=== PATIENT | female | born 1965 | race Hispanic/Latino ===

== ENCOUNTER 2018-02-20 11:18 | Inpatient (IN) | payer OTHER ==
[2018-02-20 11:22] VITALS: BMI 32.5
[2018-02-20] MEDS ORDERED: Levalbuterol 1.25 MG/3 ML Inhal Soln UD IH STA ×2 (11:26)
--- NOTE | 2018-02-20 11:33 | ED PDOC ---
Arrival/HPI - General Time Seen by Provider: 02/20/18 11:24 Historian: Patient - History of Present Illness Narrative History of Present Illness (Text): 02/20/18 11:22 A 53 year old female, whose past medical history includes lung cancer, uterine cancer, and asthma, presents to the emergency department complaining of shortness of breath yesterday. Per EMS, patient was found to have rapid heart rate and was not given any medications in the field. Patient reports also experiencing fever and cough, but denies any pain. No PMD Past Medical History - Provider Review Nursing Documentation Reviewed: Yes - Cardiac Hx Cardiac Disorders: No - Pulmonary Hx Respiratory Disorders: Yes Hx Asthma: Yes Hx Chronic Obstructive Pulmonary Disease (COPD): Yes Hx Lung Cancer: Yes - Neurological Hx Neurological Disorder: No - HEENT Hx HEENT Disorder: No - Renal Hx Renal Disorder: No - Endocrine/Metabolic Hx Endocrine Disorders: No - Hematological/Oncological Hx Blood Disorders: Yes Hx Cancer: Yes Hx Hepatitis B: Yes Hx Hepatitis C: Yes Other/Comment: MRSA abcess on back - Integumentary Hx Dermatological Disorder: No - Musculoskeletal/Rheumatological Hx Musculoskeletal Disorders: No - Gastrointestinal Hx Gastrointestinal Disorders: Yes Hx Gastroesophageal Reflux: Yes - Genitourinary/Gynecological Hx Genitourinary Disorders: No - Psychiatric Hx Psychophysiologic Disorder: Yes Hx Depression: Yes - Surgical History Hx Section: Yes Hx Hysterectomy: Yes Hx Vascular Access Device: Yes (SRI CATH INSERTION X 2 & REMOVAL ) Other/Comment: SPLEENECTOMY 2009 - Anesthesia Hx Anesthesia: Yes Hx Anesthesia Reactions: No Hx Malignant Hyperthermia: No Family/Social History - Physician Review Nursing Documentation Reviewed: Yes Family/Social History: No Known Family HX Smoking Status: Current Some Days Smoker Allergies/Home Meds Allergies/Adverse Reactions: Allergies No Known Allergies Allergy (Verified 02/20/18 19:21) Home Medications: Home Meds Medication Instructions Recorded Confirmed Albuterol HFA [Ventolin HFA 90 1 puff IH QID PRN 08/04/14 08/05/14 mcg/actuation (8 g)] Montelukast [Singulair] 10 mg PO DAILY 08/04/14 08/05/14 Sertraline [Zoloft] 50 mg PO DAILY 08/04/14 08/05/14 Vitamin B Complex & Vitamin C 1 tab PO DAILY 08/04/14 08/05/14 [Strovite] Famotidine [Pepcid] 20 mg PO DAILY 02/20/18 Meloxicam [Mobic] 15 mg PO DAILY 02/20/18 Oxycodone HCl [Roxicodone] 30 mg PO Q6 PRN 02/20/18 fentaNYL 100mcg/hr [Duragesic 100 mcg TD Q72 02/20/18 Patch 100mcg/hr] Review of Systems - Physician Review All systems were reviewed & negative as marked: Yes - Review of Systems Constitutional: Fevers Respiratory: SOB, Cough Cardiovascular: absent: Chest Pain Gastrointestinal: absent: Abdominal Pain Physical Exam Vital Signs Temp Pulse Resp BP Pulse Ox 02/20/18 13:40 169 H 20 92/43 L 89 L 02/20/18 12:55 97.9 F 149 H 20 142/74 89 L 02/20/18 12:31 150 H 02/20/18 11:25 200 H 132/107 H 02/20/18 11:19 97.8 F 200 H 42 H 132/107 H 86 L Appearance: Positive for: Ill-Appearing Pain Distress: None Mental Status: Positive for: Alert and Oriented X 3 - Systems Exam Head: Present: Atraumatic, Normocephalic Respiratory/Chest: Present: Rhonchi (diffuse) Cardiovascular: Present: Irregular Rhythm Abdomen: No: Tenderness, Distention, Peritoneal Signs Upper Extremity: Present: Normal Inspection. No: Cyanosis, Edema Lower Extremity: Present: Normal Inspection. No: Edema Neurological: Present: GCS=15, CN II-XII Intact, Speech Normal Skin: Present: Warm, Dry, Normal Color. No: Rashes Psychiatric: Present: Alert, Oriented x 3, Normal Insight, Normal Concentration Medical Decision Making ED Course and Treatment: 02/20/18 11:25 Impression: 53 year old female with shortness of breath, cough, and fever. Physical exam shows diffuse rhonchi and irregularly irregular rhythm. Plan: -- EKG -- Chest X-ray -- Labs -- Venous Blood Gas -- Cardizem -- Xopenex -- SOLU-Medrol -- Zosyn -- Blood Culture -- Urine Culture -- Urinalysis -- Reassess and disposition Progress Notes: EKG: Ordered, reviewed, and independently interpreted the EKG. Rate : 180 BPM Rhythm : Atrial Fibrillation with Rapid Ventricular Response. Interpretation : No ST-segment elevations or depressions, no T-wave inversions, normal intervals. Comparison : No previous EKG for comparison. 02/20/2018 11:47 Chest X-ray IMPRESSION: Masslike consolidation in the right lung more dense in the upper pole. Findings could represent pneumonia or neoplasm. Correlation with CT scan with intravenous contrast is recommended for further evaluation. Dictator: Mary Garcia MD 02/20/18 11:53 Code Sepsis called. PROCEDURE: INTUBATION Performed by the emergency provider Time: Consent: Discussion of the risks, benefits, and alternatives to the procedure, along with informed consent was precluded by the urgency of the procedure and the patient condition. Timeout: A timeout to verify the correct patient, procedure, and site was performed. Indication: Pre-oxygenation: [id number] Medications: . See MAR for details. ETT Size: Confirmation: Cords directly visualized as tube passed, good bilateral breath sounds, positive CO2 detector color change, tube fogging, adequate chest rise, improving pulse oximetry reading, improved skin color, and absence of gastric sounds,. ETT Secured: The cuff was inflated and the tube was secured appropriately at a distance of cm at the lip. Post-Procedure: There were no immediate complications. CXR Confirmation: {Yes / No} 02/20/2018 13:35 Chest X-ray IMPRESSION: Endotracheal tube in satisfactory position. Dictator: Yonatan Amaya MD 02/23/18 23:06 upon arriavl pt tachycardic, tachypneia, not tolerating bipap. son endorsed h/o of narcotic abuse, suspect w/d. pt intubated for airway proeection. dr ginny kincaid. accepts icu. antibotics started. poor prognosis discussed with family - Critical Care Critical Care Minutes: 60 minutes - Lab Interpretations Microbiology Results: Microbiology Results 02/20/18 11:30 Blood S.aureus & Coag-Neg Staph PNA FISH - Final 02/20/18 11:30 Blood Blood Culture - Final Streptococcus Pneumoniae 02/20/18 11:30 Blood Gram Stain - Final 02/20/18 11:45 Blood Blood Culture - Final Streptococcus Pneumoniae 02/20/18 11:45 Blood Gram Stain - Final Lab Results: 02/20/18 11:30 02/20/18 11:30 Lab Results 02/20/18 12:00: Alcohol, Quantitative < 10 02/20/18 12:00: Salicylates < 1 L, Acetaminophen < 10.0 L 02/20/18 11:30: Sodium 138, Chloride 99, Potassium 3.3 L, Carbon Dioxide 17 L, Anion Gap 25 H, BUN 61 H, Creatinine 1.2, Est GFR ( Amer) 57, Est GFR ( Non-Af Amer) 47, Random Glucose 66 L, Calcium 8.1 L, Magnesium 1.5 L, Total Bilirubin 4.0 H, AST 131 H, ALT 58 H, Alkaline Phosphatase 152 H, Lactate Dehydrogenase 807 H, Total Creatine Kinase 145, Troponin I 0.05, NT-Pro-B Natriuret Pep 6280 H, Total Protein 6.4, Albumin 3.1, Globulin 3.3, Albumin/ Globulin Ratio 0.9 L 02/20/18 11:30: PT 16.5 H, INR 1.42 H, APTT 45.8 H 02/20/18 11:30: WBC 16.5 H, RBC 4.20, Hgb 14.9, Hct 38.8, MCV 92.4, MCH 35.5 H, MCHC 38.4 H, RDW 13.0, Plt Count 83 L, MPV 13.4 H, Gran % 94.9 H, Lymph % (Auto ) 3.9 L, [place] % (Auto) 1.0, Eos % (Auto) 0.0 L, Baso % (Auto) 0.2, Gran # 15.70 H, Lymph # (Auto) 0.6 L, [place] # (Auto) 0.2, Eos # (Auto) 0.0, Baso # (Auto) 0.03 , Neutrophils % (Manual) 92 H, Band Neutrophils % 2, Lymphocytes % (Manual) 4 L , Monocytes % (Manual) 1, Metamyelocytes % 1, Platelet Evaluation Low 02/20/18 11:30: pO2 48, VBG pH 7.30 L, VBG pCO2 34.0 L, VBG HCO3 16.7 L, VBG Total CO2 17.7 L, VBG O2 Sat (Calc) 81.9 H, VBG Base Excess -8.8 L, VBG Potassium 3.2 L, Sodium 135.0, Chloride 98.0, Glucose 69, Lactate 7.8 H*, FiO2 21.0, Venous Blood Potassium 3.2 L I have reviewed the lab results: Yes - RAD Interpretation Radiology Orders: 02/20/18 11:25 CHEST PORTABLE [RAD] Stat - Medication Orders Current Medication Orders: Discontinued Medications Albuterol Sulfate (Albuterol 0.083% Inhal Michelle (2.5 Mg/3 Ml) Ud) 10 mg INH STAT STA Stop: 02/22/18 01:18 Last Admin: 02/22/18 01:45 Dose: 10 mg Albuterol/Ipratropium (Duoneb 3 Mg/0.5 Mg (3 Ml) Ud) 3 ml IH [id number] LEE ANN Last Admin: 02/22/18 14:09 Dose: 3 ml Calcium Gluconate (Calcium Gluconate Iv) 1,000 mg IVP ONCE ONE Stop: 02/21/18 16:21 Last Admin: 02/21/18 17:19 Dose: 1,000 mg IVP Administration Document 02/21/18 17:19 MG (Rec: 02/21/18 17:19 MG [id number]) Charges for Administration # of IVP Administrations 1 Cisatracurium Besylate (Nimbex) 8 mg IV ONCE ONE Stop: 02/20/18 14:35 Last Admin: 02/20/18 15:56 Dose: 8 mg eMAR Start Stop Document 02/20/18 15:56 JUR (Rec: 02/20/18 15:56 J[facility] [place] Intravenous Solution Start Date 02/20/18 Start Time 15:56 Dextrose (Dextrose 50% Inj) 50 ml IVP ONCE ONE Stop: 02/21/18 16:16 Last Admin: 02/21/18 16:20 Dose: 50 ml IVP Administration Document 02/21/18 16:20 MG (Rec: 02/21/18 17:32 MG [id number]) Charges for Administration # of IVP Administrations 1 Dextrose (Dextrose 50% Inj) 50 ml IVP ONCE ONE Stop: 02/21/18 23:17 Last Admin: 02/21/18 23:57 Dose: 50 ml IVP Administration Document 02/21/18 23:57 QES (Rec: 02/22/18 00:16 QES [id number]) Charges for Administration # of IVP Administrations 1 Dextrose (Dextrose 50% Inj) 50 ml IVP ONCE ONE Stop: 02/22/18 07:36 Last Admin: 02/22/18 08:39 Dose: 50 ml IVP Administration Document 02/22/18 08:39 [facility] (Rec: 02/22/18 08:39 [facility] [id number]) Charges for Administration # of IVP Administrations 1 Dextrose (Dextrose 50% Inj) 50 ml IVP ONCE ONE Stop: 02/22/18 14:16 Digoxin (Lanoxin) 0.25 mg IVP ONCE ONE Stop: 02/20/18 15:15 Last Admin: 02/20/18 15:31 Dose: 0.25 mg MAR Apical Pulse Rate Document 02/20/18 15:31 JUR (Rec: 02/20/18 15:32 JUR [id number]) Apical Pulse Rate Apical Pulse Rate (60-90 beats/min) 160 IVP Administration Document 02/20/18 15:31 JUR (Rec: 02/20/18 15:32 [email or web address] Charges for Administration # of IVP Administrations 1 Digoxin (Lanoxin) 0.25 mg IVP ONCE ONE Stop: 02/20/18 15:33 Last Admin: 02/20/18 15:05 Dose: 0.25 mg MAR Apical Pulse Rate Document 02/20/18 15:05 JUR (Rec: 02/20/18 17:14 [facility] Apical Pulse Rate Apical Pulse Rate (60-90 beats/min) 140 IVP Administration Document 02/20/18 15:05 JUR (Rec: 02/20/18 17:14 [facility] Charges for Administration # of IVP Administrations 1 Digoxin (Lanoxin) 0.5 mg IVP STAT STA Stop: 02/21/18 09:36 Last Admin: 02/21/18 09:41 Dose: 0.5 mg MAR Apical Pulse Rate Document 02/21/18 09:41 MG (Rec: 02/21/18 09:41 MG [id number]) Apical Pulse Rate Apical Pulse Rate (60-90 beats/min) 120 IVP Administration Document 02/21/18 09:41 MG (Rec: 02/21/18 09:41 MG [id number]) Charges for Administration # of IVP Administrations 1 Diltiazem HCl (Cardizem) 20 mg IVP STAT STA Stop: 02/20/18 11:27 Last Admin: 02/20/18 11:55 Dose: Enoxaparin Sodium (Lovenox) 86 mg SC STAT STA PRN Reason: Protocol Stop: 02/20/18 12:05 Last Admin: 02/20/18 12:30 Dose: 86 mg Subcutaneous Administrations Document 02/20/18 12:30 SRE (Rec: 02/20/18 12:31 SRE [id number]) Injection Site MAR Injection Site Left Abdomen Charges for Administration # of Subcutaneous Administrations 1 Enoxaparin Sodium (Lovenox) 86 mg SC Q12H LEE ANN PRN Reason: Protocol Last Admin: 02/21/18 00:14 Dose: 86 mg Subcutaneous Administrations Document 02/21/18 00:14 PD (Rec: 02/21/18 00:14 PD [id number]) Charges for Administration # of Subcutaneous Administrations 1 Enoxaparin Sodium (Lovenox) 86 mg SC DAILY LEE ANN PRN Reason: Protocol Hydrocortisone Sodium Succinate (Solu-Cortef) 50 mg IVP Q6 [facility] Last Admin: 02/22/18 05:29 Dose: 50 mg IVP Administration Document 02/22/18 05:29 QES (Rec: 02/22/18 05:29 QES [id number]) Charges for Administration # of IVP Administrations 1 Piperacillin Sod/Tazobactam Sod (Zosyn 3.375 In Ns 100ml) 100 mls @ 200 mls/hr IVPB STAT STA PRN Reason: Protocol Stop: 02/20/18 12:04 Last Admin: 02/20/18 11:54 Dose: 200 mls/hr eMAR Start Stop Document 02/20/18 11:54 SRE (Rec: 02/20/18 11:54 SRE [id number]) Intravenous Solution Start Date 02/20/18 Start Time 11:54 End Date 02/20/18 End time 12:55 Total Infusion Time 61 Vancomycin HCl (Vancomycin 1gm) 1 gm in 250 mls @ 167 mls/hr IVPB STAT STA PRN Reason: Protocol Stop: 02/20/18 13:04 Last Admin: 02/20/18 12:41 Dose: 167 mls/hr eMAR Start Stop Document 02/20/18 12:41 SRE (Rec: 02/20/18 12:42 SRE [id number]) Intravenous Solution Start Date 02/20/18 Start Time 12:42 End Date 02/20/18 End time 14:20 Total Infusion Time 98 Sodium Chloride (Sodium Chloride 0.9%) 500 mls @ 999 mls/hr IV .Q31M STA Stop: 02/20/18 12:23 Last Admin: 02/20/18 12:05 Dose: 999 mls/hr eMAR Start Stop Document 02/20/18 12:05 SRE (Rec: 02/20/18 12:05 SRE [id number]) Intravenous Solution Start Date 02/20/18 Start Time 12:00 End Date 02/20/18 End time 13:00 Total Infusion Time 60 diltiaZEM IVPB 100mg in NS (Cardizem 100mg In Ns) 100 mls @ 5 mls/hr IV .Q20H PRN; Protocol; 5 MG/HR PRN Reason: TITRATE PER MD ORDER Last Titration: 02/21/18 12:13 Dose: 0 mg/hr, 0 mls/hr MAR Pulse Rate Document 02/21/18 12:13 ALIPM (Rec: 02/21/18 12:[address]) Pulse Rate Pulse Rate (60-90) 80 Titration Intervention Document 02/21/18 12:13 ALIPM (Rec: 02/21/18 12:[address]) Titration Intake Titration Intake 50 Cumulative Intake 60 Cumulative Intake (Rx) 160 Waste Amount 0 Container Volume 40 Titration Dosing Titration Dose 0 IV Rate 0 Intake/Decrease Paused Cumulative Dose 160 Propofol (Diprivan) 1,000 mg in 100 mls @ 2.585 mls/hr IV .Q24H PRN; Protocol; 5 MCG/KG/MIN PRN Reason: TITRATE PER MD ORDER Last Titration: 02/20/18 18:39 Dose: 0 mcg/kg/min, 0 mls/hr Yen Agitation Sedation Document 02/20/18 18:39 JUR (Rec: 02/20/18 18:43 [facility] Yen Agitation Sedation Scale Yen Agitation Sedation Scale Score -2 Light Sedation: briefly awakens with eye contact to voice (<10 sec) Titration Intervention Document 02/20/18 18:39 JUR (Rec: 02/20/18 18:43 [facility] [place]) Titration Intake Titration Intake 50 Cumulative Intake 50 Cumulative Intake (Rx) 50 Waste Amount 0 Container Volume 50 Titration Dosing Titration Dose 0 IV Rate 0 Intake/Decrease Paused Cumulative Dose 500 Fentanyl Citrate (Fentanyl Citrate/Sodium Chloride 1 Mg/100 Ml) 1,000 mcg in 100 mls @ 2 mls/hr IV .Q24H PRN; Protocol; 20 MCG/HR PRN Reason: TITRATE PER MD ORDER Last Titration: 02/21/18 14:12 Dose: 0 mcg/hr, 0 mls/hr Yen Agitation Sedation Document 02/21/18 14:12 MG (Rec: 02/21/18 14:49 MG [id number]) Yen Agitation Sedation Scale Yen Agitation Sedation Scale Score -1 Drowsy: Not fully alert, sustained awakening (>10 sec) to voice Titration Intervention Document 02/21/18 14:12 MG (Rec: 02/21/18 14:49 MG [id number]) Titration Intake Titration Intake 95 Cumulative Intake 95 Cumulative Intake (Rx) 195 Waste Amount 0 Container Volume 5 Titration Dosing Titration Dose 0 IV Rate 0 Intake/Decrease Paused Cumulative Dose 1950 Acetylcysteine 12,930 mg/ (Dextrose) 264.65 mls @ 200 mls/hr IVPB ONCE ONE Stop: 02/20/18 14:49 Last Admin: 02/20/18 15:04 Dose: 200 mls/hr eMAR Start Stop Document 02/20/18 15:04 JUR (Rec: 02/20/18 15:04 JUR [email or web address]) Intravenous Solution Start Date 02/20/18 Start Time 15:04 Doxycycline Hyclate 100 mg/ (Sodium Chloride) 100 mls @ 100 mls/hr IVPB Q12 LEE ANN PRN Reason: Protocol Last Admin: 02/22/18 10:55 Dose: 100 mls/hr eMAR Start Stop Document 02/22/18 10:55 KAC (Rec: 02/22/18 10:55 KAC [id number]) Intravenous Solution Start Date 02/22/18 Start Time 10:55 End Date 02/22/18 End time 11:55 Total Infusion Time 60 Sodium Chloride (Sodium Chloride 0.9%) 500 mls @ 999 mls/hr IV .Q31M STA Stop: 02/20/18 14:19 Last Admin: 02/20/18 13:50 Dose: 999 mls/hr eMAR Start Stop Document 02/20/18 13:50 JUR (Rec: 02/20/18 17:36 [facility] Intravenous Solution Start Date 02/20/18 Start Time 13:50 Magnesium Sulfate 2 gm/ Sodium (Chloride) 104 mls @ 102 mls/hr IV ONCE ONE Stop: 02/20/18 14:50 Last Admin: 02/20/18 15:11 Dose: 102 mls/hr eMAR Start Stop Document 02/20/18 15:11 JUR (Rec: 02/20/18 15:11 JUR [email or web address]) Intravenous Solution Start Date 02/20/18 Start Time 15:11 End Date 02/20/18 End time 16:11 Total Infusion Time 60 Potassium Chloride (Potassium Chloride 10 Meq/100 Ml) 10 meq in 100 mls @ 50 mls/hr IVPB Q2H [facility] Stop: 02/20/18 17:59 Last Admin: 02/20/18 17:50 Dose: 50 mls/hr eMAR Start Stop Document 02/20/18 17:50 JUR (Rec: 02/20/18 17:50 [facility] Intravenous Solution Start Date 02/20/18 Start Time 17:50 End Date 02/20/18 End time 19:50 Total Infusion Time 120 Dextrose/Sodium Chloride (Dextrose 5%/0.9% Ns 1000 Ml) 1,000 mls @ 150 mls/hr IV .Q6H40M [facility] Last Admin: 02/21/18 04:08 Dose: 150 mls/hr eMAR Start Stop Document 02/21/18 04:08 PD (Rec: 02/21/18 04:08 PD [id number]) Intravenous Solution Start Date 02/21/18 Start Time 04:08 Acetylcysteine 4,310 mg/ (Dextrose) 521.55 mls @ 125 mls/hr IVPB ONCE ONE Stop: 02/20/18 18:30 Last Admin: 02/20/18 18:37 Dose: 125 mls/hr eMAR Start Stop Document 02/20/18 18:37 JUR (Rec: 02/20/18 18:38 [facility] Intravenous Solution Start Date 02/20/18 Start Time 17:50 Cisatracurium Besylate 100 mg/ (Sodium Chloride) 260 mls @ 13.44 mls/hr IV .[id number] PRN; Protocol; 1 MCG/KG/MIN PRN Reason: TITRATE PER MD ORDER Last Titration: 02/21/18 14:10 Dose: 0 mcg/kg/min, 0 mls/hr Train of Four (TOF) Document 02/21/18 14:10 MG (Rec: 02/21/18 14:51 MG [id number]) Number of twitches: 0 of 4 Titration Intervention Document 02/21/18 14:10 MG (Rec: 02/21/18 14:51 MG [id number]) Titration Intake Titration Intake 14 Cumulative Intake 14 Cumulative Intake (Rx) 534 Waste Amount 0 Container Volume 246 Titration Dosing Titration Dose 0 IV Rate 0 Intake/Decrease Paused Cumulative Dose 205.3844 Sodium Chloride (Sodium Chloride 0.9%) 1,000 mls @ 999 mls/hr IV .Q1H1M STA Stop: 02/20/18 15:38 Last Admin: 02/20/18 17:23 Dose: eMAR Start Stop Document 02/20/18 17:23 JUR (Rec: 02/20/18 17:24 JUR [facility] [place] Intravenous Solution Start Date 02/20/18 Start Time 17:24 Midazolam 100 mg/100ml in NS (Midazolam 100 Mg/100ml In Ns) 100 mg in 100 mls @ 1 mls/hr IV .Q24H PRN; Protocol; 1 MG/HR PRN Reason: Sedation Last Titration: 02/21/18 14:12 Dose: 0 mg/hr, 0 mls/hr Yen Agitation Sedation Document 02/21/18 14:12 MG (Rec: 02/21/18 14:50 MG [id number]) Yen Agitation Sedation Scale Yen Agitation Sedation Scale Score -1 Drowsy: Not fully alert, sustained awakening (>10 sec) to voice Titration Intervention Document 02/21/18 14:12 MG (Rec: 02/21/18 14:50 MG [id number]) Titration Intake Titration Intake 30 Cumulative Intake 30 Cumulative Intake (Rx) 130 Waste Amount 0 Container Volume 70 Titration Dosing Titration Dose 0 IV Rate 0 Intake/Decrease Paused Cumulative Dose 130 NOREPINEPHRINE BIT/0.9 % NACL (Levophed 4 Mg/ 250 Ml Ns Premixed) 4 mg in 250 mls @ 15 mls/hr IV .[id number] PRN; Protocol; 4 MCG/MIN PRN Reason: TITRATE PER MD ORDER Last Titration: 02/22/18 01:20 Dose: 10 mcg/min, 37.5 mls/hr Titration Intervention Document 02/22/18 01:20 QES (Rec: 02/22/18 04:00 QES [id number]) Titration Intake Titration Intake 30 Cumulative Intake 30 Cumulative Intake (Rx) 1,280 Waste Amount 0 Container Volume 220 Titration Dosing Titration Dose 10 IV Rate 37.5 Intake/Decrease Increased Cumulative Dose 20.48 Sodium Chloride (Sodium Chloride 0.9%) 1,000 mls @ 999 mls/hr IV .Q1H1M STA Stop: 02/20/18 15:48 Last Admin: 02/20/18 14:45 Dose: 999 mls/hr eMAR Start Stop Document 02/20/18 14:45 JUR (Rec: 02/20/18 17:27 [facility] Intravenous Solution Start Date 02/20/18 Start Time 14:45 Vasopressin 20 units/ Sodium (Chloride) 101 mls @ 9.09 mls/hr IV .Q11H7M LEE ANN; 0.03 U/MIN PRN Reason: Protocol Last Admin: 02/22/18 10:59 Dose: 9.09 mls/hr eMAR Start Stop Document 02/22/18 10:59 KAC (Rec: 02/22/18 11:00 [id number] Intravenous Solution Start Date 02/22/18 Start Time 11:00 MAR Blood Pressure Document 02/22/18 10:59 KAC (Rec: 02/22/18 11:00 [id number] Blood Pressure Blood Pressure (100/60-150/90) 117/31 Meropenem (Merrem Iv 1 Gm Premix) 50 mls @ 100 mls/hr IVPB Q12 LEE ANN PRN Reason: Protocol Last Admin: 02/20/18 22:31 Dose: 100 mls/hr eMAR Start Stop Document 02/20/18 22:31 PD (Rec: 02/20/18 22:31 PD [id number]) Intravenous Solution Start Date 02/20/18 Start Time 22:31 Linezolid (Zyvox 600mg/300ml D5w) 600 mg in 300 mls @ 200 mls/hr IVPB Q12 LEE ANN PRN Reason: Protocol Stop: 02/27/18 16:46 Last Admin: 02/21/18 22:01 Dose: 200 mls/hr eMAR Start Stop Document 02/21/18 22:01 QES (Rec: 02/21/18 22:01 QES [id number]) Intravenous Solution Start Date 02/21/18 Start Time 22:01 End Date 02/21/18 End time 23:31 Total Infusion Time 90 Acetaminophen (Ofirmev) 1,000 mg in 100 mls @ 400 mls/hr IVPB Q4H PRN PRN Reason: Temperature Stop: 02/23/18 01:04 Last Admin: 02/21/18 09:00 Dose: 400 mls/hr eMAR Start Stop Document 02/21/18 09:00 MG (Rec: 02/21/18 09:17 MG [id number]) Intravenous Solution Start Date 02/21/18 Start Time 09:00 [facility] Pain Assessment Document 02/21/18 09:00 MG (Rec: 02/21/18 09:17 MG [id number]) Pain Reassessment Is this a pain reassessment? No Re-Assess: [facility] Pain Assessment Document 02/21/18 10:00 MG (Rec: 02/21/18 10:20 MG [id number]) Pain Reassessment Is this a pain reassessment? No Epinephrine HCl 1 mg/ Sodium (Chloride) 51 mls @ 3.06 mls/hr IV .[id number] PRN; Protocol; 1 MCG/MIN PRN Reason: TITRATE PER MD ORDER Last Titration: 02/21/18 06:22 Dose: 5 mcg/min, 15.3 mls/hr Titration Intervention Document 02/21/18 06:22 PD (Rec: 02/21/18 06:22 PD [id number]) Titration Intake Titration Intake 11 Cumulative Intake 11 Cumulative Intake (Rx) 11 Waste Amount 0 Container Volume 40 Titration Dosing Titration Dose 5 IV Rate 15.3 Intake/Decrease Increased Cumulative Dose 0.2156 Phenylephrine HCl 40 mg/ (Sodium Chloride) 254 mls @ 38.1 mls/hr IV .Q6H40M PRN ; Protocol; 100 MCG/MIN PRN Reason: TITRATE PER MD ORDER Last Titration: 02/21/18 14:12 Dose: 0 mcg/min, 0 mls/hr MAR Pulse and Blood Pressure Document 02/21/18 14:12 MG (Rec: 02/21/18 14:51 MG [id number]) Pulse Pulse Rate (60-90) 75 Blood Pressure Blood Pressure (100/60-150/90) 125/56 Titration Intervention Document 02/21/18 14:12 MG (Rec: 02/21/18 14:51 MG [id number]) Titration Intake Titration Intake 85 Cumulative Intake 179 Cumulative Intake (Rx) 179 Waste Amount 0 Container Volume 75 Titration Dosing Titration Dose 0 IV Rate 0 Intake/Decrease Paused Cumulative Dose 28.1889 Pantoprazole Sodium (Protonix 40mg Ivpb) 40 mg in 100 mls @ 20 mls/hr IVPB .Q5H LEE ANN Last Admin: 02/22/18 10:50 Dose: 20 mls/hr eMAR Start Stop Document 02/22/18 10:50 KAC (Rec: 02/22/18 10:50 KAC [id number]) Intravenous Solution Start Date 02/22/18 Start Time 10:50 Meropenem (Merrem Iv 1 Gm Premix) 50 mls @ 100 mls/hr IVPB Q8 LEE ANN PRN Reason: Protocol Last Admin: 02/22/18 05:30 Dose: 100 mls/hr eMAR Start Stop Document 02/22/18 05:30 QES (Rec: 02/22/18 05:30 QES [id number]) Intravenous Solution Start Date 02/22/18 Start Time 05:30 End Date 02/22/18 End time 06:00 Total Infusion Time 30 Daptomycin 520 mg/ Sodium (Chloride) 100 mls @ 200 mls/hr IV ONCE ONE Stop: 02/21/18 09:44 Last Admin: 02/21/18 11:18 Dose: 200 mls/hr eMAR Start Stop Document 02/21/18 11:18 MG (Rec: 02/21/18 11:19 MG [id number]) Intravenous Solution Start Date 02/21/18 Start Time 11:18 End Date 02/21/18 End time 11:48 Total Infusion Time 30 Calcium Gluconate 1,000 mg/ (Sodium Chloride) 110 mls @ 110 mls/hr IVPB ONCE ONE Stop: 02/21/18 13:11 Last Admin: 02/21/18 12:36 Dose: 110 mls/hr eMAR Start Stop Document 02/21/18 12:36 MG (Rec: 02/21/18 12:37 MG [id number]) Intravenous Solution Start Date 02/21/18 Start Time 12:36 Sodium Chloride (Sodium Chloride 0.9%) 1,000 mls @ 999 mls/hr IV .Q1H1M [facility] Stop: 02/21/18 13:19 Last Admin: 02/21/18 12:20 Dose: 999 mls/hr eMAR Start Stop Document 02/21/18 12:20 MG (Rec: 02/21/18 12:20 MG [id number]) Intravenous Solution Start Date 02/21/18 Start Time 12:20 Sodium Bicarbonate 150 meq/ (Dextrose) 1,150 mls @ 100 mls/hr IV .[id number] [facility] Last Admin: 02/21/18 14:07 Dose: 100 mls/hr eMAR Start Stop Document 02/21/18 14:07 MG (Rec: 02/21/18 14:09 MG [id number]) Intravenous Solution Start Date 02/21/18 Start Time 14:08 Sodium Bicarbonate 150 meq/ (Dextrose) 1,150 mls @ 150 mls/hr IV .Q7H40M [facility] Last Admin: 02/22/18 08:29 Dose: 150 mls/hr eMAR Start Stop Document 02/22/18 08:29 KAC (Rec: 02/22/18 08:29 KAC [id number]) Intravenous Solution Start Date 02/22/18 Start Time 08:29 Calcium Gluconate 1,000 mg/ (Dextrose) 110 mls @ 110 mls/hr IVPB ONCE ONE Stop: 02/22/18 00:15 Last Admin: 02/22/18 00:16 Dose: 110 mls/hr eMAR Start Stop Document 02/22/18 00:16 QES (Rec: 02/22/18 00:17 QES [id number]) Intravenous Solution Start Date 02/22/18 Start Time 00:16 End Date 02/22/18 End time 01:16 Total Infusion Time 60 Meropenem 500 mg/ Sodium (Chloride) 50 mls @ 100 mls/hr IVPB Q12 LEE ANN PRN Reason: Protocol Stop: 03/01/18 10:01 Last Admin: 02/22/18 10:52 Dose: 100 mls/hr eMAR Start Stop Document 02/22/18 10:52 KAC (Rec: 02/22/18 10:54 KAC [id number]) Intravenous Solution Start Date 02/22/18 Start Time 10:53 End Date 02/22/18 End time 11:27 Total Infusion Time 34 Vancomycin HCl 2 gm/ Sodium (Chloride) 500 mls @ 170 mls/hr IVPB ONCE ONE PRN Reason: Protocol Stop: 02/22/18 11:36 Last Admin: 02/22/18 10:54 Dose: 170 mls/hr eMAR Start Stop Document 02/22/18 10:54 KAC (Rec: 02/22/18 10:54 KAC [id number]) Intravenous Solution Start Date 02/22/18 Start Time 09:00 End Date 02/22/18 End time 11:55 Total Infusion Time 175 Calcium Gluconate 1,000 mg/ (Dextrose) 110 mls @ 110 mls/hr IVPB ONCE ONE Stop: 02/22/18 10:20 Last Admin: 02/22/18 10:50 Dose: 110 mls/hr eMAR Start Stop Document 02/22/18 10:50 KAC (Rec: 02/22/18 10:51 KAC [id number]) Intravenous Solution Start Date 02/22/18 Start Time 10:51 End Date 02/22/18 End time 11:51 Total Infusion Time 60 Insulin Human Regular (Humulin R Med) 0 units SC Q4H LEE ANN PRN Reason: Protocol Last Admin: 02/22/18 05:44 Dose: 3 units MAR Blood Glucose Document 02/22/18 05:44 QES (Rec: 02/22/18 05:44 QES [id number]) Blood Glucose Finger Stick Blood Glucose (70-120) 244 Subcutaneous Administrations Document 02/22/18 05:44 QES (Rec: 02/22/18 05:44 QES [id number]) Injection Site MAR Injection Site Right Arm Charges for Administration # of Subcutaneous Administrations 1 Insulin Human Regular (Humulin R) 10 units IV STAT STA Stop: 02/21/18 16:16 Last Admin: 02/21/18 16:20 Dose: 1 units eMAR Start Stop Document 02/21/18 16:20 MG (Rec: 02/21/18 17:32 MG [id number]) Intravenous Solution Start Date 02/21/18 Start Time 16:20 Insulin Human Regular (Humulin R) 10 units IVP ONCE ONE Stop: 02/21/18 23:18 Last Admin: 02/21/18 23:57 Dose: 10 units IVP Administration Document 02/21/18 23:57 QES (Rec: 02/22/18 00:16 QES [id number]) Charges for Administration # of IVP Administrations 1 Insulin Human Regular (Humulin R) 10 units SC STAT STA Stop: 02/22/18 07:36 Last Admin: 02/22/18 08:38 Dose: 10 units Subcutaneous Administrations Document 02/22/18 08:38 KA (Rec: 02/22/18 08:38 [facility] [id number]) Charges for Administration # of Subcutaneous Administrations 1 Insulin Human Regular (Humulin R) 10 units IV ONCE ONE Stop: 02/22/18 14:16 Levalbuterol HCl (Xopenex) 1.25 mg IH STAT STA Stop: 02/20/18 11:27 Last Admin: 02/20/18 11:52 Dose: 1.25 mg Levalbuterol HCl (Xopenex) 1.25 mg IH STAT STA Stop: 02/20/18 11:27 Last Admin: 02/20/18 11:40 Dose: 1.25 mg Levalbuterol HCl (Xopenex) 0.63 mg IH [id number] [facility] Last Admin: 02/21/18 06:56 Dose: 0.63 mg Lorazepam (Ativan) 1 mg IVP ONCE ONE PRN Reason: Protocol Stop: 02/20/18 12:10 Last Admin: 02/20/18 12:20 Dose: 1 mg IVP Administration Document 02/20/18 12:20 SRE (Rec: 02/20/18 12:34 SRE [id number]) Charges for Administration # of IVP Administrations 1 Methylprednisolone (Solu-Medrol) 125 mg IVP STAT STA Stop: 02/20/18 11:27 Last Admin: 02/20/18 11:52 Dose: 125 mg IVP Administration Document 02/20/18 11:52 SRE (Rec: 02/20/18 11:52 SRE [id number]) Charges for Administration # of IVP Administrations 1 Morphine Sulfate (Morphine) 4 mg IVP STAT STA Stop: 02/22/18 14:18 Last Admin: 02/22/18 14:34 Dose: 4 mg MAR Pain Assessment Document 02/22/18 14:34 [facility] (Rec: 02/22/18 14:34 [facility] [id number]) Pain Reassessment Is this a pain reassessment? No Sleep Is patient sleeping during reassessment? No Presence of Pain Presence of Pain No Pain Scale Used Pain Scale Used terminal e IVP Administration Document 02/22/18 14:34 [facility] (Rec: 02/22/18 14:34 [facility] [id number]) Charges for Administration # of IVP Administrations 1 Pantoprazole Sodium (Protonix Inj) 40 mg IVP DAILY LEE ANN Pneumococcal Polyvalent Vaccine (Pneumovax 23 Vaccine) 0.5 ml IM .ONCE ONE Stop: 02/20/18 21:15 Sodium Bicarbonate (Sodium Bicarbonate 8.4% (50 Meq) Syringe) 50 meq IVP ONCE ONE Stop: 02/21/18 03:37 Last Admin: 02/21/18 03:46 Dose: 50 meq IVP Administration Document 02/21/18 03:46 PD (Rec: 02/21/18 03:47 PD [id number]) Charges for Administration # of IVP Administrations 1 Sodium Bicarbonate (Sodium Bicarbonate 8.4% (50 Meq) Syringe) 50 meq IVP ONCE ONE Stop: 02/21/18 16:17 Last Admin: 02/21/18 17:00 Dose: 50 meq IVP Administration Document 02/21/18 17:00 MG (Rec: 02/21/18 17:20 MG [id number]) Charges for Administration # of IVP Administrations 1 Sodium Bicarbonate (Sodium Bicarbonate 8.4% (50 Meq) Syringe) 50 meq IVP ONCE ONE Stop: 02/21/18 16:40 Last Admin: 02/21/18 17:26 Dose: 50 meq IVP Administration Document 02/21/18 17:26 MG (Rec: 02/21/18 17:26 MG [id number]) Charges for Administration # of IVP Administrations 1 Sodium Polystyrene Sulfonate (Kayexalate Susp) 30 gm ID ONCE ONE Stop: 02/22/18 02:19 Last Admin: 02/22/18 03:11 Dose: 30 gm - Scribe Statement The provider has reviewed the documentation as recorded by the Aamir Rowe Provider Scribe Attestation: All medical record entries made by the Aamir were at my direction and personally dictated by me. I have reviewed the chart and agree that the record accurately reflects my personal performance of the history, physical exam, medical decision making, and the department course for this patient. I have also personally directed, reviewed, and agree with the discharge instructions and disposition. Disposition/Present on Arrival - Present on Arrival Any Indicators Present on Arrival: No - Disposition Have Diagnosis and Disposition been Completed?: Yes Diagnosis: Sepsis, Uterine cancer, Pneumonia, Elevated LFTs Disposition: HOSPITALIZED Disposition Time: 02:00 Condition: CRITICAL
[2018-02-20] MEDS ORDERED: Vancomycin 1gm in NS 250ml 1 GM/250 ML BAG IVPB STA (11:35)
[2018-02-20] MEDS ORDERED: Piperacillin/Tazobact 3.375 gm 100 ML IVPB STA (11:35)
[2018-02-20 11:49] LABS: VENOUS BLOOD GAS BASE EXCESS -8.8 mmol/L (0.0-2.0); VENOUS BLOOD GAS PO2 48 mm/Hg (30-55)
--- NOTE | 2018-02-20 11:49 | RAD ---
HISTORY: Cough COMPARISON: PET-CT from 08/23/2017 FINDINGS: The right MediPort terminates at the cavoatrial junction. LUNGS: The lungs are well inflated. There is masslike consolidation in the right lung, more dense in the upper lobe. The left lung is clear. PLEURA: No significant pleural effusion identified, no pneumothorax apparent. CARDIOVASCULAR: Normal. OSSEOUS STRUCTURES: No significant abnormalities. VISUALIZED UPPER ABDOMEN: Normal. OTHER FINDINGS: None. IMPRESSION: Masslike consolidation in the right lung more dense in the upper pole. Findings could represent pneumonia or neoplasm. Correlation with CT scan with intravenous contrast is recommended for further evaluation.
[2018-02-20] MEDS ORDERED: Sodium Chloride 0.9% 500 ML IV STA ×2 (11:53→13:49)
[2018-02-20 11:58] LABS: ALB/GLOB RATIO 0.9 (1.1-1.8); ALBUMIN 3.1 g/dL (3.0-4.8); BASO # 0.03 K/mm3 (0.0-2.0); BASO % 0.2 % (0.0-3.0); CALCIUM 8.1 mg/dL (8.4-10.5); GRAN % 94.9 % (50.0-68.0); HEMOGLOBIN 14.9 g/dL (12.0-16.0); LYMPH # 0.6 (1.2-3.4); LYMPH % 3.9 % (22.0-35.0); MEAN CELL VOLUME 92.4 fl (80.0-105.0); MEAN CORPUSCULAR HEMOGLOBIN 35.5 pg (25.0-35.0); MEAN CORPUSCULAR HGB CONC 38.4 g/dl (31.0-37.0); MEAN PLATELET VOLUME 13.4 fl (7.0-11.0); MONO # 0.2 (0.1-0.6); PLATELET COUNT 83 10^3/uL (120.0-450.0); WHITE BLOOD COUNT 16.5 10^3/ul (4.5-11.0)
[2018-02-20] MEDS ORDERED: Enoxaparin 100 mg Syringe SC STA (12:04)
[2018-02-20 12:08] LABS: TROPONIN I 0.05 ng/mL
[2018-02-20 12:19] LABS: INR 1.42 (0.93-1.08); PARTIAL THROMBOPLASTIN TIME 45.8 Seconds (25.1-36.5); PROTHROMBIN TIME 16.5 SECONDS (9.4-12.5)
[2018-02-20 12:23] LABS: BAND 2 % (0-2); LYMPHOCYTE 4 % (22.0-35.0); METAMYELOCYTE 1 %; MONOCYTE 1 % (1.0-6.0); NEUTROPHIL 92 % (50.0-70.0)
[2018-02-20 12:25] LABS: PLATELET ESTIMATE LOW (NORMAL)
[2018-02-20] MEDS: diltiaZEM IVPB 100mg in NS 100 ML IV PRN ×2 (12:33→21:08)
[2018-02-20 12:46] LABS: ACETAMINOPHEN < 10.0 ug/ml (10.0-20.0); SALICYLATE < 1 mg/dL (2.0-20.0)
[2018-02-20] MEDS ORDERED: Succinylcholine 200 mg/10 ml Inj IV ONE (12:50)
[2018-02-20] MEDS ORDERED: Etomidate 20 mg/10ml Inj IV ONE (12:50)
[2018-02-20] MEDS ORDERED: Propofol 10 mg/ml 1,000 MG/100 ML VIAL IV PRN (13:09)
[2018-02-20] MEDS ORDERED: Propofol 10 mg/ml 1,000 MG/100 ML VIAL ONE (13:10)
--- NOTE | 2018-02-20 13:37 | RAD ---
HISTORY: intubation COMPARISON: No prior. FINDINGS: LUNGS: There is dense consolidation in the right upper lobe and right middle lobe consistent with pneumonia. There an endotracheal tube in satisfactory position PLEURA: No significant pleural effusion identified, no pneumothorax apparent. CARDIOVASCULAR: Normal. OSSEOUS STRUCTURES: No significant abnormalities. VISUALIZED UPPER ABDOMEN: Normal. OTHER FINDINGS: None. IMPRESSION: Endotracheal tube in satisfactory position
[2018-02-20] MEDS ORDERED: Magnesium Sulfate 2 GM in Sodium Chloride 0.9% 100 ML IV ONE (13:49)
[2018-02-20 13:54] LABS: ARTERIAL BLOOD GAS HCO3 15.2 mmol/L (21-28); ARTERIAL BLOOD GAS O2 SAT 89.9 % (95-98); ARTERIAL BLOOD GAS PCO2 33 mm/Hg (35-45); ARTERIAL BLOOD GAS PH 7.27 (7.35-7.45); ARTERIAL BLOOD GAS TCO2 16.2 mmol.L (22-28)
[2018-02-20] MEDS ORDERED: Levalbuterol 0.63 MG/3 ML Inhal Soln UD IH PRN (13:56)
[2018-02-20] MEDS ORDERED: ACETYLCYSTEINE IVPB ONE (14:20)
[2018-02-20] MEDS ORDERED: WATER IVPB ONE (14:20)
[2018-02-20] MEDS ORDERED: DEXTROSE 5% IVPB ONE (14:20)
[2018-02-20 14:37] LABS: URINE BILIRUBIN MODERATE (NEGATIVE); URINE BLOOD NEGATIVE (NEGATIVE); URINE GLUCOSE (UA) 100 mg/dL (NEGATIVE); URINE LEUKOCYTE ESTERASE TRACE Leu/uL (NEGATIVE); URINE PROTEIN 100 mg/dL (<30 mg/dL)
[2018-02-20 14:38] LABS: HCG,QUALITATIVE URINE NEGATIVE (NEGATIVE)
[2018-02-20] MEDS ORDERED: Sodium Chloride 0.9% 1,000 ML IV STA ×2 (14:38→14:48)
[2018-02-20 14:40] LABS: URINE APPEARANCE SL CLOUDY (CLEAR); URINE COLOR DARK YELLOW (YELLOW)
[2018-02-20 14:43] LABS: URINE BACTERIA LARGE (NEG)
[2018-02-20 14:44] LABS: URINE FINE GRANULAR CAST 0 - 2 /hpf (0-2)
[2018-02-20 14:45] LABS: URINE AMORPHOUS SEDIMENT MODERATE; URINE COARSE GRANULAR CAST TRACE /hpf (0-2)
[2018-02-20] MEDS ORDERED: NOREPINEPHRINE BIT/0.9 % NACL 4 MG/250 ML BAG IV ONE (14:46)
[2018-02-20 14:48] LABS: BARBITURATES, UR NEGATIVE (NEGATIVE); BENZODIAZEPINES, UR NEGATIVE (NEGATIVE); OPIATES, UR POSITIVE (NEGATIVE); PHENCYCLIDINE, UR NEGATIVE (NEGATIVE)
[2018-02-20] MEDS: Fentanyl 1000mcg/100ml NS 1,000 MCG/100 ML BAG IV PRN (14:57)
[2018-02-20] MEDS ORDERED: Digoxin 500 mcg/2ml (0.5 mg/2ml) Inj ONE (15:09)
[2018-02-20] MEDS ORDERED: Digoxin 500 mcg/2ml (0.5 mg/2ml) Inj IVP ONE ×2 (15:14→15:32)
[2018-02-20] MEDS: Midazolam 100 mg/100ml in NS 100 MG/100 ML SOL IV PRN (15:15)
[2018-02-20] MEDS: NOREPINEPHRINE BIT/0.9 % NACL 4 MG/250 ML BAG IV PRN ×2 (15:30→21:23)
[2018-02-20 15:55] LABS: VENOUS BLOOD GAS BASE EXCESS -10.4 mmol/L (0.0-2.0); VENOUS BLOOD GAS PO2 163 mm/Hg (30-55); VENOUS BLOOD PH 7.26 (7.32-7.43)
[2018-02-20] MEDS: Levalbuterol 0.63 MG/3 ML Inhal Soln UD IH SCH ×3 (15:56→23:55)
--- NOTE | 2018-02-20 16:02 | CARD ---
APPROVED REPORT EKG Measurement Heart [id number] <Conclusion> Atrial fibrillation with rapid ventricular response PRWP NSSTW changes
[2018-02-20] MEDS: Cisatracurium Besylate 100 MG in Sodium Chloride 0.9% 250 ML IV PRN (16:11)
--- NOTE | 2018-02-20 16:24 | CP.PCM.HP ---
<Mario Aiken - Last Filed: 02/20/18 16:47> History of Present Illness - History of Present Illness History of Present Illness: 53 year old female with a past medical history of lung cancer, uterine cancer, and asthma who came in today complaining of upper respiratory symptoms. She was reporting feeling subjective fevers at home along with a cough and feeling sick per EMR review. By the time the patient was seen in the emergency department she was intubated for airway protection. ROS was unable to be obtained due to intubation status. Past medical history: lung cancer, uterine cancer, asthma Medications: Will call next of kin Daughter and verify home medications Past surgical history: Will verify with next of kin. Allergies: No known allergies Present on Admission - Present on Admission Any Indicators Present on Admission: No Review of Systems - Review of Systems Systems not reviewed;Unavailable: Intubated Past Patient History - Past Medical History & Family History Past Medical History?: Yes - Past Social History Smoking Status: Current Some Days Smoker - CARDIAC Hx Cardiac Disorders: No - PULMONARY Hx Respiratory Disorders: Yes Hx Asthma: Yes Hx Chronic Obstructive Pulmonary Disease (COPD): Yes Hx Lung Cancer: Yes - NEUROLOGICAL Hx Neurological Disorder: No - HEENT Hx HEENT Problems: No - RENAL Hx Chronic Kidney Disease: No - ENDOCRINE/METABOLIC Hx Endocrine Disorders: No - HEMATOLOGICAL/ONCOLOGICAL Hx Blood Disorders: Yes Hx Cancer: Yes Hx Hepatitis B: Yes Hx Hepatitis C: Yes Other/Comment: MRSA abcess on back - INTEGUMENTARY Hx Dermatological Problems: No - MUSCULOSKELETAL/RHEUMATOLOGICAL Hx Musculoskeletal Disorders: No - GASTROINTESTINAL Hx Gastrointestinal Disorders: Yes Hx Gastroesophageal Reflux: Yes - GENITOURINARY/GYNECOLOGICAL Hx Genitourinary Disorders: No - PSYCHIATRIC Hx Psychophysiologic Disorder: Yes Hx Depression: Yes - SURGICAL HISTORY Hx Section: Yes Hx Hysterectomy: Yes Hx Vascular Access Device: Yes (SRI CATH INSERTION X 2 & REMOVAL ) Other/Comment: SPLEENECTOMY 2009 - ANESTHESIA Hx Anesthesia: Yes Hx Anesthesia Reactions: No Hx Malignant Hyperthermia: No Meds Allergies/Adverse Reactions: Allergies Allergy/AdvReac Type Severity Reaction Status Date / Time No Known Allergies Allergy Verified 02/20/18 19:21 Physical Exam - Head Exam Head Exam: ATRAUMATIC, NORMAL INSPECTION, NORMOCEPHALIC - Eye Exam Eye Exam: EOMI, Normal appearance, PERRL Pupil Exam: NORMAL ACCOMODATION - ENT Exam ENT Exam: Mucous Membranes Moist, Normal Oropharynx - Respiratory Exam Respiratory Exam: Decreased Breath Sounds - Cardiovascular Exam Cardiovascular Exam: REGULAR RHYTHM, +S1, +S2 - GI/Abdominal Exam GI & Abdominal Exam: Normal Bowel Sounds, Soft Additional comments: Levido reticularis diffuse but improving in the abdomen. - Extremities Exam Extremities exam: Positive for: normal inspection. Negative for: full ROM, pedal edema - Back Exam Back exam: NORMAL INSPECTION. absent: CVA tenderness (R), paraspinal tenderness - Neurological Exam Neurological exam: Alert, CN II-XII Intact, Oriented x3 - Psychiatric Exam Psychiatric exam: Normal Affect, Normal Mood - Skin Skin Exam: Dry Additional comments: Levido reticularis Results - Vital Signs Recent Vital Signs: Last Vital Signs Temp 97.9 F 02/20/18 12:55 Pulse 155 H 02/20/18 14:37 Resp 36 H 02/20/18 15:55 BP 100/47 L 02/20/18 16:11 Pulse Ox 95 02/20/18 15:55 - Labs Result Diagrams: 02/20/18 11:30 02/20/18 11:30 Labs: Laboratory Results - last 24 hr 02/20/18 02/20/18 02/20/18 13:45 14:15 14:15 pCO2 33 L pO2 59.0 L HCO3 15.2 L ABG pH 7.27 L ABG Total CO2 16.2 L ABG O2 Saturation 89.9 L ABG Base Excess -10.6 L ABG Potassium 3.0 L VBG pH VBG pCO2 VBG HCO3 VBG Total CO2 VBG O2 Sat (Calc) VBG Base Excess VBG Potassium Sodium 136.0 Chloride 104.0 Glucose 88 Lactate 5.4 H* Mechanical Rate 16 FiO2 100.0 Tidal Volume 400 PEEP 10 GGT Arterial Blood Potassium 3.0 L Venous Blood Potassium Urine Color Dark yellow Urine Appearance Sl cloudy Urine pH 6.0 Ur Specific Kane 1.020 Urine Protein 100 H Urine Glucose (UA) 100 H Urine Ketones Negative Urine Blood Negative Urine Nitrate Negative Urine Bilirubin Moderate H Urine Urobilinogen 2.0 H Ur Leukocyte Esterase Trace H Urine RBC 1 - 3 Urine WBC 10 - 15 Ur Epithelial Cells 6 - 8 Amorphous Sediment Moderate Urine Bacteria Large Fine Granular Casts 0 - 2 Coarse Granular Casts Trace H Urine Other Uyeast Urine HCG, Qual Negative Urine Opiates Screen Positive H Urine Methadone Screen Negative Ur Barbiturates Screen Negative Ur Phencyclidine Scrn Negative Ur Amphetamines Screen Negative U Benzodiazepines Scrn Negative U Oth Cocaine Metabols Negative U Cannabinoids Screen Negative 02/20/18 02/20/18 14:15 15:47 pCO2 pO2 163 H HCO3 ABG pH ABG Total CO2 ABG O2 Saturation ABG Base Excess ABG Potassium VBG pH 7.26 L VBG pCO2 35.0 L VBG HCO3 15.7 L VBG Total CO2 16.8 L VBG O2 Sat (Calc) 99.9 H VBG Base Excess -10.4 L VBG Potassium 3.1 L Sodium 136.0 Chloride 105.0 Glucose 93 Lactate 4.7 H* Mechanical Rate FiO2 21.0 Tidal Volume PEEP GGT 85 H Arterial Blood Potassium Venous Blood Potassium 3.1 L Urine Color Urine Appearance Urine pH Ur Specific Kane Urine Protein Urine Glucose (UA) Urine Ketones Urine Blood Urine Nitrate Urine Bilirubin Urine Urobilinogen Ur Leukocyte Esterase Urine RBC Urine WBC Ur Epithelial Cells Amorphous Sediment Urine Bacteria Fine Granular Casts Coarse Granular Casts Urine Other Urine HCG, Qual Urine Opiates Screen Urine Methadone Screen Ur Barbiturates Screen Ur Phencyclidine Scrn Ur Amphetamines Screen U Benzodiazepines Scrn U Oth Cocaine Metabols U Cannabinoids Screen Assessment & Plan - Assessment and Plan (Free Text) Assessment: 53 year old female with a past medical history of lung cancer, uterine cancer and asthma who was admitted to the hospital with uri symptoms. Patient be came hypoxic in the emergency room and was intubated for airway protection. Plan: 1. Sepsis 2/2 to ?Pneumonia -Intubated in the ICU for airway protection. Drips: Nimbex, Norepinephrine, Propofol, and Midazolam -Chest xray: mass like consolidation in the right lung more dense in upper pole. Findings could represent pneumonia or neoplasm. correlation with CT scan with iv contrast is recommended for further evaluation -Patient received Zosyn and Vancomycin in the emergency room. -Procalcitonin. Will f/u with results. -CRP. Will f/u with results. -Legionella -Strep pneumoniae. Will f/u with results. -Blood cultures. Will f/u with results. -Sputum cultures. Will f/u with results. -Vancomycin -Doxycycline -Zosyn -Infectious Disease consulted. Help appreciated. -Will continue to monitor. 2. Afib with RVR -EKG showed Atrial fibrillation with RVR @180bpm -Cardizem drip started. -Cardiology consulted. Will f/u with results. 3.Transaminitis -AST 131 -ALT-58 -Abdominal ultrasound ordered. Will f/u with results. -Hepatitis panel ordered .Will f/u with results. -GI consulted. Help appreciated. 4. Elevation of BNP -BNP 6280 -Troponin ordered. Will f/u with results. -Echo ordered. Will f/u with results. -Cardiology consulted. Help appreciated 5. Thrombocytopenia -Platelet count 83 upon admission. -No active source of bleeding at this time. -Will continue to monitor. 6. Hypokalemia -K 3.3 upon admission. -Repleted. -Will monitor with serial CMP's. Ppx -Protonix -Lovenox Disposition: Placed call to next of kin daughter with no answer. Will attempt to reach again. Plan discussed with Attending Dr. Mady Aiken, PGY-1 <Neftaly Earl - Last Filed: 02/21/18 14:51> History of Present Illness - History of Present Illness History of Present Illness: CC: Difficulty breathing per chart - patient non verbal intubated Results - Vital Signs Recent Vital Signs: Last Vital Signs Temp 98.1 F 02/21/18 12:00 Pulse 73 02/21/18 13:00 Resp 35 H 02/21/18 12:00 BP 127/55 L 02/21/18 13:52 Pulse Ox 92 L 02/21/18 13:00 - Labs Result Diagrams: 02/21/18 11:00 02/21/18 08:30 Labs: Laboratory Results - last 24 hr 02/20/18 02/20/18 02/20/18 14:15 15:47 15:47 WBC RBC Hgb Hct MCV MCH MCHC RDW Plt Count MPV Gran % Lymph % (Auto) Thur[place] % (Auto) Eos % (Auto) Baso % (Auto) Gran # Lymph # (Auto) [place] # (Auto) Eos # (Auto) Baso # (Auto) APTT Fibrinogen pCO2 pO2 HCO3 ABG pH ABG Total CO2 ABG O2 Saturation ABG O2 Content ABG Base Excess ABG Hemoglobin ABG Carboxyhemoglobin POC ABG HHb (Measured) ABG Methemoglobin ABG O2 Capacity ABG Potassium VBG pH VBG pCO2 VBG HCO3 VBG Total CO2 VBG O2 Sat (Calc) VBG Base Excess VBG Potassium Hgb O2 Saturation Sodium Chloride Glucose Lactate Mechanical Rate FiO2 Tidal Volume PEEP Potassium Carbon Dioxide Anion Gap BUN Creatinine Est GFR ( Amer) Est GFR (Non-Af Amer) POC Glucose (mg/dL) Random Glucose Calcium Phosphorus Magnesium Total Bilirubin AST ALT Alkaline Phosphatase Total Creatine Kinase CK-MB (CK-2) CK-MB (CK-2) % Troponin I C-Reactive Protein 236.80 H Total Protein Albumin Globulin Albumin/Globulin Ratio Procalcitonin 17.09 H Arterial Blood Potassium Venous Blood Potassium Urine Opiates Screen Positive H Ur Barbiturates Screen Negative Ur Phencyclidine Scrn Negative U Benzodiazepines Scrn Negative U Oth Cocaine Metabols Negative U Cannabinoids Screen Negative Hepatitis A IgM Ab Hep Bs Antigen Hep B Core IgM Ab Hepatitis C Antibody Blood Type Blood Type Confirm Antibody Screen Crossmatch BBK History Checked 02/20/18 02/20/18 02/20/18 15:47 15:47 16:50 WBC RBC Hgb Hct MCV MCH MCHC RDW Plt Count MPV Gran % Lymph % (Auto) Thurston % (Auto) Eos % (Auto) Baso % (Auto) Gran # Lymph # (Auto) Thur[place] # (Auto) Eos # (Auto) Baso # (Auto) APTT Fibrinogen pCO2 58 H pO2 163 H 74.0 L HCO3 17.2 L ABG pH 7.08 L* ABG Total CO2 19.0 L ABG O2 Saturation 92.1 L ABG O2 Content ABG Base Excess -13.2 L ABG Hemoglobin ABG Carboxyhemoglobin POC ABG HHb (Measured) ABG Methemoglobin ABG O2 Capacity ABG Potassium 3.3 L VBG pH 7.26 L VBG pCO2 35.0 L VBG HCO3 15.7 L VBG Total CO2 16.8 L VBG O2 Sat (Calc) 99.9 H VBG Base Excess -10.4 L VBG Potassium 3.1 L Hgb O2 Saturation Sodium 136.0 137.0 Chloride 105.0 106.0 Glucose 93 135 H Lactate 4.7 H* 3.4 H Mechanical Rate 30 FiO2 21.0 100.0 Tidal Volume 300 PEEP 16 Potassium Carbon Dioxide Anion Gap BUN Creatinine Est GFR ( Amer) Est GFR (Non-Af Amer) POC Glucose (mg/dL) Random Glucose Calcium Phosphorus Magnesium Total Bilirubin AST ALT Alkaline Phosphatase Total Creatine Kinase CK-MB (CK-2) CK-MB (CK-2) % Troponin I C-Reactive Protein Total Protein Albumin Globulin Albumin/Globulin Ratio Procalcitonin Arterial Blood Potassium 3.3 L Venous Blood Potassium 3.1 L Urine Opiates Screen Ur Barbiturates Screen Ur Phencyclidine Scrn U Benzodiazepines Scrn U Oth Cocaine Metabols U Cannabinoids Screen Hepatitis A IgM Ab Negative Hep Bs Antigen Negative Hep B Core IgM Ab Negative Hepatitis C Antibody Reactive Blood Type Blood Type Confirm Antibody Screen Crossmatch BBK History Checked 02/20/18 02/20/18 02/20/18 17:48 17:48 18:50 WBC 25.1 H* D RBC 3.74 Hgb 13.3 Hct 34.9 L MCV 93.3 MCH 35.6 H MCHC 38.1 H RDW 13.2 Plt Count 80 L MPV 12.2 H Gran % 95.0 H Lymph % (Auto) 3.4 L Thurston % (Auto) 1.4 Eos % (Auto) 0.0 L Baso % (Auto) 0.2 Gran # 23.84 H Lymph # (Auto) 0.8 L [place] # (Auto) 0.4 Eos # (Auto) 0.0 Baso # (Auto) 0.04 APTT Fibrinogen pCO2 49 H pO2 78.0 L HCO3 15.9 L ABG pH 7.12 L* ABG Total CO2 17.4 L ABG O2 Saturation 93.7 L ABG O2 Content ABG Base Excess -13.4 L ABG Hemoglobin ABG Carboxyhemoglobin POC ABG HHb (Measured) ABG Methemoglobin ABG O2 Capacity ABG Potassium 4.1 VBG pH VBG pCO2 VBG HCO3 VBG Total CO2 VBG O2 Sat (Calc) VBG Base Excess VBG Potassium Hgb O2 Saturation Sodium 140 135.0 Chloride 104 103.0 Glucose 244 H Lactate 3.8 H Mechanical Rate 35 FiO2 100.0 Tidal Volume 350 PEEP 16 Potassium 4.0 Carbon Dioxide 16 L Anion Gap 24 H BUN 58 H Creatinine 0.8 Est GFR ( Amer) > 60 Est GFR (Non-Af Amer) > 60 POC Glucose (mg/dL) Random Glucose 154 H Calcium 6.7 L* Phosphorus Magnesium Total Bilirubin 3.4 H AST 98 H D ALT 52 Alkaline Phosphatase 24 L D Total Creatine Kinase CK-MB (CK-2) CK-MB (CK-2) % Troponin I 0.06 C-Reactive Protein Total Protein 5.6 L Albumin 2.5 L Globulin 3.0 Albumin/Globulin Ratio 0.8 L Procalcitonin Arterial Blood Potassium 4.1 Venous Blood Potassium Urine Opiates Screen Ur Barbiturates Screen Ur Phencyclidine Scrn U Benzodiazepines Scrn U Oth Cocaine Metabols U Cannabinoids Screen Hepatitis A IgM Ab Hep Bs Antigen Hep B Core IgM Ab Hepatitis C Antibody Blood Type Blood Type Confirm Antibody Screen Crossmatch BBK History Checked 02/20/18 02/20/18 02/21/18 22:16 23:15 03:10 WBC RBC Hgb Hct MCV MCH MCHC RDW Plt Count MPV Gran % Lymph % (Auto) Thurston % (Auto) Eos % (Auto) Baso % (Auto) Gran # Lymph # (Auto) Thur[place] # (Auto) Eos # (Auto) Baso # (Auto) APTT Fibrinogen pCO2 49 H pO2 91.0 55 HCO3 16.7 L ABG pH 7.14 L* ABG Total CO2 18.2 L ABG O2 Saturation 97.8 ABG O2 Content ABG Base Excess -12.3 L ABG Hemoglobin ABG Carboxyhemoglobin POC ABG HHb (Measured) ABG Methemoglobin ABG O2 Capacity ABG Potassium 3.4 L VBG pH 7.13 L* VBG pCO2 59.0 VBG HCO3 19.6 L VBG Total CO2 21.4 L VBG O2 Sat (Calc) 86.1 H VBG Base Excess -10.1 L VBG Potassium 4.3 Hgb O2 Saturation Sodium 138.0 134.0 Chloride 104.0 101.0 Glucose 309 H 367 H Lactate 2.9 H 3.1 H Mechanical Rate FiO2 100.0 21.0 Tidal Volume PEEP Potassium Carbon Dioxide Anion Gap BUN Creatinine Est GFR ( Amer) Est GFR (Non-Af Amer) POC Glucose (mg/dL) 310 H Random Glucose Calcium Phosphorus Magnesium Total Bilirubin AST ALT Alkaline Phosphatase Total Creatine Kinase CK-MB (CK-2) CK-MB (CK-2) % Troponin I C-Reactive Protein Total Protein Albumin Globulin Albumin/Globulin Ratio Procalcitonin Arterial Blood Potassium 3.4 L Venous Blood Potassium 4.3 Urine Opiates Screen Ur Barbiturates Screen Ur Phencyclidine Scrn U Benzodiazepines Scrn U Oth Cocaine Metabols U Cannabinoids Screen Hepatitis A IgM Ab Hep Bs Antigen Hep B Core IgM Ab Hepatitis C Antibody Blood Type Blood Type Confirm Antibody Screen Crossmatch BBK History Checked 02/21/18 02/21/18 02/21/18 04:10 06:30 07:00 WBC RBC Hgb Hct MCV MCH MCHC RDW Plt Count MPV Gran % Lymph % (Auto) Thur[place] % (Auto) Eos % (Auto) Baso % (Auto) Gran # Lymph # (Auto) [place] # (Auto) Eos # (Auto) Baso # (Auto) APTT Fibrinogen 476 H pCO2 48 H pO2 126.0 H HCO3 20.1 L ABG pH 7.23 L ABG Total CO2 21.6 L ABG O2 Saturation 99.6 H ABG O2 Content 15.0 ABG Base Excess -7.3 L ABG Hemoglobin 10.8 L ABG Carboxyhemoglobin 1.1 POC ABG HHb (Measured) 0.4 ABG Methemoglobin 1.3 ABG O2 Capacity 15.1 L ABG Potassium VBG pH VBG pCO2 VBG HCO3 VBG Total CO2 VBG O2 Sat (Calc) VBG Base Excess VBG Potassium Hgb O2 Saturation 97.2 Sodium Chloride Glucose Lactate Mechanical Rate FiO2 100.0 Tidal Volume PEEP Potassium Carbon Dioxide Anion Gap BUN Creatinine Est GFR ( Amer) Est GFR (Non-Af Amer) POC Glucose (mg/dL) Random Glucose Calcium Phosphorus Magnesium Total Bilirubin AST ALT Alkaline Phosphatase Total Creatine Kinase 6894 H CK-MB (CK-2) 54.4 H CK-MB (CK-2) % 0.8 L Troponin I C-Reactive Protein Total Protein Albumin Globulin Albumin/Globulin Ratio Procalcitonin Arterial Blood Potassium Venous Blood Potassium Urine Opiates Screen Ur Barbiturates Screen Ur Phencyclidine Scrn U Benzodiazepines Scrn U Oth Cocaine Metabols U Cannabinoids Screen Hepatitis A IgM Ab Hep Bs Antigen Hep B Core IgM Ab Hepatitis C Antibody Blood Type Blood Type Confirm Antibody Screen Crossmatch BBK History Checked 02/21/18 02/21/18 02/21/18 08:30 08:30 08:30 WBC 23.7 H RBC 2.87 L Hgb 10.1 L D Hct 27.5 L MCV 95.8 MCH 35.2 H MCHC 36.7 RDW 14.1 Plt Count 83 L MPV 12.3 H Gran % 93.8 H Lymph % (Auto) 2.8 L [place] % (Auto) 3.3 Eos % (Auto) 0.0 L Baso % (Auto) 0.1 Gran # 22.26 H Lymph # (Auto) 0.7 L [place] # (Auto) 0.8 H Eos # (Auto) 0.0 Baso # (Auto) 0.02 APTT Fibrinogen pCO2 pO2 HCO3 ABG pH ABG Total CO2 ABG O2 Saturation ABG O2 Content ABG Base Excess ABG Hemoglobin ABG Carboxyhemoglobin POC ABG HHb (Measured) ABG Methemoglobin ABG O2 Capacity ABG Potassium VBG pH VBG pCO2 VBG HCO3 VBG Total CO2 VBG O2 Sat (Calc) VBG Base Excess VBG Potassium Hgb O2 Saturation Sodium 143 Chloride 105 Glucose Lactate Mechanical Rate FiO2 Tidal Volume PEEP Potassium 4.7 Carbon Dioxide 15 L Anion Gap 28 H BUN 80 H Creatinine 2.5 H Est GFR ( Amer) 25 Est GFR (Non-Af Amer) 20 POC Glucose (mg/dL) Random Glucose 292 H Calcium 5.6 L* Phosphorus 8.2 H Magnesium 2.6 H Total Bilirubin 3.2 H AST 387 H D ALT 96 H Alkaline Phosphatase 135 H D Total Creatine Kinase CK-MB (CK-2) CK-MB (CK-2) % Troponin I C-Reactive Protein Total Protein 4.3 L Albumin 1.8 L Globulin 2.5 Albumin/Globulin Ratio 0.7 L Procalcitonin Arterial Blood Potassium Venous Blood Potassium Urine Opiates Screen Ur Barbiturates Screen Ur Phencyclidine Scrn U Benzodiazepines Scrn U Oth Cocaine Metabols U Cannabinoids Screen Hepatitis A IgM Ab Hep Bs Antigen Hep B Core IgM Ab Hepatitis C Antibody Blood Type B POSITIVE Blood Type Confirm Antibody Screen Negative Crossmatch See Detail BBK History Checked No verified bt 02/21/18 02/21/18 02/21/18 08:50 11:00 13:00 WBC 23.2 H RBC 2.64 L Hgb 9.2 L Hct 26.1 L MCV 98.9 D MCH 34.8 MCHC 35.2 RDW 14.6 H Plt Count 79 L MPV 12.3 H Gran % 90.6 H Lymph % (Auto) 4.3 L [place] % (Auto) 5.0 Eos % (Auto) 0.0 L Baso % (Auto) 0.1 Gran # 21.00 H Lymph # (Auto) 1.0 L [place] # (Auto) 1.2 H Eos # (Auto) 0.0 Baso # (Auto) 0.02 APTT Fibrinogen pCO2 44 pO2 80.0 HCO3 ABG pH < 6.80 L* ABG Total CO2 ABG O2 Saturation 92.8 L ABG O2 Content 9.0 L ABG Base Excess ABG Hemoglobin 6.9 L ABG Carboxyhemoglobin 1.3 POC ABG HHb (Measured) 7.1 H ABG Methemoglobin 0.7 ABG O2 Capacity 9.7 L ABG Potassium VBG pH VBG pCO2 VBG HCO3 VBG Total CO2 VBG O2 Sat (Calc) VBG Base Excess VBG Potassium Hgb O2 Saturation 90.9 L Sodium Chloride Glucose Lactate Mechanical Rate FiO2 80.0 Tidal Volume PEEP Potassium Carbon Dioxide Anion Gap BUN Creatinine Est GFR ( Amer) Est GFR (Non-Af Amer) POC Glucose (mg/dL) Random Glucose Calcium Phosphorus Magnesium Total Bilirubin AST ALT Alkaline Phosphatase Total Creatine Kinase CK-MB (CK-2) CK-MB (CK-2) % Troponin I C-Reactive Protein Total Protein Albumin Globulin Albumin/Globulin Ratio Procalcitonin Arterial Blood Potassium Venous Blood Potassium Urine Opiates Screen Ur Barbiturates Screen Ur Phencyclidine Scrn U Benzodiazepines Scrn U Oth Cocaine Metabols U Cannabinoids Screen Hepatitis A IgM Ab Hep Bs Antigen Hep B Core IgM Ab Hepatitis C Antibody Blood Type Blood Type Confirm B POSITIVE Antibody Screen Crossmatch BBK History Checked 02/21/18 02/21/18 13:20 13:30 WBC RBC Hgb Hct MCV MCH MCHC RDW Plt Count MPV Gran % Lymph % (Auto) [place] % (Auto) Eos % (Auto) Baso % (Auto) Gran # Lymph # (Auto) [place] # (Auto) Eos # (Auto) Baso # (Auto) APTT 67.0 H Fibrinogen pCO2 45 pO2 79.0 L HCO3 ABG pH < 6.80 L* ABG Total CO2 ABG O2 Saturation 91.7 L ABG O2 Content ABG Base Excess ABG Hemoglobin ABG Carboxyhemoglobin POC ABG HHb (Measured) ABG Methemoglobin ABG O2 Capacity ABG Potassium 5.7 H VBG pH VBG pCO2 VBG HCO3 VBG Total CO2 VBG O2 Sat (Calc) VBG Base Excess VBG Potassium Hgb O2 Saturation Sodium 137.0 Chloride 106.0 Glucose 176 H Lactate 12.7 H* Mechanical Rate 35 FiO2 80.0 Tidal Volume 350 PEEP 16 Potassium Carbon Dioxide Anion Gap BUN Creatinine Est GFR ( Amer) Est GFR (Non-Af Amer) POC Glucose (mg/dL) Random Glucose Calcium Phosphorus Magnesium Total Bilirubin AST ALT Alkaline Phosphatase Total Creatine Kinase CK-MB (CK-2) CK-MB (CK-2) % Troponin I C-Reactive Protein Total Protein Albumin Globulin Albumin/Globulin Ratio Procalcitonin Arterial Blood Potassium 5.7 H Venous Blood Potassium Urine Opiates Screen Ur Barbiturates Screen Ur Phencyclidine Scrn U Benzodiazepines Scrn U Oth Cocaine Metabols U Cannabinoids Screen Hepatitis A IgM Ab Hep Bs Antigen Hep B Core IgM Ab Hepatitis C Antibody Blood Type Blood Type Confirm Antibody Screen Crossmatch BBK History Checked Attending/Attestation - Attestation I have personally seen and examined this patient.: Yes I have fully participated in the care of the patient.: Yes I have reviewed all pertinent clinical information: Yes Notes (Text): poor prognosis on perssors cont ICU care hypoxic lung mets pneumonia afib with rvr intubated
[2018-02-20 17:04] LABS: ARTERIAL BLOOD GAS HCO3 17.2 mmol/L (21-28); ARTERIAL BLOOD GAS O2 SAT 92.1 % (95-98); ARTERIAL BLOOD GAS PCO2 58 mm/Hg (35-45)
[2018-02-20 17:05] LABS: ARTERIAL BLOOD GAS PH 7.08 (7.35-7.45)
[2018-02-20] MEDS: Dextrose 5%/0.9% NS 1,000 ML IV SCH (17:36)
[2018-02-20] MEDS: Linezolid 600 mg in D5W 300 ml 600 MG/300 ML BAG IVPB SCH (17:40)
[2018-02-20 17:52] LABS: BASO # 0.04 K/mm3 (0.0-2.0); BASO % 0.2 % (0.0-3.0); GRAN # 23.84 (1.4-6.5); HEMOGLOBIN 13.3 g/dL (12.0-16.0); LYMPH # 0.8 (1.2-3.4); LYMPH % 3.4 % (22.0-35.0); MEAN CELL VOLUME 93.3 fl (80.0-105.0); MEAN CORPUSCULAR HEMOGLOBIN 35.6 pg (25.0-35.0); MEAN CORPUSCULAR HGB CONC 38.1 g/dl (31.0-37.0); MEAN PLATELET VOLUME 12.2 fl (7.0-11.0); MONO # 0.4 (0.1-0.6); MONO % 1.4 % (1.0-6.0); RBC 3.74 10^6/uL (3.5-6.1); RED CELL DISTRIBUTION WIDTH 13.2 % (11.5-14.5)
[2018-02-20] MEDS ORDERED: Piperacillin/Tazobact 3.375 gm 100 ML IVPB SCH (18:00)
[2018-02-20 18:08] LABS: WHITE BLOOD COUNT 25.1 10^3/ul (4.5-11.0)
[2018-02-20 18:12] LABS: TROPONIN I 0.06 ng/mL
[2018-02-20 18:16] LABS: ALB/GLOB RATIO 0.8 (1.1-1.8); ALBUMIN 2.5 g/dL (3.0-4.8); ALT/SGPT 52 U/L (7-56); AST/SGOT 98 U/L (14-36); BLOOD UREA NITROGEN 58 mg/dL (7-21); CALCIUM 6.7 mg/dL (8.4-10.5); GFR AFRICAN-AMERICAN > 60; GFR NON-AFRICAN AMERICAN > 60
--- NOTE | 2018-02-20 18:35 | CARD ---
APPROVED REPORT EXAM: Two-dimensional and M-mode echocardiogram with Doppler and color Doppler. INDICATION 2D DIMENSIONS IVSd1.0 (0.7-1.1cm)LVDd3.4 (3.9-5.9cm) PWd1.0 (0.7-1.1cm)LVDs3.0 (2.5-4.0cm) FS (%) 9.6 %LVEF (%)55.1 (>50%) M-Mode DIMENSIONS Left Atrium (MM)3.40 (2.5-4.0cm)Aortic Root3.10 (2.2-3.7cm) Aortic Cusp Exc.2.00 (1.5-2.0cm) Aortic Valve AoV Peak [id number]/Marilee Peak GR.17mmHg Mitral Valve MV E Lgrmezaf56.0cm/sE/A ratio0.0 TDI Lateral E' Peak V20.30cm/sMedial E' Peak V9.80cm/sE/Lateral E'3.9 E/Medial E'8.2 Tricuspid Valve TR Peak [id number] [id number] Peak Gr.50mmHg [id number] LEFT VENTRICLE The left ventricle is normal size. There is normal left ventricular wall thickness. The left ventricular function is normal. The left ventricular ejection fraction is within the normal range. There is normal LV segmental wall motion. RIGHT VENTRICLE The right ventricle is normal size. The right ventricular systolic function is normal. ATRIA The left atrium size is normal. The right atrium size is normal. The interatrial septum is intact with no evidence for an atrial septal defect. AORTIC VALVE The aortic valve is normal in structure. No aortic regurgitation is present. There is no aortic valvular stenosis. MITRAL VALVE The mitral valve is normal in structure. There is no mitral valve regurgitation noted. TRICUSPID VALVE The tricuspid valve is normal in structure. There is mild tricuspid regurgitation. GREAT VESSELS The aortic root is normal in size. The IVC is normal in size and collapses >50% with inspiration. PERICARDIAL EFFUSION There is no pleural effusion. There is no pericardial effusion. <Conclusion> Technically difficult study. Patient intubated and supine. Chamber sizes appear grossly normal. LV systolic function is normal. Tachycardia present. Mild tricuspid regurgitation. No other significant valvular abnormalities noted.
--- NOTE | 2018-02-20 18:48 | CP.PCM.CON ---
<Jaleel Ortiz - Last Filed: 02/20/18 18:35> History of Present Illness - History of Present Illness History of Present Illness: Critical Care consult note: Dr. Rubin Reason For Consult: Severe Sepsis HPI: 53 year old female with pertinent medical history of lung cancer, uterine cancer and asthma presented with shortness of breath and URI symptoms. Patient became hypoxic in ER and needed intubation. Upon my interview, ROS and history were difficult to obtain; most of the information retrieved via chart review. Review of Systems: 12 point ROS elicited but unobtainable right now Past Surgical History: Unobtainable right now Past Medical History: Lung CA, Uterine CA, Asthma Allergies: NKDA Social History: Unobtainable Home Meds: Need to verify with family Family History: Unobtainable right now Past Patient History - Past Medical History & Family History Past Medical History?: Yes - Past Social History Smoking Status: Current Some Days Smoker - CARDIAC Hx Cardiac Disorders: No - PULMONARY Hx Respiratory Disorders: Yes Hx Asthma: Yes Hx Chronic Obstructive Pulmonary Disease (COPD): Yes Hx Lung Cancer: Yes - NEUROLOGICAL Hx Neurological Disorder: No - HEENT Hx HEENT Problems: No - RENAL Hx Chronic Kidney Disease: No - ENDOCRINE/METABOLIC Hx Endocrine Disorders: No - HEMATOLOGICAL/ONCOLOGICAL Hx Blood Disorders: Yes Hx Cancer: Yes Hx Hepatitis B: Yes Hx Hepatitis C: Yes Other/Comment: MRSA abcess on back - INTEGUMENTARY Hx Dermatological Problems: No - MUSCULOSKELETAL/RHEUMATOLOGICAL Hx Musculoskeletal Disorders: No - GASTROINTESTINAL Hx Gastrointestinal Disorders: Yes Hx Gastroesophageal Reflux: Yes - GENITOURINARY/GYNECOLOGICAL Hx Genitourinary Disorders: No - PSYCHIATRIC Hx Psychophysiologic Disorder: Yes Hx Depression: Yes - SURGICAL HISTORY Hx Section: Yes Hx Hysterectomy: Yes Hx Vascular Access Device: Yes (SRI CATH INSERTION X 2 & REMOVAL ) Other/Comment: SPLEENECTOMY 2009 - ANESTHESIA Hx Anesthesia: Yes Hx Anesthesia Reactions: No Hx Malignant Hyperthermia: No Meds Allergies/Adverse Reactions: Allergies Allergy/AdvReac Type Severity Reaction Status Date / Time No Known Allergies Allergy Verified 02/20/18 19:21 - Medications Medications: Current Medications Enoxaparin Sodium (Lovenox) 86 mg SC Q12H LEE ANN PRN Reason: Protocol Hydrocortisone Sodium Succinate (Solu-Cortef) 50 mg IVP Q6 [facility] Last Admin: 02/20/18 17:39 Dose: 50 mg diltiaZEM IVPB 100mg in NS (Cardizem 100mg In Ns) 100 mls @ 5 mls/hr IV .Q20H PRN; Protocol; 5 MG/HR PRN Reason: TITRATE PER MD ORDER Last Admin: 02/20/18 12:33 Dose: 5 mls/hr Propofol (Diprivan) 1,000 mg in 100 mls @ 2.585 mls/hr IV .Q24H PRN; Protocol; 5 MCG/KG/MIN PRN Reason: TITRATE PER MD ORDER Last Admin: 02/20/18 13:33 Dose: 5 mcg/kg/min, 2.585 mls/hr Fentanyl Citrate (Fentanyl Citrate/Sodium Chloride 1 Mg/100 Ml) 1,000 mcg in 100 mls @ 2 mls/hr IV .Q24H PRN; Protocol; 20 MCG/HR PRN Reason: TITRATE PER MD ORDER Last Admin: 02/20/18 14:57 Dose: 20 mcg/hr, 2 mls/hr Doxycycline Hyclate 100 mg/ (Sodium Chloride) 100 mls @ 100 mls/hr IVPB Q12 LEE ANN PRN Reason: Protocol Dextrose/Sodium Chloride (Dextrose 5%/0.9% Ns 1000 Ml) 1,000 mls @ 150 mls/hr IV .Q6H40M [facility] Last Admin: 02/20/18 17:36 Dose: 150 mls/hr Cisatracurium Besylate 100 mg/ (Sodium Chloride) 260 mls @ 13.44 mls/hr IV .[id number] PRN; Protocol; 1 MCG/KG/MIN PRN Reason: TITRATE PER MD ORDER Last Titration: 02/20/18 17:54 Dose: 1 mcg/kg/min, 13.44 mls/hr Midazolam 100 mg/100ml in NS (Midazolam 100 Mg/100ml In Ns) 100 mg in 100 mls @ 1 mls/hr IV .Q24H PRN; Protocol; 1 MG/HR PRN Reason: Sedation Last Titration: 02/20/18 15:20 Dose: 5 mg/hr, 5 mls/hr NOREPINEPHRINE BIT/0.9 % NACL (Levophed 4 Mg/ 250 Ml Ns Premixed) 4 mg in 250 mls @ 15 mls/hr IV .[id number] PRN; Protocol; 4 MCG/MIN PRN Reason: TITRATE PER MD ORDER Last Admin: 02/20/18 15:30 Dose: 4 mcg/min, 15 mls/hr Vasopressin 20 units/ Sodium (Chloride) 101 mls @ 9.09 mls/hr IV .Q11H7M LEE ANN; 0.03 U/MIN PRN Reason: Protocol Last Admin: 02/20/18 16:11 Dose: 9.09 mls/hr Meropenem (Merrem Iv 1 Gm Premix) 50 mls @ 100 mls/hr IVPB Q12 LEE ANN PRN Reason: Protocol Linezolid (Zyvox 600mg/300ml D5w) 600 mg in 300 mls @ 200 mls/hr IVPB Q12 LEE ANN PRN Reason: Protocol Stop: 02/27/18 16:46 Last Admin: 02/20/18 17:40 Dose: 200 mls/hr Levalbuterol HCl (Xopenex) 0.63 mg IH [id number] LEE ANN Last Admin: 02/20/18 15:56 Dose: Not Given Levalbuterol HCl (Xopenex) 0.63 mg IH Q2 PRN PRN Reason: Wheezing Pantoprazole Sodium (Protonix Inj) 40 mg IVP DAILY [facility] Physical Exam - Constitutional Appears: In Acute Distress, Chronically Ill - Head Exam Head Exam: ATRAUMATIC, NORMAL INSPECTION, NORMOCEPHALIC - Eye Exam Eye Exam: EOMI, Normal appearance, PERRL Pupil Exam: NORMAL ACCOMODATION, PERRL - ENT Exam ENT Exam: Mucous Membranes Moist, Normal Exam - Neck Exam Neck exam: Positive for: Normal Inspection - Respiratory Exam Respiratory Exam: Clear to Auscultation Bilateral, NORMAL BREATHING PATTERN - Cardiovascular Exam Cardiovascular Exam: REGULAR RHYTHM - GI/Abdominal Exam GI & Abdominal Exam: Normal Bowel Sounds, Soft. absent: Tenderness - Extremities Exam Extremities exam: Positive for: normal inspection - Back Exam Back exam: NORMAL INSPECTION - Neurological Exam Neurological exam: Alert, CN II-XII Intact, Normal Gait, Oriented x3, Reflexes Normal - Psychiatric Exam Psychiatric exam: Normal Affect, Normal Mood - Skin Skin Exam: Dry, Intact, Normal Color, Warm Results - Vital Signs Recent Vital Signs: Last Vital Signs Temp 97.9 F 02/20/18 12:55 Pulse 132 H 02/20/18 18:19 Resp 35 H 02/20/18 17:36 BP 104/67 02/20/18 18:20 Pulse Ox 85 L 02/20/18 18:19 - Labs Result Diagrams: 02/20/18 17:48 02/20/18 17:48 Labs: Laboratory Results - last 24 hr 02/20/18 02/20/18 02/20/18 13:45 14:15 14:15 WBC RBC Hgb Hct MCV MCH MCHC RDW Plt Count MPV Gran % Lymph % (Auto) [place] % (Auto) Eos % (Auto) Baso % (Auto) Gran # Lymph # (Auto) [place] # (Auto) Eos # (Auto) Baso # (Auto) pCO2 33 L pO2 59.0 L HCO3 15.2 L ABG pH 7.27 L ABG Total CO2 16.2 L ABG O2 Saturation 89.9 L ABG Base Excess -10.6 L ABG Potassium 3.0 L VBG pH VBG pCO2 VBG HCO3 VBG Total CO2 VBG O2 Sat (Calc) VBG Base Excess VBG Potassium Sodium 136.0 Chloride 104.0 Glucose 88 Lactate 5.4 H* Mechanical Rate 16 FiO2 100.0 Tidal Volume 400 PEEP 10 Potassium Carbon Dioxide Anion Gap BUN Creatinine Est GFR ( Amer) Est GFR (Non-Af Amer) Random Glucose Calcium Total Bilirubin GGT AST ALT Alkaline Phosphatase Troponin I Total Protein Albumin Globulin Albumin/Globulin Ratio Arterial Blood Potassium 3.0 L Venous Blood Potassium Urine Color Dark yellow Urine Appearance Sl cloudy Urine pH 6.0 Ur Specific [place] 1.020 Urine Protein 100 H Urine Glucose (UA) 100 H Urine Ketones Negative Urine Blood Negative Urine Nitrate Negative Urine Bilirubin Moderate H Urine Urobilinogen 2.0 H Ur Leukocyte Esterase Trace H Urine RBC 1 - 3 Urine WBC 10 - 15 Ur Epithelial Cells 6 - 8 Amorphous Sediment Moderate Urine Bacteria Large Fine Granular Casts 0 - 2 Coarse Granular Casts Trace H Urine Other Uyeast Urine HCG, Qual Negative Urine Opiates Screen Positive H Urine Methadone Screen Negative Ur Barbiturates Screen Negative Ur Phencyclidine Scrn Negative Ur Amphetamines Screen Negative U Benzodiazepines Scrn Negative U Oth Cocaine Metabols Negative U Cannabinoids Screen Negative 02/20/18 02/20/18 02/20/18 14:15 15:47 16:50 WBC RBC Hgb Hct MCV MCH MCHC RDW Plt Count MPV Gran % Lymph % (Auto) [place] % (Auto) Eos % (Auto) Baso % (Auto) Gran # Lymph # (Auto) [place] # (Auto) Eos # (Auto) Baso # (Auto) pCO2 58 H pO2 163 H 74.0 L HCO3 17.2 L ABG pH 7.08 L* ABG Total CO2 19.0 L ABG O2 Saturation 92.1 L ABG Base Excess -13.2 L ABG Potassium 3.3 L VBG pH 7.26 L VBG pCO2 35.0 L VBG HCO3 15.7 L VBG Total CO2 16.8 L VBG O2 Sat (Calc) 99.9 H VBG Base Excess -10.4 L VBG Potassium 3.1 L Sodium 136.0 137.0 Chloride 105.0 106.0 Glucose 93 135 H Lactate 4.7 H* 3.4 H Mechanical Rate 30 FiO2 21.0 100.0 Tidal Volume 300 PEEP 16 Potassium Carbon Dioxide Anion Gap BUN Creatinine Est GFR ( Amer) Est GFR (Non-Af Amer) Random Glucose Calcium Total Bilirubin GGT 85 H AST ALT Alkaline Phosphatase Troponin I Total Protein Albumin Globulin Albumin/Globulin Ratio Arterial Blood Potassium 3.3 L Venous Blood Potassium 3.1 L Urine Color Urine Appearance Urine pH Ur Specific [place] Urine Protein Urine Glucose (UA) Urine Ketones Urine Blood Urine Nitrate Urine Bilirubin Urine Urobilinogen Ur Leukocyte Esterase Urine RBC Urine WBC Ur Epithelial Cells Amorphous Sediment Urine Bacteria Fine Granular Casts Coarse Granular Casts Urine Other Urine HCG, Qual Urine Opiates Screen Urine Methadone Screen Ur Barbiturates Screen Ur Phencyclidine Scrn Ur Amphetamines Screen U Benzodiazepines Scrn U Oth Cocaine Metabols U Cannabinoids Screen 02/20/18 02/20/18 17:48 17:48 WBC 25.1 H* D RBC 3.74 Hgb 13.3 Hct 34.9 L MCV 93.3 MCH 35.6 H MCHC 38.1 H RDW 13.2 Plt Count 80 L MPV 12.2 H Gran % 95.0 H Lymph % (Auto) 3.4 L [place] % (Auto) 1.4 Eos % (Auto) 0.0 L Baso % (Auto) 0.2 Gran # 23.84 H Lymph # (Auto) 0.8 L [place] # (Auto) 0.4 Eos # (Auto) 0.0 Baso # (Auto) 0.04 pCO2 pO2 HCO3 ABG pH ABG Total CO2 ABG O2 Saturation ABG Base Excess ABG Potassium VBG pH VBG pCO2 VBG HCO3 VBG Total CO2 VBG O2 Sat (Calc) VBG Base Excess VBG Potassium Sodium 140 Chloride 104 Glucose Lactate Mechanical Rate FiO2 Tidal Volume PEEP Potassium 4.0 Carbon Dioxide 16 L Anion Gap 24 H BUN 58 H Creatinine 0.8 Est GFR ( Amer) > 60 Est GFR (Non-Af Amer) > 60 Random Glucose 154 H Calcium 6.7 L* Total Bilirubin 3.4 H GGT AST 98 H D ALT 52 Alkaline Phosphatase 24 L D Troponin I 0.06 Total Protein 5.6 L Albumin 2.5 L Globulin 3.0 Albumin/Globulin Ratio 0.8 L Arterial Blood Potassium Venous Blood Potassium Urine Color Urine Appearance Urine pH Ur Specific [place] Urine Protein Urine Glucose (UA) Urine Ketones Urine Blood Urine Nitrate Urine Bilirubin Urine Urobilinogen Ur Leukocyte Esterase Urine RBC Urine WBC Ur Epithelial Cells Amorphous Sediment Urine Bacteria Fine Granular Casts Coarse Granular Casts Urine Other Urine HCG, Qual Urine Opiates Screen Urine Methadone Screen Ur Barbiturates Screen Ur Phencyclidine Scrn Ur Amphetamines Screen U Benzodiazepines Scrn U Oth Cocaine Metabols U Cannabinoids Screen Assessment & Plan - Assessment and Plan (Free Text) Assessment: 53 year old female with Lung CA, Uterine CA, and asthma admitted with URI symptoms who then required intubation. Plan: Neuro: - Sepsis 2/2 PNA: Intubated; Nimbex, Levophed, Propofol, Versed Drips; Zyvox, Merrem, Doxy; Pancltures, procal; ID Consult - Maintain normothermia Pulm: - Possible PNA as above - Strep pna - f/u results Cardio: - A-Fib with RVR: Cardizem drip; Cardiology consult - Elevated BNP: ECHO ordered, Tropes ordered, Cardio Consult - Maintain MAP > 65 GI: - Transaminitis: Abd u/s ordered; GI Consult; Hep panel - Protonix for GI PPX Renal: - Monitor electrolytes, replte as necessary - Maintain euvolemia Endo - Maintain euglycemia Heme - Thrombocytopenia: monitor - Lovenox for DVT ppx ID: - As Above <Hunter Bhardwaj - Last Filed: 02/21/18 09:06> Meds - Medications Medications: Current Medications Enoxaparin Sodium (Lovenox) 86 mg SC Q12H LEE ANN PRN Reason: Protocol Last Admin: 02/21/18 00:14 Dose: 86 mg Hydrocortisone Sodium Succinate (Solu-Cortef) 50 mg IVP Q6 [facility] Last Admin: 02/21/18 06:24 Dose: 50 mg diltiaZEM IVPB 100mg in NS (Cardizem 100mg In Ns) 100 mls @ 5 mls/hr IV .Q20H PRN; Protocol; 5 MG/HR PRN Reason: TITRATE PER MD ORDER Last Admin: 02/21/18 05:56 Dose: 10 mg/hr, 10 mls/hr Propofol (Diprivan) 1,000 mg in 100 mls @ 2.585 mls/hr IV .Q24H PRN; Protocol; 5 MCG/KG/MIN PRN Reason: TITRATE PER MD ORDER Last Titration: 02/20/18 18:39 Dose: 0 mcg/kg/min, 0 mls/hr Fentanyl Citrate (Fentanyl Citrate/Sodium Chloride 1 Mg/100 Ml) 1,000 mcg in 100 mls @ 2 mls/hr IV .Q24H PRN; Protocol; 20 MCG/HR PRN Reason: TITRATE PER MD ORDER Last Admin: 02/20/18 14:57 Dose: 20 mcg/hr, 2 mls/hr Doxycycline Hyclate 100 mg/ (Sodium Chloride) 100 mls @ 100 mls/hr IVPB Q12 LEE ANN PRN Reason: Protocol Last Admin: 02/20/18 22:51 Dose: 100 mls/hr Dextrose/Sodium Chloride (Dextrose 5%/0.9% Ns 1000 Ml) 1,000 mls @ 150 mls/hr IV .Q6H40M [facility] Last Admin: 02/21/18 04:08 Dose: 150 mls/hr Cisatracurium Besylate 100 mg/ (Sodium Chloride) 260 mls @ 13.44 mls/hr IV .[id number] PRN; Protocol; 1 MCG/KG/MIN PRN Reason: TITRATE PER MD ORDER Last Admin: 02/21/18 06:45 Dose: 1 mcg/kg/min, 13.44 mls/hr Midazolam 100 mg/100ml in NS (Midazolam 100 Mg/100ml In Ns) 100 mg in 100 mls @ 1 mls/hr IV .Q24H PRN; Protocol; 1 MG/HR PRN Reason: Sedation Last Titration: 02/20/18 15:20 Dose: 5 mg/hr, 5 mls/hr NOREPINEPHRINE BIT/0.9 % NACL (Levophed 4 Mg/ 250 Ml Ns Premixed) 4 mg in 250 mls @ 15 mls/hr IV .[id number] PRN; Protocol; 4 MCG/MIN PRN Reason: TITRATE PER MD ORDER Last Admin: 02/21/18 03:34 Dose: 15 mcg/min, 56.25 mls/hr Vasopressin 20 units/ Sodium (Chloride) 101 mls @ 9.09 mls/hr IV .Q11H7M LEE ANN; 0.03 U/MIN PRN Reason: Protocol Last Admin: 02/21/18 02:13 Dose: 9.09 mls/hr Meropenem (Merrem Iv 1 Gm Premix) 50 mls @ 100 mls/hr IVPB Q12 LEE ANN PRN Reason: Protocol Last Admin: 02/20/18 22:31 Dose: 100 mls/hr Linezolid (Zyvox 600mg/300ml D5w) 600 mg in 300 mls @ 200 mls/hr IVPB Q12 LEE ANN PRN Reason: Protocol Stop: 02/27/18 16:46 Last Admin: 02/20/18 17:40 Dose: 200 mls/hr Acetaminophen (Ofirmev) 1,000 mg in 100 mls @ 400 mls/hr IVPB Q4H PRN PRN Reason: Temperature Stop: 02/23/18 01:04 Last Admin: 02/21/18 04:32 Dose: 400 mls/hr Phenylephrine HCl 40 mg/ (Sodium Chloride) 254 mls @ 38.1 mls/hr IV .Q6H40M PRN ; Protocol; 100 MCG/MIN PRN Reason: TITRATE PER MD ORDER Pantoprazole Sodium (Protonix 40mg Ivpb) 40 mg in 100 mls @ 20 mls/hr IVPB .Q5H LEE ANN Levalbuterol HCl (Xopenex) 0.63 mg IH Q2 PRN PRN Reason: Wheezing Levalbuterol HCl (Xopenex) 0.63 mg IH [id number] LEE ANN Results - Vital Signs Recent Vital Signs: Last Vital Signs Temp 105 F H 02/21/18 08:00 Pulse 125 H 02/21/18 08:50 Resp 35 H 06/06/18 08:00 BP 107/40 L 02/21/18 08:00 Pulse Ox 93 L 02/21/18 08:50 - Labs Result Diagrams: 02/21/18 08:30 02/20/18 17:48 Labs: Laboratory Results - last 24 hr 02/20/18 02/20/18 02/20/18 13:45 14:15 14:15 WBC RBC Hgb Hct MCV MCH MCHC RDW Plt Count MPV Gran % Lymph % (Auto) [place] % (Auto) Eos % (Auto) Baso % (Auto) Gran # Lymph # (Auto) [place] # (Auto) Eos # (Auto) Baso # (Auto) Fibrinogen pCO2 33 L pO2 59.0 L HCO3 15.2 L ABG pH 7.27 L ABG Total CO2 16.2 L ABG O2 Saturation 89.9 L ABG O2 Content ABG Base Excess -10.6 L ABG Hemoglobin ABG Carboxyhemoglobin POC ABG HHb (Measured) ABG Methemoglobin ABG O2 Capacity ABG Potassium 3.0 L VBG pH VBG pCO2 VBG HCO3 VBG Total CO2 VBG O2 Sat (Calc) VBG Base Excess VBG Potassium Hgb O2 Saturation Sodium 136.0 Chloride 104.0 Glucose 88 Lactate 5.4 H* Mechanical Rate 16 FiO2 100.0 Tidal Volume 400 PEEP 10 Potassium Carbon Dioxide Anion Gap BUN Creatinine Est GFR ( Amer) Est GFR (Non-Af Amer) POC Glucose (mg/dL) Random Glucose Calcium Total Bilirubin GGT AST ALT Alkaline Phosphatase Troponin I C-Reactive Protein Total Protein Albumin Globulin Albumin/Globulin Ratio Procalcitonin Arterial Blood Potassium 3.0 L Venous Blood Potassium Urine Color Dark yellow Urine Appearance Sl cloudy Urine pH 6.0 Ur Specific [place] 1.020 Urine Protein 100 H Urine Glucose (UA) 100 H Urine Ketones Negative Urine Blood Negative Urine Nitrate Negative Urine Bilirubin Moderate H Urine Urobilinogen 2.0 H Ur Leukocyte Esterase Trace H Urine RBC 1 - 3 Urine WBC 10 - 15 Ur Epithelial Cells 6 - 8 Amorphous Sediment Moderate Urine Bacteria Large Fine Granular Casts 0 - 2 Coarse Granular Casts Trace H Urine Other Uyeast Urine HCG, Qual Negative Urine Opiates Screen Positive H Urine Methadone Screen Negative Ur Barbiturates Screen Negative Ur Phencyclidine Scrn Negative Ur Amphetamines Screen Negative U Benzodiazepines Scrn Negative U Oth Cocaine Metabols Negative U Cannabinoids Screen Negative Hepatitis A IgM Ab Hep Bs Antigen Hep B Core IgM Ab Hepatitis C Antibody Crossmatch BBK History Checked 02/20/18 02/20/18 02/20/18 14:15 15:47 15:47 WBC RBC Hgb Hct MCV MCH MCHC RDW Plt Count MPV Gran % Lymph % (Auto) [place] % (Auto) Eos % (Auto) Baso % (Auto) Gran # Lymph # (Auto) [place] # (Auto) Eos # (Auto) Baso # (Auto) Fibrinogen pCO2 pO2 HCO3 ABG pH ABG Total CO2 ABG O2 Saturation ABG O2 Content ABG Base Excess ABG Hemoglobin ABG Carboxyhemoglobin POC ABG HHb (Measured) ABG Methemoglobin ABG O2 Capacity ABG Potassium VBG pH VBG pCO2 VBG HCO3 VBG Total CO2 VBG O2 Sat (Calc) VBG Base Excess VBG Potassium Hgb O2 Saturation Sodium Chloride Glucose Lactate Mechanical Rate FiO2 Tidal Volume PEEP Potassium Carbon Dioxide Anion Gap BUN Creatinine Est GFR ( Amer) Est GFR (Non-Af Amer) POC Glucose (mg/dL) Random Glucose Calcium Total Bilirubin GGT 85 H AST ALT Alkaline Phosphatase Troponin I C-Reactive Protein 236.80 H Total Protein Albumin Globulin Albumin/Globulin Ratio Procalcitonin 17.09 H Arterial Blood Potassium Venous Blood Potassium Urine Color Urine Appearance Urine pH Ur Specific [place] Urine Protein Urine Glucose (UA) Urine Ketones Urine Blood Urine Nitrate Urine Bilirubin Urine Urobilinogen Ur Leukocyte Esterase Urine RBC Urine WBC Ur Epithelial Cells Amorphous Sediment Urine Bacteria Fine Granular Casts Coarse Granular Casts Urine Other Urine HCG, Qual Urine Opiates Screen Urine Methadone Screen Ur Barbiturates Screen Ur Phencyclidine Scrn Ur Amphetamines Screen U Benzodiazepines Scrn U Oth Cocaine Metabols U Cannabinoids Screen Hepatitis A IgM Ab Hep Bs Antigen Hep B Core IgM Ab Hepatitis C Antibody Crossmatch BBK History Checked 02/20/18 02/20/18 02/20/18 15:47 15:47 16:50 WBC RBC Hgb Hct MCV MCH MCHC RDW Plt Count MPV Gran % Lymph % (Auto) [place] % (Auto) Eos % (Auto) Baso % (Auto) Gran # Lymph # (Auto) [place] # (Auto) Eos # (Auto) Baso # (Auto) Fibrinogen pCO2 58 H pO2 163 H 74.0 L HCO3 17.2 L ABG pH 7.08 L* ABG Total CO2 19.0 L ABG O2 Saturation 92.1 L ABG O2 Content ABG Base Excess -13.2 L ABG Hemoglobin ABG Carboxyhemoglobin POC ABG HHb (Measured) ABG Methemoglobin ABG O2 Capacity ABG Potassium 3.3 L VBG pH 7.26 L VBG pCO2 35.0 L VBG HCO3 15.7 L VBG Total CO2 16.8 L VBG O2 Sat (Calc) 99.9 H VBG Base Excess -10.4 L VBG Potassium 3.1 L Hgb O2 Saturation Sodium 136.0 137.0 Chloride 105.0 106.0 Glucose 93 135 H Lactate 4.7 H* 3.4 H Mechanical Rate 30 FiO2 21.0 100.0 Tidal Volume 300 PEEP 16 Potassium Carbon Dioxide Anion Gap BUN Creatinine Est GFR ( Amer) Est GFR (Non-Af Amer) POC Glucose (mg/dL) Random Glucose Calcium Total Bilirubin GGT AST ALT Alkaline Phosphatase Troponin I C-Reactive Protein Total Protein Albumin Globulin Albumin/Globulin Ratio Procalcitonin Arterial Blood Potassium 3.3 L Venous Blood Potassium 3.1 L Urine Color Urine Appearance Urine pH Ur Specific [place] Urine Protein Urine Glucose (UA) Urine Ketones Urine Blood Urine Nitrate Urine Bilirubin Urine Urobilinogen Ur Leukocyte Esterase Urine RBC Urine WBC Ur Epithelial Cells Amorphous Sediment Urine Bacteria Fine Granular Casts Coarse Granular Casts Urine Other Urine HCG, Qual Urine Opiates Screen Urine Methadone Screen Ur Barbiturates Screen Ur Phencyclidine Scrn Ur Amphetamines Screen U Benzodiazepines Scrn U Oth Cocaine Metabols U Cannabinoids Screen Hepatitis A IgM Ab Negative Hep Bs Antigen Negative Hep B Core IgM Ab Negative Hepatitis C Antibody Reactive Crossmatch BBK History Checked 02/20/18 02/20/18 02/20/18 17:48 17:48 18:50 WBC 25.1 H* D RBC 3.74 Hgb 13.3 Hct 34.9 L MCV 93.3 MCH 35.6 H MCHC 38.1 H RDW 13.2 Plt Count 80 L MPV 12.2 H Gran % 95.0 H Lymph % (Auto) 3.4 L [place] % (Auto) 1.4 Eos % (Auto) 0.0 L Baso % (Auto) 0.2 Gran # 23.84 H Lymph # (Auto) 0.8 L [place] # (Auto) 0.4 Eos # (Auto) 0.0 Baso # (Auto) 0.04 Fibrinogen pCO2 49 H pO2 78.0 L HCO3 15.9 L ABG pH 7.12 L* ABG Total CO2 17.4 L ABG O2 Saturation 93.7 L ABG O2 Content ABG Base Excess -13.4 L ABG Hemoglobin ABG Carboxyhemoglobin POC ABG HHb (Measured) ABG Methemoglobin ABG O2 Capacity ABG Potassium 4.1 VBG pH VBG pCO2 VBG HCO3 VBG Total CO2 VBG O2 Sat (Calc) VBG Base Excess VBG Potassium Hgb O2 Saturation Sodium 140 135.0 Chloride 104 103.0 Glucose 244 H Lactate 3.8 H Mechanical Rate 35 FiO2 100.0 Tidal Volume 350 PEEP 16 Potassium 4.0 Carbon Dioxide 16 L Anion Gap 24 H BUN 58 H Creatinine 0.8 Est GFR ( Amer) > 60 Est GFR (Non-Af Amer) > 60 POC Glucose (mg/dL) Random Glucose 154 H Calcium 6.7 L* Total Bilirubin 3.4 H GGT AST 98 H D ALT 52 Alkaline Phosphatase 24 L D Troponin I 0.06 C-Reactive Protein Total Protein 5.6 L Albumin 2.5 L Globulin 3.0 Albumin/Globulin Ratio 0.8 L Procalcitonin Arterial Blood Potassium 4.1 Venous Blood Potassium Urine Color Urine Appearance Urine pH Ur Specific [place] Urine Protein Urine Glucose (UA) Urine Ketones Urine Blood Urine Nitrate Urine Bilirubin Urine Urobilinogen Ur Leukocyte Esterase Urine RBC Urine WBC Ur Epithelial Cells Amorphous Sediment Urine Bacteria Fine Granular Casts Coarse Granular Casts Urine Other Urine HCG, Qual Urine Opiates Screen Urine Methadone Screen Ur Barbiturates Screen Ur Phencyclidine Scrn Ur Amphetamines Screen U Benzodiazepines Scrn U Oth Cocaine Metabols U Cannabinoids Screen Hepatitis A IgM Ab Hep Bs Antigen Hep B Core IgM Ab Hepatitis C Antibody Crossmatch BBK History Checked 02/20/18 02/20/18 02/21/18 22:16 23:15 03:10 WBC RBC Hgb Hct MCV MCH MCHC RDW Plt Count MPV Gran % Lymph % (Auto) [place] % (Auto) Eos % (Auto) Baso % (Auto) Gran # Lymph # (Auto) [place] # (Auto) Eos # (Auto) Baso # (Auto) Fibrinogen pCO2 49 H pO2 91.0 55 HCO3 16.7 L ABG pH 7.14 L* ABG Total CO2 18.2 L ABG O2 Saturation 97.8 ABG O2 Content ABG Base Excess -12.3 L ABG Hemoglobin ABG Carboxyhemoglobin POC ABG HHb (Measured) ABG Methemoglobin ABG O2 Capacity ABG Potassium 3.4 L VBG pH 7.13 L* VBG pCO2 59.0 VBG HCO3 19.6 L VBG Total CO2 21.4 L VBG O2 Sat (Calc) 86.1 H VBG Base Excess -10.1 L VBG Potassium 4.3 Hgb O2 Saturation Sodium 138.0 134.0 Chloride 104.0 101.0 Glucose 309 H 367 H Lactate 2.9 H 3.1 H Mechanical Rate FiO2 100.0 21.0 Tidal Volume PEEP Potassium Carbon Dioxide Anion Gap BUN Creatinine Est GFR ( Amer) Est GFR (Non-Af Amer) POC Glucose (mg/dL) 310 H Random Glucose Calcium Total Bilirubin GGT AST ALT Alkaline Phosphatase Troponin I C-Reactive Protein Total Protein Albumin Globulin Albumin/Globulin Ratio Procalcitonin Arterial Blood Potassium 3.4 L Venous Blood Potassium 4.3 Urine Color Urine Appearance Urine pH Ur Specific [place] Urine Protein Urine Glucose (UA) Urine Ketones Urine Blood Urine Nitrate Urine Bilirubin Urine Urobilinogen Ur Leukocyte Esterase Urine RBC Urine WBC Ur Epithelial Cells Amorphous Sediment Urine Bacteria Fine Granular Casts Coarse Granular Casts Urine Other Urine HCG, Qual Urine Opiates Screen Urine Methadone Screen Ur Barbiturates Screen Ur Phencyclidine Scrn Ur Amphetamines Screen U Benzodiazepines Scrn U Oth Cocaine Metabols U Cannabinoids Screen Hepatitis A IgM Ab Hep Bs Antigen Hep B Core IgM Ab Hepatitis C Antibody Crossmatch BBK History Checked 02/21/18 02/21/18 02/21/18 04:10 07:00 08:30 WBC 23.7 H RBC 2.87 L Hgb 10.1 L D Hct 27.5 L MCV 95.8 MCH 35.2 H MCHC 36.7 RDW 14.1 Plt Count 83 L MPV 12.3 H Gran % 93.8 H Lymph % (Auto) 2.8 L [place] % (Auto) 3.3 Eos % (Auto) 0.0 L Baso % (Auto) 0.1 Gran # 22.26 H Lymph # (Auto) 0.7 L [place] # (Auto) 0.8 H Eos # (Auto) 0.0 Baso # (Auto) 0.02 Fibrinogen 476 H pCO2 48 H pO2 126.0 H HCO3 20.1 L ABG pH 7.23 L ABG Total CO2 21.6 L ABG O2 Saturation 99.6 H ABG O2 Content 15.0 ABG Base Excess -7.3 L ABG Hemoglobin 10.8 L ABG Carboxyhemoglobin 1.1 POC ABG HHb (Measured) 0.4 ABG Methemoglobin 1.3 ABG O2 Capacity 15.1 L ABG Potassium VBG pH VBG pCO2 VBG HCO3 VBG Total CO2 VBG O2 Sat (Calc) VBG Base Excess VBG Potassium Hgb O2 Saturation 97.2 Sodium Chloride Glucose Lactate Mechanical Rate FiO2 100.0 Tidal Volume PEEP Potassium Carbon Dioxide Anion Gap BUN Creatinine Est GFR ( Amer) Est GFR (Non-Af Amer) POC Glucose (mg/dL) Random Glucose Calcium Total Bilirubin GGT AST ALT Alkaline Phosphatase Troponin I C-Reactive Protein Total Protein Albumin Globulin Albumin/Globulin Ratio Procalcitonin Arterial Blood Potassium Venous Blood Potassium Urine Color Urine Appearance Urine pH Ur Specific [place] Urine Protein Urine Glucose (UA) Urine Ketones Urine Blood Urine Nitrate Urine Bilirubin Urine Urobilinogen Ur Leukocyte Esterase Urine RBC Urine WBC Ur Epithelial Cells Amorphous Sediment Urine Bacteria Fine Granular Casts Coarse Granular Casts Urine Other Urine HCG, Qual Urine Opiates Screen Urine Methadone Screen Ur Barbiturates Screen Ur Phencyclidine Scrn Ur Amphetamines Screen U Benzodiazepines Scrn U Oth Cocaine Metabols U Cannabinoids Screen Hepatitis A IgM Ab Hep Bs Antigen Hep B Core IgM Ab Hepatitis C Antibody Crossmatch BBK History Checked 02/21/18 08:30 WBC RBC Hgb Hct MCV MCH MCHC RDW Plt Count MPV Gran % Lymph % (Auto) [place] % (Auto) Eos % (Auto) Baso % (Auto) Gran # Lymph # (Auto) [place] # (Auto) Eos # (Auto) Baso # (Auto) Fibrinogen pCO2 pO2 HCO3 ABG pH ABG Total CO2 ABG O2 Saturation ABG O2 Content ABG Base Excess ABG Hemoglobin ABG Carboxyhemoglobin POC ABG HHb (Measured) ABG Methemoglobin ABG O2 Capacity ABG Potassium VBG pH VBG pCO2 VBG HCO3 VBG Total CO2 VBG O2 Sat (Calc) VBG Base Excess VBG Potassium Hgb O2 Saturation Sodium Chloride Glucose Lactate Mechanical Rate FiO2 Tidal Volume PEEP Potassium Carbon Dioxide Anion Gap BUN Creatinine Est GFR ( Amer) Est GFR (Non-Af Amer) POC Glucose (mg/dL) Random Glucose Calcium Total Bilirubin GGT AST ALT Alkaline Phosphatase Troponin I C-Reactive Protein Total Protein Albumin Globulin Albumin/Globulin Ratio Procalcitonin Arterial Blood Potassium Venous Blood Potassium Urine Color Urine Appearance Urine pH Ur Specific [place] Urine Protein Urine Glucose (UA) Urine Ketones Urine Blood Urine Nitrate Urine Bilirubin Urine Urobilinogen Ur Leukocyte Esterase Urine RBC Urine WBC Ur Epithelial Cells Amorphous Sediment Urine Bacteria Fine Granular Casts Coarse Granular Casts Urine Other Urine HCG, Qual Urine Opiates Screen Urine Methadone Screen Ur Barbiturates Screen Ur Phencyclidine Scrn Ur Amphetamines Screen U Benzodiazepines Scrn U Oth Cocaine Metabols U Cannabinoids Screen Hepatitis A IgM Ab Hep Bs Antigen Hep B Core IgM Ab Hepatitis C Antibody Crossmatch See Detail BBK History Checked No verified bt Attending/Attestation - Attestation I have personally seen and examined this patient.: Yes I have fully participated in the care of the patient.: Yes I have reviewed all pertinent clinical information: Yes Notes (Text): 02/21/18 09:[address] Bhardwaj note
[2018-02-20 18:59] LABS: ARTERIAL BLOOD GAS HCO3 15.9 mmol/L (21-28); ARTERIAL BLOOD GAS O2 SAT 93.7 % (95-98); ARTERIAL BLOOD GAS PCO2 49 mm/Hg (35-45); ARTERIAL BLOOD GAS TCO2 17.4 mmol.L (22-28)
--- NOTE | 2018-02-20 19:03 | CP.PCM.CON ---
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 The patient has been receiving carboplatin and paclitaxel chemotherapy, last given on 02/09/18. The patient is currently vented, on vasopressor support and I am unable to obtain a history from the patient. Past medical, surgical, family, social history cannot be obtained from the patient. Allergies: per documentation NKA Review of systems cannot be obtained Past Patient History - Past Medical History & Family History Past Medical History?: Yes - Past Social History Smoking Status: Current Some Days Smoker - CARDIAC Hx Cardiac Disorders: No - PULMONARY Hx Respiratory Disorders: Yes Hx Asthma: Yes Hx Chronic Obstructive Pulmonary Disease (COPD): Yes Hx Lung Cancer: Yes - NEUROLOGICAL Hx Neurological Disorder: No - HEENT Hx HEENT Problems: No - RENAL Hx Chronic Kidney Disease: No - ENDOCRINE/METABOLIC Hx Endocrine Disorders: No - HEMATOLOGICAL/ONCOLOGICAL Hx Blood Disorders: Yes Hx Cancer: Yes Hx Hepatitis B: Yes Hx Hepatitis C: Yes Other/Comment: MRSA abcess on back - INTEGUMENTARY Hx Dermatological Problems: No - MUSCULOSKELETAL/RHEUMATOLOGICAL Hx Musculoskeletal Disorders: No - GASTROINTESTINAL Hx Gastrointestinal Disorders: Yes Hx Gastroesophageal Reflux: Yes - GENITOURINARY/GYNECOLOGICAL Hx Genitourinary Disorders: No - PSYCHIATRIC Hx Psychophysiologic Disorder: Yes Hx Depression: Yes - SURGICAL HISTORY Hx Section: Yes Hx Hysterectomy: Yes Hx Vascular Access Device: Yes (SRI CATH INSERTION X 2 & REMOVAL ) Other/Comment: SPLEENECTOMY 2009 - ANESTHESIA Hx Anesthesia: Yes Hx Anesthesia Reactions: No Hx Malignant Hyperthermia: No Meds Allergies/Adverse Reactions: Allergies Allergy/AdvReac Type Severity Reaction Status Date / Time No Known Allergies Allergy Verified 05/29/14 07:39 - Medications Medications: Current Medications Enoxaparin Sodium (Lovenox) 86 mg SC Q12H LEE ANN PRN Reason: Protocol Hydrocortisone Sodium Succinate (Solu-Cortef) 50 mg IVP Q6 [facility] Last Admin: 02/20/18 17:39 Dose: 50 mg diltiaZEM IVPB 100mg in NS (Cardizem 100mg In Ns) 100 mls @ 5 mls/hr IV .Q20H PRN; Protocol; 5 MG/HR PRN Reason: TITRATE PER MD ORDER Last Admin: 02/20/18 12:33 Dose: 5 mls/hr Propofol (Diprivan) 1,000 mg in 100 mls @ 2.585 mls/hr IV .Q24H PRN; Protocol; 5 MCG/KG/MIN PRN Reason: TITRATE PER MD ORDER Last Titration: 02/20/18 18:39 Dose: 0 mcg/kg/min, 0 mls/hr Fentanyl Citrate (Fentanyl Citrate/Sodium Chloride 1 Mg/100 Ml) 1,000 mcg in 100 mls @ 2 mls/hr IV .Q24H PRN; Protocol; 20 MCG/HR PRN Reason: TITRATE PER MD ORDER Last Admin: 02/20/18 14:57 Dose: 20 mcg/hr, 2 mls/hr Doxycycline Hyclate 100 mg/ (Sodium Chloride) 100 mls @ 100 mls/hr IVPB Q12 LEE ANN PRN Reason: Protocol Dextrose/Sodium Chloride (Dextrose 5%/0.9% Ns 1000 Ml) 1,000 mls @ 150 mls/hr IV .Q6H40M LEE ANN Last Admin: 02/20/18 17:36 Dose: 150 mls/hr Cisatracurium Besylate 100 mg/ (Sodium Chloride) 260 mls @ 13.44 mls/hr IV .Q16V75P PRN; Protocol; 1 MCG/KG/MIN PRN Reason: TITRATE PER MD ORDER Last Titration: 02/20/18 17:54 Dose: 1 mcg/kg/min, 13.44 mls/hr Midazolam 100 mg/100ml in NS (Midazolam 100 Mg/100ml In Ns) 100 mg in 100 mls @ 1 mls/hr IV .Q24H PRN; Protocol; 1 MG/HR PRN Reason: Sedation Last Titration: 02/20/18 15:20 Dose: 5 mg/hr, 5 mls/hr NOREPINEPHRINE BIT/0.9 % NACL (Levophed 4 Mg/ 250 Ml Ns Premixed) 4 mg in 250 mls @ 15 mls/hr IV .[id number] PRN; Protocol; 4 MCG/MIN PRN Reason: TITRATE PER MD ORDER Last Admin: 02/20/18 15:30 Dose: 4 mcg/min, 15 mls/hr Vasopressin 20 units/ Sodium (Chloride) 101 mls @ 9.09 mls/hr IV .Q11H7M LEE ANN; 0.03 U/MIN PRN Reason: Protocol Last Admin: 02/20/18 16:11 Dose: 9.09 mls/hr Meropenem (Merrem Iv 1 Gm Premix) 50 mls @ 100 mls/hr IVPB Q12 LEE ANN PRN Reason: Protocol Linezolid (Zyvox 600mg/300ml D5w) 600 mg in 300 mls @ 200 mls/hr IVPB Q12 LEE ANN PRN Reason: Protocol Stop: 02/27/18 16:46 Last Admin: 02/20/18 17:40 Dose: 200 mls/hr Levalbuterol HCl (Xopenex) 0.63 mg IH [id number] LEE ANN Last Admin: 02/20/18 15:56 Dose: Not Given Levalbuterol HCl (Xopenex) 0.63 mg IH Q2 PRN PRN Reason: Wheezing Pantoprazole Sodium (Protonix Inj) 40 mg IVP DAILY [facility] Physical Exam - Head Exam Head Exam: ATRAUMATIC - Eye Exam Eye Exam: Normal appearance - ENT Exam ENT Exam: Mucous Membranes Dry - Respiratory Exam Respiratory Exam: NORMAL BREATHING PATTERN - Cardiovascular Exam Cardiovascular Exam: +S1, +S2 - GI/Abdominal Exam GI & Abdominal Exam: Normal Bowel Sounds - Extremities Exam Extremities exam: Positive for: pedal edema Results - Vital Signs Recent Vital Signs: Last Vital Signs Temp 99.2 F 02/20/18 15:47 Pulse 135 H 02/20/18 18:39 Resp 35 H 02/20/18 17:36 BP 112/73 02/20/18 18:40 Pulse Ox 89 L 02/20/18 18:39 - Labs Result Diagrams: 02/20/18 17:48 02/20/18 17:48 Labs: Laboratory Results - last 24 hr 02/20/18 02/20/18 02/20/18 13:45 14:15 14:15 WBC RBC Hgb Hct MCV MCH MCHC RDW Plt Count MPV Gran % Lymph % (Auto) [place] % (Auto) Eos % (Auto) Baso % (Auto) Gran # Lymph # (Auto) [place] # (Auto) Eos # (Auto) Baso # (Auto) pCO2 33 L pO2 59.0 L HCO3 15.2 L ABG pH 7.27 L ABG Total CO2 16.2 L ABG O2 Saturation 89.9 L ABG Base Excess -10.6 L ABG Potassium 3.0 L VBG pH VBG pCO2 VBG HCO3 VBG Total CO2 VBG O2 Sat (Calc) VBG Base Excess VBG Potassium Sodium 136.0 Chloride 104.0 Glucose 88 Lactate 5.4 H* Mechanical Rate 16 FiO2 100.0 Tidal Volume 400 PEEP 10 Potassium Carbon Dioxide Anion Gap BUN Creatinine Est GFR ( Amer) Est GFR (Non-Af Amer) Random Glucose Calcium Total Bilirubin GGT AST ALT Alkaline Phosphatase Troponin I Total Protein Albumin Globulin Albumin/Globulin Ratio Arterial Blood Potassium 3.0 L Venous Blood Potassium Urine Color Dark yellow Urine Appearance Sl cloudy Urine pH 6.0 Ur Specific [place] 1.020 Urine Protein 100 H Urine Glucose (UA) 100 H Urine Ketones Negative Urine Blood Negative Urine Nitrate Negative Urine Bilirubin Moderate H Urine Urobilinogen 2.0 H Ur Leukocyte Esterase Trace H Urine RBC 1 - 3 Urine WBC 10 - 15 Ur Epithelial Cells 6 - 8 Amorphous Sediment Moderate Urine Bacteria Large Fine Granular Casts 0 - 2 Coarse Granular Casts Trace H Urine Other [place] Urine HCG, Qual Negative Urine Opiates Screen Positive H Urine Methadone Screen Negative Ur Barbiturates Screen Negative Ur Phencyclidine Scrn Negative Ur Amphetamines Screen Negative U Benzodiazepines Scrn Negative U Oth Cocaine Metabols Negative U Cannabinoids Screen Negative 02/20/18 02/20/18 02/20/18 14:15 15:47 16:50 WBC RBC Hgb Hct MCV MCH MCHC RDW Plt Count MPV Gran % Lymph % (Auto) [place] % (Auto) Eos % (Auto) Baso % (Auto) Gran # Lymph # (Auto) [place] # (Auto) Eos # (Auto) Baso # (Auto) pCO2 58 H pO2 163 H 74.0 L HCO3 17.2 L ABG pH 7.08 L* ABG Total CO2 19.0 L ABG O2 Saturation 92.1 L ABG Base Excess -13.2 L ABG Potassium 3.3 L VBG pH 7.26 L VBG pCO2 35.0 L VBG HCO3 15.7 L VBG Total CO2 16.8 L VBG O2 Sat (Calc) 99.9 H VBG Base Excess -10.4 L VBG Potassium 3.1 L Sodium 136.0 137.0 Chloride 105.0 106.0 Glucose 93 135 H Lactate 4.7 H* 3.4 H Mechanical Rate 30 FiO2 21.0 100.0 Tidal Volume 300 PEEP 16 Potassium Carbon Dioxide Anion Gap BUN Creatinine Est GFR ( Amer) Est GFR (Non-Af Amer) Random Glucose Calcium Total Bilirubin GGT 85 H AST ALT Alkaline Phosphatase Troponin I Total Protein Albumin Globulin Albumin/Globulin Ratio Arterial Blood Potassium 3.3 L Venous Blood Potassium 3.1 L Urine Color Urine Appearance Urine pH Ur Specific [place] Urine Protein Urine Glucose (UA) Urine Ketones Urine Blood Urine Nitrate Urine Bilirubin Urine Urobilinogen Ur Leukocyte Esterase Urine RBC Urine WBC Ur Epithelial Cells Amorphous Sediment Urine Bacteria Fine Granular Casts Coarse Granular Casts Urine Other Urine HCG, Qual Urine Opiates Screen Urine Methadone Screen Ur Barbiturates Screen Ur Phencyclidine Scrn Ur Amphetamines Screen U Benzodiazepines Scrn U Oth Cocaine Metabols U Cannabinoids Screen 02/20/18 02/20/18 17:48 17:48 WBC 25.1 H* D RBC 3.74 Hgb 13.3 Hct 34.9 L MCV 93.3 MCH 35.6 H MCHC 38.1 H RDW 13.2 Plt Count 80 L MPV 12.2 H Gran % 95.0 H Lymph % (Auto) 3.4 L [place] % (Auto) 1.4 Eos % (Auto) 0.0 L Baso % (Auto) 0.2 Gran # 23.84 H Lymph # (Auto) 0.8 L [place] # (Auto) 0.4 Eos # (Auto) 0.0 Baso # (Auto) 0.04 pCO2 pO2 HCO3 ABG pH ABG Total CO2 ABG O2 Saturation ABG Base Excess ABG Potassium VBG pH VBG pCO2 VBG HCO3 VBG Total CO2 VBG O2 Sat (Calc) VBG Base Excess VBG Potassium Sodium 140 Chloride 104 Glucose Lactate Mechanical Rate FiO2 Tidal Volume PEEP Potassium 4.0 Carbon Dioxide 16 L Anion Gap 24 H BUN 58 H Creatinine 0.8 Est GFR ( Amer) > 60 Est GFR (Non-Af Amer) > 60 Random Glucose 154 H Calcium 6.7 L* Total Bilirubin 3.4 H GGT AST 98 H D ALT 52 Alkaline Phosphatase 24 L D Troponin I 0.06 Total Protein 5.6 L Albumin 2.5 L Globulin 3.0 Albumin/Globulin Ratio 0.8 L Arterial Blood Potassium Venous Blood Potassium Urine Color Urine Appearance Urine pH Ur Specific [place] Urine Protein Urine Glucose (UA) Urine Ketones Urine Blood Urine Nitrate Urine Bilirubin Urine Urobilinogen Ur Leukocyte Esterase Urine RBC Urine WBC Ur Epithelial Cells Amorphous Sediment Urine Bacteria Fine Granular Casts Coarse Granular Casts Urine Other Urine HCG, Qual Urine Opiates Screen Urine Methadone Screen Ur Barbiturates Screen Ur Phencyclidine Scrn Ur Amphetamines Screen U Benzodiazepines Scrn U Oth Cocaine Metabols U Cannabinoids Screen Assessment & Plan - Assessment and Plan (Free Text) Assessment: 1. Thrombocytopenia - normal plt count prior to chemotherapy - likely secondary to chemotherapy and possible sepsis - check fibrinogen to rule out DIC 2. Coagulopathy - ? nutritional ? DIC - check fibrinogen level 3. Leukocytosis - on antibiotics 4. Stage IV uterine cancer - lung and bone metastasis - on carboplatin and paclitaxel; last given 02/09/18 - outpatient treatment Thank you for this interesting consult.
[2018-02-20 19:10] LABS: ARTERIAL BLOOD GAS PH 7.12 (7.35-7.45)
[2018-02-20] MEDS ORDERED: Vancomycin 1gm in NS 250ml 1 GM/250 ML BAG IVPB SCH (20:00)
--- NOTE | 2018-02-20 20:14 | US ---
EXAM: US Abdomen Complete EXAM DATE/TIME: 02/20/2018 2:16 PM CLINICAL HISTORY: The patient age is 53 years old and is female; Pain; Abdominal pain; Generalized; Additional info: Transaminits Facility exam id and description: Us abd abdomen complete TECHNIQUE: Real-time ultrasound of the abdomen (complete) with image documentation. COMPARISON: No relevant prior studies available. FINDINGS: Liver: The liver is increased in echogenicity, most commonly due to fatty infiltration, but other chronic liver diseases may have a similar appearance. The liver measures 15.8 x 11.0 cm. Gallbladder: No discrete gallstones are visualized. There is borderline gallbladder wall thickening measuring 0.3 cm. No pericholecystic fluid is visualized. The sonographic Robertson's sign is negative. Common bile duct: The common bile that measures 0.4 cm in diameter, which is within normal limits. Pancreas: The pancreas is not visualized due to bowel gas. Kidneys: There is increased loculation of the right renal cortex. No shadowing stones. No hydronephrosis. The right kidney measures 9.7 x 5.0 x 4.8 cm. The left kidney and spleen were not imaged because according to the technologist, the patient was unable to move into position. Spleen: See above. Aorta: The visualized segment of the abdominal aorta is normal in caliber and patent. The abdominal aorta is incompletely visualized. Inferior vena cava: The visualized segment of the IVC is patent. IMPRESSION: 1. The liver is increased in echogenicity, most commonly due to fatty infiltration, but other chronic liver diseases may have a similar appearance. 2. No discrete gallstones are visualized. There is borderline gallbladder wall thickening measuring 0.3 cm. Clinical correlation is recommended. 3. There is increased loculation of the right renal cortex. No hydronephrosis. 4. Additional findings described above.
[2018-02-20] MEDS ORDERED: Pneumococcal 23-Valent Vaccine IM ONE (21:14)
[2018-02-20] MEDS ORDERED: Meropenem IV 1 gm in NS 50 ML IVPB SCH (22:00)
[2018-02-20 22:37] LABS: HEPATITIS B SURFACE AG Negative (NEGATIVE)
[2018-02-20 22:42] LABS: HEPATITIS A IGM NEGATIVE (NEGATIVE)
--- NOTE | 2018-02-20 23:07 | PCM.PROC ---
<Carlos Eduardo Malik - Last Filed: 02/20/18 23:05> Procedures Attestation:: I certify that I have explained the specified Operation(s) or Procedure(s), risks, benefits and reasonable alternatives to the Patient and/or other person responsible. The opportunity was given to ask questions and all questions answered - Arterial Line Right Femoral Aseptic technique was employed throughout the procedure: Hand Hygiene done prior to procedure, Full sterile barriers (mask, hair cover, sterile gown, sterile gloves), Full body sterile drape, Chloraprep Antiseptic: 2 minute prep for Femoral Time Out Performed: Yes Pt. placed on Pulse Ox Monitor: Yes Central Line Prep: Chlorhexidine-Alcohol Combination Ultrasound Used for Placement: Yes Gauge (Size): 20 gauge Technique Used: Guide Wire Technique Secured by: Suture Post procedure dressing: Clear vapor permeable, Chlorhexidine disc (Biopatch) Patient Tolerated Procedure: well Immediate Complications: none Additional Comments: Assisted by Dr. Iza Mckeon PGY1 <Jeanne Garcia - Last Filed: 02/21/18 00:33> Attending/Attestation - Attestation I have personally seen and examined this patient.: Yes I have fully participated in the care of the patient.: Yes I have reviewed all pertinent clinical information, including history, physical exam and plan: Yes
[2018-02-20 23:19] LABS: HEPATITIS B CORE AB NEGATIVE (NEGATIVE)
--- NOTE | 2018-02-20 23:25 | CON ---
DATE: 02/20/2018 HISTORY OF PRESENT ILLNESS: This is a 53-year-old lady with history of uterine cancer with mets to the lungs and lymph nodes of the neck, who presented with severe shortness of breath that started yesterday and associated with some cough and some whitish sputum production. She also complaining of palpitation. Her symptoms were progressing to the point that she almost could not breathe earlier today and had to be admitted to [facility] ER. There, she also was found to have AFib with RVR, which also was attempted to be treated with antiarrhythmics. Subsequently, she was found to have lobar consolidation in the right upper and lower lobes. Concern for community-acquired pneumonia and severe sepsis was raised, and the patient was started on antibiotics and septic workup was initiated. Her condition deteriorated to the point that she required to be intubated for hypoxemic respiratory failure. No nausea, no vomiting, no diarrhea, no constipation, no chest pain. PAST MEDICAL HISTORY: Asthma, uterine cancer with metastasis to the lungs, and depression. SOCIAL HISTORY: No alcohol abuse. Had a questionable history of heroin abuse in the past. She is active smoker. ALLERGIES: NKDA. MEDICATIONS AT HOME: Vitamin B and C complex, Zoloft, oxycodone, Singulair, fentanyl patch, Pepcid, Ventolin. FAMILY HISTORY: Noncontributory. REVIEW OF SYSTEMS: Review of 12-organ systems other than mentioned in history of present illness is negative. PHYSICAL EXAMINATION: VITAL SIGNS: Heart rate 169, blood pressure 92/43, respiratory rate 20, oxygen saturation 89% on 100% FiO2. ENT: Head and neck atraumatic. NECK: There is a palpable lymphadenopathy present in the left supraclavicular area of the neck. LUNGS: Breath sounds substantially decreased on the right side. Few crackles bilaterally. HEART: Regular rate and rhythm. S1, S2 distant, tachycardic, irregular. ABDOMEN: Soft, nontender and nondistended. MUSCULOSKELETAL: No C/C/E. NEURO: The patient was seen moving all extremities spontaneously. SKIN: Moist. PSYCH: The patient was in visible respiratory distress prior to intubation, now sedated. LABORATORY DATA: WBC 16.5, hemoglobin 14.9, platelet count 83. Sodium 138, potassium 3, chloride 99, carbon dioxide 17, BUN 61, creatinine 1.2, glucose 66, AST 131, ALT 58, total bilirubin 4. ABG 7.27/33/59. Lactic acid 5.4 down from 7.8 on FiO2 100%, tidal volume 400 and PEEP 10. INR 1.42. Salicylates less than 1. Tylenol less than 10. Alcohol less than 10. Chest x-ray showed dense consolidation in the right upper lobe and right middle lobe consistent with pneumonia. Endotracheal tube in satisfactory position. ASSESSMENT AND PLAN: This is s 53-year-old lady with stage IV uterine cancer with metastasis to the lungs, who presented with severe sepsis secondary to community-acquired pneumonia complicated by multiorgan system failure including acute kidney injury, thrombocytopenia, severe lactic acidosis, transaminitis, hypoxemic respiratory failure. 1. Neurologic: The patient currently is intubated and sedated with propofol. She is known drug abuser including opiates. At present time, possibility of opiates withdrawal cannot be ruled out. However, the patient is intubated and will be put on fentanyl drip and propofol for the patient's comfort. 2. Pulmonary: The patient has severe hypoxemia and severe community-acquired pneumonia. At present time, we will continue with protective lung ventilation strategy, tidal volume 4 to 8 mL per predicted body weight as well as plateau pressure less than 30. We will continue with sedation and if need be neuromuscular blockade. Once the patient is fluid resuscitated and pressors are weaned off, conservative fluid and oxygen management will be instituted. Head of bed elevated at >35 degrees. Oral hygiene, deep venous thrombosis/gastrointestinal prophylaxis as a part of ventilator-associated pneumonia bundle. Community-acquired pneumonia will be aggressively treated. As the patient is in severe sepsis, broad-spectrum antibiotics will be initiated. Sputum, blood and urine culture will be sent. Urine for Legionella and streptococcal antigen will be sent as well. Procalcitonin will be ordered as well. Will maintain SI 0.95- 1.05, driving pressure <15 3. Cardiovascular: Patient's BNP is elevated. She is in severe lactic acidosis, signifying global tissue hypoperfusion. We will continue with IV fluids resuscitation, levo/vaso/stress dose steroids. IVC on US<2 cm and collapses >50%, 2L NS bolus was given with improved urine output. Formal Echocardiogram will be done. Troponin will be trended. The patient has atrial fibrillation with rapid ventricular response, which likely has multifactorial component including severe sepsis as one of the contributing factors. Echocardiogram will allow to rule out intracranial pathology. If adequate sedation will not be able to bring heart rate down, Cardizem drip will be started (provided that blood pressure holds). The patient was started on therapeutic anticoagulation for stroke prevention by primary team. 4. Gastrointestinal: At present time, the patient will be n.p.o. and on gastrointestinal prophylaxis until fluid resuscitation done. 5. Infectious Disease: The patient has severe community-acquired pneumonia, complicated by severe sepsis and multiorgan system failure. The patient is intubated and currently receives supportive mechanical ventilation. Septic workup including sputum, urine and blood culture was ordered. The patient received Zosyn and vancomycin in the emergency room. Infectious Disease consult is pending. Procalcitonin was ordered as well. Urine for Legionella and streptococcal antigen were ordered. The patient is at risk for multidrug-resistant pathogen as she recently received chemotherapy. 6. Endocrine: The patient has borderline low blood glucose with Accu-Chek 66. We will continue with normal saline D5 and Accu-Chek every 4 hours to avoid hypoglycemia. We will maintain blood glucose within 140 to 180 range according to NICE-SUGAR trial. We will continue with deep venous thrombosis-gastrointestinal prophylaxis. 7. Renal: We will maintain mean arterial pressure more than 65 to avoid hyperchloremia and nephrotoxin, but not at expense of treating underlying disease. We will continue to maintain euvolemia, euglycemia, normothermia and oxygen saturation more than 90%. We will supplement electrolytes aggressively. 8. Hematology: The patient has thrombocytopenia, which is probably multifactorial and most likely relates to combination of chemotherapy, bone marrow suppression by cancer and sepsis. We will maintain platelet count more than 10,000 in the absence of bleeding and any planned procedure. We will maintain hemoglobin level more than 7. On lovenox TAC for stroke prevention in the setting of afib with RVR/sepsis ccm time 40 min Hunter Bhardwaj MD O[facility]
[2018-02-20 23:26] LABS: ARTERIAL BLOOD GAS HCO3 16.7 mmol/L (21-28); ARTERIAL BLOOD GAS O2 SAT 97.8 % (95-98); ARTERIAL BLOOD GAS PCO2 49 mm/Hg (35-45); ARTERIAL BLOOD GAS TCO2 18.2 mmol.L (22-28)
[2018-02-20 23:28] LABS: ARTERIAL BLOOD GAS PH 7.14 (7.35-7.45)
[2018-02-20 23:35] LABS: HEPATITIS C ANTIBODY REACTIVE (NEGATIVE)
[2018-02-21] MEDS ORDERED: Enoxaparin 100 mg Syringe SC SCH (00:30)
[2018-02-21] MEDS: Levalbuterol 0.63 MG/3 ML Inhal Soln UD IH SCH ×2 (03:10→06:56)
[2018-02-21 03:24] LABS: VENOUS BLOOD GAS BASE EXCESS -10.1 mmol/L (0.0-2.0); VENOUS BLOOD GAS PO2 55 mm/Hg (30-55)
[2018-02-21 03:28] LABS: VENOUS BLOOD PH 7.13 (7.32-7.43)
[2018-02-21] MEDS: NOREPINEPHRINE BIT/0.9 % NACL 4 MG/250 ML BAG IV PRN ×3 (03:34→14:38)
[2018-02-21] MEDS ORDERED: Sodium Bicarbonate (8.4%) 50 Meq Syringe IVP ONE ×5 (03:36→17:26)
[2018-02-21] MEDS ORDERED: EPINEPHrine- 1 MG in Sodium Chloride 0.9% 50 ML IV PRN (03:43)
[2018-02-21] MEDS: Dextrose 5%/0.9% NS 1,000 ML IV SCH (04:08)
[2018-02-21 04:22] LABS: ARTERIAL BLOOD GAS HCO3 20.1 mmol/L (21-28); ARTERIAL BLOOD GAS HEMOGLOBIN 10.8 g/dL (11.7-17.4); ARTERIAL BLOOD GAS O2 CAPACITY 15.1 mL/dl (16-24); ARTERIAL BLOOD GAS O2 SAT 99.6 % (95-98); ARTERIAL BLOOD GAS PCO2 48 mm/Hg (35-45); ARTERIAL BLOOD GAS PH 7.23 (7.35-7.45); ARTERIAL BLOOD GAS TCO2 21.6 mmol.L (22-28)
[2018-02-21] MEDS: diltiaZEM IVPB 100mg in NS 100 ML IV PRN (05:56)
[2018-02-21] MEDS: Cisatracurium Besylate 100 MG in Sodium Chloride 0.9% 250 ML IV PRN ×2 (06:45→12:48)
--- NOTE | 2018-02-21 07:56 | RAD ---
HISTORY: intubated COMPARISON: Portable chest 02/20/2018. FINDINGS: LUNGS: Right MediPort and endotracheal tube are unchanged in position. Dense infiltrate at the majority of the right lung is improving slowly. No definite inner left infiltrate. PLEURA: No significant pleural effusion identified, no pneumothorax apparent. CARDIOVASCULAR: Normal. OSSEOUS STRUCTURES: No significant abnormalities. VISUALIZED UPPER ABDOMEN: Normal. OTHER FINDINGS: Mild left hemidiaphragm elevation noted. IMPRESSION: Slowly improving dense right upper greater than lower lobe infiltrates.
[2018-02-21] MEDS: Pantoprazole 40mg/100mL NS 40 MG/100 ML BAG IVPB SCH ×3 (08:30→19:00)
[2018-02-21 08:36] LABS: BASO # 0.02 K/mm3 (0.0-2.0); BASO % 0.1 % (0.0-3.0); GRAN # 22.26 (1.4-6.5); GRAN % 93.8 % (50.0-68.0); HEMOGLOBIN 10.1 g/dL (12.0-16.0); LYMPH # 0.7 (1.2-3.4); LYMPH % 2.8 % (22.0-35.0); MEAN CELL VOLUME 95.8 fl (80.0-105.0); MEAN CORPUSCULAR HEMOGLOBIN 35.2 pg (25.0-35.0); MEAN CORPUSCULAR HGB CONC 36.7 g/dl (31.0-37.0); MEAN PLATELET VOLUME 12.3 fl (7.0-11.0); MONO # 0.8 (0.1-0.6); MONO % 3.3 % (1.0-6.0); RBC 2.87 10^6/uL (3.5-6.1); RED CELL DISTRIBUTION WIDTH 14.1 % (11.5-14.5); WHITE BLOOD COUNT 23.7 10^3/ul (4.5-11.0)
[2018-02-21] MEDS: Midazolam 100 mg/100ml in NS 100 MG/100 ML SOL IV PRN (09:12)
[2018-02-21] MEDS ORDERED: DAPTOmycin 500 mg Inj (Cubicin) IV ONE (09:15)
[2018-02-21] MEDS ORDERED: Albuterol-Ipratrop 3 mg / 0.5 (3 ml) UD IH PRN (09:27)
[2018-02-21 09:30] LABS: ALB/GLOB RATIO 0.7 (1.1-1.8); ALBUMIN 1.8 g/dL (3.0-4.8)
[2018-02-21] MEDS ORDERED: Digoxin 500 mcg/2ml (0.5 mg/2ml) Inj IVP STA (09:35)
[2018-02-21 09:42] VITALS: PULSE 120
[2018-02-21 09:42] LABS: CALCIUM 5.6 mg/dL (8.4-10.5)
[2018-02-21] MEDS: Linezolid 600 mg in D5W 300 ml 600 MG/300 ML BAG IVPB SCH ×2 (09:58→22:01)
[2018-02-21] MEDS ORDERED: EPOPROSTENOL 1.5 MG VIAL IV SCH (10:00)
[2018-02-21] MEDS: Insulin Reg-MEDIUM-Coverage SC SCH ×4 (10:19→21:59)
--- NOTE | 2018-02-21 10:36 | CP.PCM.CON ---
History of Present Illness - History of Present Illness History of Present Illness: 53 year old female with PMH of stage 4 uterine cancer with metastases to the bone and lungs S/P hysterectomy, S/P port-a-cath placement, obesity with BMI 33 , GERD, depression, COPD [place] [facility] [place] due to worsening shortness of breath. She apparently was suffering from cough and rhinorrhea for the past few days prior to the ED visit, as well as subjective fevers (as per ED note). She was in severe respiratory distress and was intubated in the ED, put on the ventilator and sent to the ICU. Patient also underwent CXR which showed right sided pneumonia (all lobes). Infectious Diseases consult is requested to further evaluate and manage. ROS is unobtainable because the patient is intubated. Review of Systems - Review of Systems Systems not reviewed;Unavailable: Intubated Past Patient History - Past Medical History & Family History Past Medical History?: Yes - Past Social History Smoking Status: Current Some Days Smoker - CARDIAC Hx Cardiac Disorders: No - PULMONARY Hx Respiratory Disorders: Yes Hx Asthma: Yes Hx Chronic Obstructive Pulmonary Disease (COPD): Yes Hx Lung Cancer: Yes - NEUROLOGICAL Hx Neurological Disorder: No - HEENT Hx HEENT Problems: No - RENAL Hx Chronic Kidney Disease: No - ENDOCRINE/METABOLIC Hx Endocrine Disorders: No - HEMATOLOGICAL/ONCOLOGICAL Hx Blood Disorders: Yes Hx Cancer: Yes Hx Hepatitis B: Yes Hx Hepatitis C: Yes Other/Comment: MRSA abcess on back - INTEGUMENTARY Hx Dermatological Problems: No - MUSCULOSKELETAL/RHEUMATOLOGICAL Hx Musculoskeletal Disorders: No - GASTROINTESTINAL Hx Gastrointestinal Disorders: Yes Hx Gastroesophageal Reflux: Yes - GENITOURINARY/GYNECOLOGICAL Hx Genitourinary Disorders: No - PSYCHIATRIC Hx Psychophysiologic Disorder: Yes Hx Depression: Yes - SURGICAL HISTORY Hx Section: Yes Hx Hysterectomy: Yes Hx Vascular Access Device: Yes (SRI CATH INSERTION X 2 & REMOVAL ) Other/Comment: SPLEENECTOMY 2008 - ANESTHESIA Hx Anesthesia: Yes Hx Anesthesia Reactions: No Hx Malignant Hyperthermia: No Meds Allergies/Adverse Reactions: Allergies Allergy/AdvReac Type Severity Reaction Status Date / Time No Known Allergies Allergy Verified 02/20/18 19:21 - Medications Medications: Current Medications Enoxaparin Sodium (Lovenox) 86 mg SC Q12H LEE ANN PRN Reason: Protocol Hydrocortisone Sodium Succinate (Solu-Cortef) 50 mg IVP Q6 LEE ANN diltiaZEM IVPB 100mg in NS (Cardizem 100mg In Ns) 100 mls @ 5 mls/hr IV .Q20H PRN; Protocol; 5 MG/HR PRN Reason: TITRATE PER MD ORDER Last Admin: 02/20/18 12:33 Dose: 5 mls/hr Propofol (Diprivan) 1,000 mg in 100 mls @ 2.585 mls/hr IV .Q24H PRN; Protocol; 5 MCG/KG/MIN PRN Reason: TITRATE PER MD ORDER Last Admin: 02/20/18 13:33 Dose: 5 mcg/kg/min, 2.585 mls/hr Fentanyl Citrate (Fentanyl Citrate/Sodium Chloride 1 Mg/100 Ml) 1,000 mcg in 100 mls @ 2 mls/hr IV .Q24H PRN; Protocol; 20 MCG/HR PRN Reason: TITRATE PER MD ORDER Last Admin: 02/20/18 14:57 Dose: 20 mcg/hr, 2 mls/hr Doxycycline Hyclate 100 mg/ (Sodium Chloride) 100 mls @ 100 mls/hr IVPB Q12 LEE ANN PRN Reason: Protocol Potassium Chloride (Potassium Chloride 10 Meq/100 Ml) 10 meq in 100 mls @ 50 mls/hr IVPB Q2H LEE ANN Stop: 02/20/18 17:59 Last Admin: 02/20/18 16:24 Dose: 50 mls/hr Dextrose/Sodium Chloride (Dextrose 5%/0.9% Ns 1000 Ml) 1,000 mls @ 150 mls/hr IV .Q6H40M [facility] Acetylcysteine 4,310 mg/ (Dextrose) 521.55 mls @ 125 mls/hr IVPB ONCE ONE Stop: 02/20/18 18:30 Cisatracurium Besylate 100 mg/ (Sodium Chloride) 260 mls @ 13.44 mls/hr IV .[id number] PRN; Protocol; 1 MCG/KG/MIN PRN Reason: TITRATE PER MD ORDER Last Admin: 02/20/18 16:11 Dose: 1 mcg/kg/min, 13.44 mls/hr Midazolam 100 mg/100ml in NS (Midazolam 100 Mg/100ml In Ns) 100 mg in 100 mls @ 1 mls/hr IV .Q24H PRN; Protocol; 1 MG/HR PRN Reason: Sedation Last Titration: 02/20/18 15:20 Dose: 5 mg/hr, 5 mls/hr NOREPINEPHRINE BIT/0.9 % NACL (Levophed 4 Mg/ 250 Ml Ns Premixed) 4 mg in 250 mls @ 15 mls/hr IV .[id number] PRN; Protocol; 4 MCG/MIN PRN Reason: TITRATE PER MD ORDER Last Admin: 02/20/18 15:30 Dose: 4 mcg/min, 15 mls/hr Vasopressin 20 units/ Sodium (Chloride) 101 mls @ 9.09 mls/hr IV .Q11H7M LEE ANN; 0.03 U/MIN PRN Reason: Protocol Last Admin: 02/20/18 16:11 Dose: 9.09 mls/hr Meropenem (Merrem Iv 1 Gm Premix) 50 mls @ 100 mls/hr IVPB Q12 LEE ANN PRN Reason: Protocol Linezolid (Zyvox 600mg/300ml D5w) 600 mg in 300 mls @ 200 mls/hr IVPB Q12 LEE ANN PRN Reason: Protocol Stop: 02/27/18 16:46 Levalbuterol HCl (Xopenex) 0.63 mg IH [id number] LEE ANN Last Admin: 02/20/18 15:56 Dose: Not Given Levalbuterol HCl (Xopenex) 0.63 mg IH Q2 PRN PRN Reason: Wheezing Pantoprazole Sodium (Protonix Inj) 40 mg IVP DAILY LEE ANN Physical Exam - Constitutional Appears: Other (intubated, sedated, on vasopressor support) - ENT Exam Additional comments: Et tube in place - Respiratory Exam Respiratory Exam: Decreased Breath Sounds, Rales (scattered) - Cardiovascular Exam Cardiovascular Exam: Tachycardia, +S1, +S2 - GI/Abdominal Exam GI & Abdominal Exam: Soft. absent: Tenderness Results - Vital Signs Recent Vital Signs: Last Vital Signs Temp 97.9 F 02/20/18 12:55 Pulse 155 H 02/20/18 14:37 Resp 36 H 02/20/18 15:55 BP 100/47 L 02/20/18 16:11 Pulse Ox 95 02/20/18 15:55 - Labs Result Diagrams: 02/21/18 08:30 02/21/18 08:30 Labs: Laboratory Results - last 24 hr 02/20/18 02/20/18 02/20/18 13:45 14:15 14:15 pCO2 33 L pO2 59.0 L HCO3 15.2 L ABG pH 7.27 L ABG Total CO2 16.2 L ABG O2 Saturation 89.9 L ABG Base Excess -10.6 L ABG Potassium 3.0 L VBG pH VBG pCO2 VBG HCO3 VBG Total CO2 VBG O2 Sat (Calc) VBG Base Excess VBG Potassium Sodium 136.0 Chloride 104.0 Glucose 88 Lactate 5.4 H* Mechanical Rate 16 FiO2 100.0 Tidal Volume 400 PEEP 10 GGT Arterial Blood Potassium 3.0 L Venous Blood Potassium Urine Color Dark yellow Urine Appearance Sl cloudy Urine pH 6.0 Ur Specific [place] 1.020 Urine Protein 100 H Urine Glucose (UA) 100 H Urine Ketones Negative Urine Blood Negative Urine Nitrate Negative Urine Bilirubin Moderate H Urine Urobilinogen 2.0 H Ur Leukocyte Esterase Trace H Urine RBC 1 - 3 Urine WBC 10 - 15 Ur Epithelial Cells 6 - 8 Amorphous Sediment Moderate Urine Bacteria Large Fine Granular Casts 0 - 2 Coarse Granular Casts Trace H Urine Other Uyeast Urine HCG, Qual Negative Urine Opiates Screen Positive H Urine Methadone Screen Negative Ur Barbiturates Screen Negative Ur Phencyclidine Scrn Negative Ur Amphetamines Screen Negative U Benzodiazepines Scrn Negative U Oth Cocaine Metabols Negative U Cannabinoids Screen Negative 02/20/18 02/20/18 14:15 15:47 pCO2 pO2 163 H HCO3 ABG pH ABG Total CO2 ABG O2 Saturation ABG Base Excess ABG Potassium VBG pH 7.26 L VBG pCO2 35.0 L VBG HCO3 15.7 L VBG Total CO2 16.8 L VBG O2 Sat (Calc) 99.9 H VBG Base Excess -10.4 L VBG Potassium 3.1 L Sodium 136.0 Chloride 105.0 Glucose 93 Lactate 4.7 H* Mechanical Rate FiO2 21.0 Tidal Volume PEEP GGT 85 H Arterial Blood Potassium Venous Blood Potassium 3.1 L Urine Color Urine Appearance Urine pH Ur Specific [place] Urine Protein Urine Glucose (UA) Urine Ketones Urine Blood Urine Nitrate Urine Bilirubin Urine Urobilinogen Ur Leukocyte Esterase Urine RBC Urine WBC Ur Epithelial Cells Amorphous Sediment Urine Bacteria Fine Granular Casts Coarse Granular Casts Urine Other Urine HCG, Qual Urine Opiates Screen Urine Methadone Screen Ur Barbiturates Screen Ur Phencyclidine Scrn Ur Amphetamines Screen U Benzodiazepines Scrn U Oth Cocaine Metabols U Cannabinoids Screen Assessment & Plan - Assessment and Plan (Free Text) Plan: Assessment Septic shock with multiorgan failure (acute encephalopathy, ventilator- dependent respiratory failure, acute renal failure) due to right sided severe healthcare-associated pneumonia, now also with gram positive cocci in chains bacteremia R/O port infection stage 4 uterine cancer with metastases to the bone and lungs S/P hysterectomy S/P port-a-cath placement obesity with BMI 33 GERD depression COPD Plan Started the patient on Zyvox, Merrem and Doxycycline and gave a dose of IV Daptomycin pending identification and sensitivities of the bacteria in the blood will also order 2D echo, ultrasound duplex of the port area to rule out DVT will repeat blood cx tomorrow will check CPK reviewed CXR overall prognosis is poor discussed with medical team (ie. Dr. Lei's team)
[2018-02-21 11:20] LABS: BASO # 0.02 K/mm3 (0.0-2.0); BASO % 0.1 % (0.0-3.0); GRAN % 90.6 % (50.0-68.0); HEMOGLOBIN 9.2 g/dL (12.0-16.0); LYMPH % 4.3 % (22.0-35.0); MEAN CELL VOLUME 98.9 fl (80.0-105.0); MEAN CORPUSCULAR HEMOGLOBIN 34.8 pg (25.0-35.0); MEAN CORPUSCULAR HGB CONC 35.2 g/dl (31.0-37.0); MEAN PLATELET VOLUME 12.3 fl (7.0-11.0); MONO # 1.2 (0.1-0.6); RBC 2.64 10^6/uL (3.5-6.1); RED CELL DISTRIBUTION WIDTH 14.6 % (11.5-14.5); WHITE BLOOD COUNT 23.2 10^3/ul (4.5-11.0)
[2018-02-21 11:51] LABS: CK MB% 0.8 % (2.5-3.0); CK-MB 54.4 ng/mL (0.0-3.6)
[2018-02-21] MEDS ORDERED: Sodium Chloride 0.9% 1,000 ML IV STA (12:19)
[2018-02-21] MEDS: Fentanyl 1000mcg/100ml NS 1,000 MCG/100 ML BAG IV PRN (12:21)
[2018-02-21 13:05] LABS: ARTERIAL BLOOD GAS HEMOGLOBIN 6.9 g/dL (11.7-17.4); ARTERIAL BLOOD GAS O2 CAPACITY 9.7 mL/dl (16-24); ARTERIAL BLOOD GAS O2 SAT 92.8 % (95-98); ARTERIAL BLOOD GAS PCO2 44 mm/Hg (35-45)
[2018-02-21 13:08] LABS: ARTERIAL BLOOD GAS PH < 6.80 (7.35-7.45)
[2018-02-21] MEDS ORDERED: Sodium Bicarbonate 8.4% 150 MEQ in Dextrose 5% In Water 1,000 ML IV SCH (13:15)
[2018-02-21 13:25] LABS: ARTERIAL BLOOD GAS O2 SAT 91.7 % (95-98); ARTERIAL BLOOD GAS PCO2 45 mm/Hg (35-45)
[2018-02-21 13:28] LABS: ARTERIAL BLOOD GAS PH < 6.80 (7.35-7.45)
[2018-02-21] MEDS: Albuterol-Ipratrop 3 mg / 0.5 (3 ml) UD IH SCH ×2 (13:44→19:50)
[2018-02-21] MEDS: Meropenem IV 1 gm in NS 50 ML IVPB SCH ×2 (13:53→22:00)
[2018-02-21] MEDS ORDERED: Levalbuterol 0.63 MG/3 ML Inhal Soln UD IH SCH (14:00)
--- NOTE | 2018-02-21 15:29 | PN ---
DATE: 02/21/2018 SUBJECTIVE: The patient is seen and examined at bedside. She is on neuromuscular blockade and sedation (fentanyl 20 mcg per hour, Versed 4 mg per hour, Nimbex 1 mcg/kg per minute. She is on norepinephrine 30 mcg/minute. She is on Landon-Synephrine 100 mcg/minute). She is on vasopressin 0.03 units per minute. She is on Cardizem of 5 mg/hour and she is on Protonix drip 8 mg/hour. The patient is on VAC, 350/35/16/80% (FiO2 went down from 100% to 80%); on that setting, her oxygen saturation is 90%. Her end-tidal CO2 on the monitor was 39. Her stress index was 0.921. Her driving pressure is 12. PHYSICAL EXAMINATION: VITAL SIGNS: Blood pressure is 113/42, heart rate 126 (appears to be regular). BIS is 14 (we will start tapering down sedation) and she is 4/4; however, she still not overbreathing on vent. HEENT: Head and neck atraumatic. LUNGS: A few rales, wheezes bilaterally. HEART: Regular rate and rhythm. S1, S2 distant. ABDOMEN: Soft, nontender, nondistended. MUSCULOSKELETAL: Trace bilateral pedal and ankle edema. NEUROLOGIC: The patient is sedated and paralyzed (NMB). SKIN: Moist. PSYCHIATRIC: The patient is sedated and paralyzed (NMB). LABORATORY DATA: Blood culture positive for gram-positive cocci in chains, 4/4 bottles. Sodium 140, potassium 4, chloride 104, carbon dioxide 16, BUN 58, creatinine 0.8, glucose 310, AST 98, ALT 52, total bilirubin 3.4. Procalcitonin is 17.09. WBC 23.7, hemoglobin 10.1, platelet count 83. Chest x-ray showed fairly unchanged right upper and middle lobe infiltrate. MEDICATIONS: Tylenol IV (the patient had a high fever up to 105, cooling blankets and ice packs actually in groin area. Provided besides Tylenol). The patient completed course of n-acetylcysteine, Cardizem, daptomycin, D5 normal saline at 150 mL/hour, doxycycline, fentanyl, hydrocortisone 50 mg IV every 6 hours, regular insulin sliding scale medium protocol, Xopenex every 2 hours p.r.n. and every 6 hours on standing basis, meropenem, Nimbex drip, norepinephrine, Landon-Synephrine, Protonix, vasopressin, Versed, and Zyvox. ASSESSMENT AND PLAN: This is a 53-year-old lady with stage IV uterine cancer with metastases to the neck, lymph nodes and lungs who presented with septic shock secondary to community-acquired pneumonia, most likely secondary to Streptococcus pneumonia (BC positive for GPC in chains) complicated by septicemia, acute kidney injury, hypoxemic respiratory failure, severe lactic acidosis, transaminitis. Neurology: The patient is sedated on Versed, fentanyl and was put on neuromuscular blockade to improve the patient ventilator synchrony. Her BIS is very low, we will start tapering down her sedation. Pulmonary: The patient is on volume control with strict low tidal volume ventilation, 6 mL per predicted body weight with plateau pressure currently 28. Stress index is 0.95. Driving pressure 12. We will continue with head of bed elevated more then 35 degrees. Oral hygiene, DVT and GI prophylaxis. Treatment of severe community-acquired pneumonia. Once shock resolves, we will proceed with conservative fluid management. At present time, we are tapering down FiO2 and the patient had FiO2 down to 80% from 100%. We will continue with permissive hypercapnia, the patient's pH substantially improved. Cardiovascular: The patient is in distributive shock. She is on norepinephrine and phenylephrine (afib with RVR). We will start tapering norepinephrine down. The patient is on vasopressin and stress dose steroids. The patient received 2 liters of normal saline yesterday and currently is on D5 normal saline at 150 mL/hour. The patient appears to be euvolemic. GI: The patient's transaminitis substantially improved. Bilirubin has trended down. The patient received two n-acetylcysteine yesterday. The patient had episode of coffee-ground vomiting. Protonix drip started, therapeutic anticoagulation held. GI consult pending. The patient will be n.p.o. until requires less pressors to avoid bowel ischemia. Endocrine: We will maintain blood glucose within 140-180 range. If 2 or 3 readings of Accu-Chek remains above 250, we will start insulin drip. ID: The patient had 4/4 bottles with GPC in chains, most likely signifying Strep pneumoniae, (which is most likely pathogens in the current clinical scenario). The patient is on linezolid, meropenem, daptomycin, doxycycline. ID is following her. Procalcitonin is highly elevated, which goes along with clinical scenario and septic shock. Sputum culture is pending. Urine for Legionella and streptococcal antigen are pending. Renal: Maintain MAP>65, u/o improved, creatinine improved, avoid hyperchloremia and nephrotoxins Hematology: The patient had upper GI bleed and therapeutic anticoagulation was stopped. Platelets is slightly recovering. Most likely, anemia relates to bone marrow suppression as well as upper GI bleed. We will maintain hemoglobin above 8 and currently is 10 (drop down from 15.3). Dr. Garcia saw the patient yesterday and will be following her from Hematology/Oncology point of view. The patient received chemotherapy about 1 week ago. We will continue to maintain euvolemia, euglycemia, normothermia and oxygen saturation more than 90%. The patient is on cooling blanket, IV Tylenol and we will get ice packs in the groin and axillary areas. We will continue with maintaining O2 saturation more than 90%. We will continue with mechanical DVT prophylaxis and GI prophylaxis. Addendum: After initial signs of improvement (earlier in am), patients clinical course deteriorated later in a day 1. Sedation and NMB stopped, but patient is not responsive to painful stimuli. Patient is on 100%fi02 and PEEP 18 with borderline oxygenation-->too risky to transfer for CT of the head presently, however, when more stable will do CTH cheng. Even positive findings, unlikely to change room attendant-->patient is too unstable 2. Repeated ABG-->severe lactic acidosis; 2 ampules of bicarb given, IVF switched to bicarb drip. Bolus 2L NS given, BP somewhat improved, neosynephrine weaned off, cardizem drip stopped, HR 60-100; EKG aflutter. 3. Hb dropped down to 6.7 from 9.2. INR above 3, plat count 56-->DIC? upper GI bleed: 3 PRBC, 4 FFP and 1 bag of plats are given, will repeat CBC and coags. Protonix drip continued. Too unstable for CTAP (see above). ccm time 40 min Hunter Bhardwaj MD MTDD
--- NOTE | 2018-02-21 15:41 | CARD ---
APPROVED REPORT EKG Measurement Heart [id number] <Conclusion> Atrial fibrillation with rapid ventricular response NSSTW changes
[2018-02-21 15:50] LABS: BASO # 0.05 K/mm3 (0.0-2.0); BASO % 0.3 % (0.0-3.0); EOS % 0.1 % (1.5-5.0); GRAN # 15.69 (1.4-6.5); GRAN % 82.2 % (50.0-68.0); LYMPH % 10.2 % (22.0-35.0); MEAN CELL VOLUME 104.7 fl (80.0-105.0); MEAN CORPUSCULAR HEMOGLOBIN 35.1 pg (25.0-35.0); MEAN CORPUSCULAR HGB CONC 33.5 g/dl (31.0-37.0); MEAN PLATELET VOLUME 12.8 fl (7.0-11.0); MONO # 1.4 (0.1-0.6); MONO % 7.2 % (1.0-6.0); RBC 1.91 10^6/uL (3.5-6.1); WHITE BLOOD COUNT 19.1 10^3/ul (4.5-11.0)
--- NOTE | 2018-02-21 16:05 | CARD ---
APPROVED REPORT EKG Measurement Heart [id number] <Conclusion> Atrial flutter with variable AV block STTW changes
[2018-02-21 16:06] LABS: HEMOGLOBIN 6.7 g/dL (12.0-16.0)
[2018-02-21] MEDS ORDERED: Dextrose 50% SYRINGE Inj (50 ml) IVP ONE ×2 (16:15→23:16)
[2018-02-21] MEDS ORDERED: Insulin Regular 1 UNITS/0.01 ML ML IV STA (16:15)
[2018-02-21 16:16] LABS: ALB/GLOB RATIO 0.7 (1.1-1.8); ALBUMIN 1.3 g/dL (3.0-4.8); ALT/SGPT 291 U/L (7-56); BLOOD UREA NITROGEN 68 mg/dL (7-21); CALCIUM 5.5 mg/dL (8.4-10.5); GFR AFRICAN-AMERICAN 22; GFR NON-AFRICAN AMERICAN 19
[2018-02-21 16:17] LABS: AST/SGOT 1275 U/L (14-36)
[2018-02-21 16:19] LABS: TROPONIN I 0.47 ng/mL
[2018-02-21 16:24] LABS: ARTERIAL BLOOD GAS PCO2 43 mm/Hg (35-45)
[2018-02-21 16:27] LABS: ARTERIAL BLOOD GAS PH < 6.80 (7.35-7.45)
[2018-02-21] MEDS ORDERED: Dextrose 50% SYRINGE Inj (50 ml) ONE (16:30)
--- NOTE | 2018-02-21 16:40 | CP.PCM.PN ---
Subjective - Date & Time of Evaluation Date of Evaluation: 02/21/18 Time of Evaluation: 16:40 Objective - Vital Signs/Intake and Output Vital Signs (last 24 hours): Temp Pulse Resp BP Pulse Ox 94 F L 76 35 H 111/47 L 74 L 02/21/18 16:20 02/21/18 16:21 02/21/18 16:20 02/21/18 16:20 02/21/18 16:00 Intake and Output: 02/21/18 02/21/18 06:59 18:59 Intake Total 691 1337 Balance 691 1337 - Medications Medications: Current Medications Albuterol/Ipratropium (Duoneb 3 Mg/0.5 Mg (3 Ml) Ud) 3 ml IH [id number] [facility] Last Admin: 02/21/18 13:44 Dose: 3 ml Albuterol/Ipratropium (Duoneb 3 Mg/0.5 Mg (3 Ml) Ud) 3 ml IH Q2H PRN PRN Reason: Shortness of Breath Enoxaparin Sodium (Lovenox) 86 mg SC Q12H LEE ANN PRN Reason: Protocol Last Admin: 02/21/18 00:14 Dose: 86 mg Hydrocortisone Sodium Succinate (Solu-Cortef) 50 mg IVP Q6 LEE ANN Last Admin: 02/21/18 11:25 Dose: 50 mg diltiaZEM IVPB 100mg in NS (Cardizem 100mg In Ns) 100 mls @ 5 mls/hr IV .Q20H PRN; Protocol; 5 MG/HR PRN Reason: TITRATE PER MD ORDER Last Titration: 02/21/18 12:13 Dose: 0 mg/hr, 0 mls/hr Propofol (Diprivan) 1,000 mg in 100 mls @ 2.585 mls/hr IV .Q24H PRN; Protocol; 5 MCG/KG/MIN PRN Reason: TITRATE PER MD ORDER Last Titration: 02/20/18 18:39 Dose: 0 mcg/kg/min, 0 mls/hr Fentanyl Citrate (Fentanyl Citrate/Sodium Chloride 1 Mg/100 Ml) 1,000 mcg in 100 mls @ 2 mls/hr IV .Q24H PRN; Protocol; 20 MCG/HR PRN Reason: TITRATE PER MD ORDER Last Titration: 02/21/18 14:12 Dose: 0 mcg/hr, 0 mls/hr Doxycycline Hyclate 100 mg/ (Sodium Chloride) 100 mls @ 100 mls/hr IVPB Q12 LEE ANN PRN Reason: Protocol Last Admin: 02/21/18 09:57 Dose: 100 mls/hr Cisatracurium Besylate 100 mg/ (Sodium Chloride) 260 mls @ 13.44 mls/hr IV .[id number] PRN; Protocol; 1 MCG/KG/MIN PRN Reason: TITRATE PER MD ORDER Last Titration: 02/21/18 14:10 Dose: 0 mcg/kg/min, 0 mls/hr Midazolam 100 mg/100ml in NS (Midazolam 100 Mg/100ml In Ns) 100 mg in 100 mls @ 1 mls/hr IV .Q24H PRN; Protocol; 1 MG/HR PRN Reason: Sedation Last Titration: 02/21/18 14:12 Dose: 0 mg/hr, 0 mls/hr NOREPINEPHRINE BIT/0.9 % NACL (Levophed 4 Mg/ 250 Ml Ns Premixed) 4 mg in 250 mls @ 15 mls/hr IV .[id number] PRN; Protocol; 4 MCG/MIN PRN Reason: TITRATE PER MD ORDER Last Admin: 02/21/18 14:38 Dose: 20 mcg/min, 75 mls/hr Vasopressin 20 units/ Sodium (Chloride) 101 mls @ 9.09 mls/hr IV .Q11H7M LEE ANN; 0.03 U/MIN PRN Reason: Protocol Last Admin: 02/21/18 13:52 Dose: 9.09 mls/hr Linezolid (Zyvox 600mg/300ml D5w) 600 mg in 300 mls @ 200 mls/hr IVPB Q12 LEE ANN PRN Reason: Protocol Stop: 02/27/18 16:46 Last Admin: 02/21/18 09:58 Dose: 200 mls/hr Acetaminophen (Ofirmev) 1,000 mg in 100 mls @ 400 mls/hr IVPB Q4H PRN PRN Reason: Temperature Stop: 02/23/18 01:04 Last Admin: 02/21/18 09:00 Dose: 400 mls/hr Phenylephrine HCl 40 mg/ (Sodium Chloride) 254 mls @ 38.1 mls/hr IV .Q6H40M PRN ; Protocol; 100 MCG/MIN PRN Reason: TITRATE PER MD ORDER Last Titration: 02/21/18 14:12 Dose: 0 mcg/min, 0 mls/hr Pantoprazole Sodium (Protonix 40mg Ivpb) 40 mg in 100 mls @ 20 mls/hr IVPB .Q5H LEE ANN Last Admin: 02/21/18 13:01 Dose: 20 mls/hr Meropenem (Merrem Iv 1 Gm Premix) 50 mls @ 100 mls/hr IVPB Q8 LEE ANN PRN Reason: Protocol Last Admin: 02/21/18 13:53 Dose: 100 mls/hr Sodium Bicarbonate 150 meq/ (Dextrose) 1,150 mls @ 150 mls/hr IV .Q7H40M LEE ANN Insulin Human Regular (Humulin R Med) 0 units SC Q4H LEE ANN PRN Reason: Protocol Last Admin: 02/21/18 13:51 Dose: 3 units - Labs Labs: 02/21/18 15:47 02/21/18 15:47 PT 16.5 SECONDS (9.4-12.5) H 02/20/18 11:30 INR 1.42 (0.93-1.08) H 02/20/18 11:30 APTT 67.0 Seconds (25.1-36.5) H 02/21/18 13:30
--- NOTE | 2018-02-21 16:46 | CP.PCM.PN ---
Subjective - Date & Time of Evaluation Date of Evaluation: 02/21/18 Time of Evaluation: 16:44 - Subjective Subjective: Patient seen and examined at bedside. Per nursing no acute events occurred overnight. Patient remains intubated and on pressure support and sedation. Unable to obtain ROS due to patient's current clinical condition. Objective - Vital Signs/Intake and Output Vital Signs (last 24 hours): Temp Pulse Resp BP Pulse Ox 94 F L 76 35 H 111/47 L 74 L 02/21/18 16:20 02/21/18 16:21 02/21/18 16:20 02/21/18 16:20 02/21/18 16:00 Intake and Output: 02/21/18 02/21/18 06:59 18:59 Intake Total 691 1337 Balance 691 1337 - Medications Medications: Current Medications Albuterol/Ipratropium (Duoneb 3 Mg/0.5 Mg (3 Ml) Ud) 3 ml IH [id number] [facility] Last Admin: 02/21/18 13:44 Dose: 3 ml Albuterol/Ipratropium (Duoneb 3 Mg/0.5 Mg (3 Ml) Ud) 3 ml IH Q2H PRN PRN Reason: Shortness of Breath Enoxaparin Sodium (Lovenox) 86 mg SC Q12H LEE ANN PRN Reason: Protocol Last Admin: 02/21/18 00:14 Dose: 86 mg Hydrocortisone Sodium Succinate (Solu-Cortef) 50 mg IVP Q6 [facility] Last Admin: 02/21/18 11:25 Dose: 50 mg diltiaZEM IVPB 100mg in NS (Cardizem 100mg In Ns) 100 mls @ 5 mls/hr IV .Q20H PRN; Protocol; 5 MG/HR PRN Reason: TITRATE PER MD ORDER Last Titration: 02/21/18 12:13 Dose: 0 mg/hr, 0 mls/hr Propofol (Diprivan) 1,000 mg in 100 mls @ 2.585 mls/hr IV .Q24H PRN; Protocol; 5 MCG/KG/MIN PRN Reason: TITRATE PER MD ORDER Last Titration: 02/20/18 18:39 Dose: 0 mcg/kg/min, 0 mls/hr Fentanyl Citrate (Fentanyl Citrate/Sodium Chloride 1 Mg/100 Ml) 1,000 mcg in 100 mls @ 2 mls/hr IV .Q24H PRN; Protocol; 20 MCG/HR PRN Reason: TITRATE PER MD ORDER Last Titration: 02/21/18 14:12 Dose: 0 mcg/hr, 0 mls/hr Doxycycline Hyclate 100 mg/ (Sodium Chloride) 100 mls @ 100 mls/hr IVPB Q12 LEE ANN PRN Reason: Protocol Last Admin: 02/21/18 09:57 Dose: 100 mls/hr Cisatracurium Besylate 100 mg/ (Sodium Chloride) 260 mls @ 13.44 mls/hr IV .H16T12I PRN; Protocol; 1 MCG/KG/MIN PRN Reason: TITRATE PER MD ORDER Last Titration: 02/21/18 14:10 Dose: 0 mcg/kg/min, 0 mls/hr Midazolam 100 mg/100ml in NS (Midazolam 100 Mg/100ml In Ns) 100 mg in 100 mls @ 1 mls/hr IV .Q24H PRN; Protocol; 1 MG/HR PRN Reason: Sedation Last Titration: 02/21/18 14:12 Dose: 0 mg/hr, 0 mls/hr NOREPINEPHRINE BIT/0.9 % NACL (Levophed 4 Mg/ 250 Ml Ns Premixed) 4 mg in 250 mls @ 15 mls/hr IV .[id number] PRN; Protocol; 4 MCG/MIN PRN Reason: TITRATE PER MD ORDER Last Admin: 02/21/18 14:38 Dose: 20 mcg/min, 75 mls/hr Vasopressin 20 units/ Sodium (Chloride) 101 mls @ 9.09 mls/hr IV .Q11H7M LEE ANN; 0.03 U/MIN PRN Reason: Protocol Last Admin: 02/21/18 13:52 Dose: 9.09 mls/hr Linezolid (Zyvox 600mg/300ml D5w) 600 mg in 300 mls @ 200 mls/hr IVPB Q12 LEE ANN PRN Reason: Protocol Stop: 02/27/18 16:46 Last Admin: 02/21/18 09:58 Dose: 200 mls/hr Acetaminophen (Ofirmev) 1,000 mg in 100 mls @ 400 mls/hr IVPB Q4H PRN PRN Reason: Temperature Stop: 02/23/18 01:04 Last Admin: 02/21/18 09:00 Dose: 400 mls/hr Phenylephrine HCl 40 mg/ (Sodium Chloride) 254 mls @ 38.1 mls/hr IV .Q6H40M PRN ; Protocol; 100 MCG/MIN PRN Reason: TITRATE PER MD ORDER Last Titration: 02/21/18 14:12 Dose: 0 mcg/min, 0 mls/hr Pantoprazole Sodium (Protonix 40mg Ivpb) 40 mg in 100 mls @ 20 mls/hr IVPB .Q5H LEE ANN Last Admin: 02/21/18 13:01 Dose: 20 mls/hr Meropenem (Merrem Iv 1 Gm Premix) 50 mls @ 100 mls/hr IVPB Q8 LEE ANN PRN Reason: Protocol Last Admin: 02/21/18 13:53 Dose: 100 mls/hr Sodium Bicarbonate 150 meq/ (Dextrose) 1,150 mls @ 150 mls/hr IV .Q7H40M LEE ANN Insulin Human Regular (Humulin R Med) 0 units SC Q4H LEE ANN PRN Reason: Protocol Last Admin: 02/21/18 13:51 Dose: 3 units Sodium Bicarbonate (Sodium Bicarbonate 8.4% (50 Meq) Syringe) 50 meq IVP ONCE ONE Stop: 02/21/18 16:40 - Labs Labs: 02/21/18 15:47 02/21/18 15:47 PT 16.5 SECONDS (9.4-12.5) H 02/20/18 11:30 INR 1.42 (0.93-1.08) H 02/20/18 11:30 APTT 67.0 Seconds (25.1-36.5) H 02/21/18 13:30 - Head Exam Head Exam: ATRAUMATIC, NORMAL INSPECTION, NORMOCEPHALIC - Eye Exam Eye Exam: absent: EOMI, Periorbital tenderness, PERRL, Scleral icterus Pupil Exam: Irregular, Miosis, Unequal. absent: NORMAL ACCOMODATION - ENT Exam ENT Exam: Mucous Membranes Moist Additional comments: Intubated. - Respiratory Exam Respiratory Exam: Rhonchi. absent: Chest Wall Tenderness, Prolonged Expiratory Phase, Respiratory Distress - Cardiovascular Exam Cardiovascular Exam: REGULAR RHYTHM, +S1, +S2 - GI/Abdominal Exam GI & Abdominal Exam: Soft, Normal Bowel Sounds - Extremities Exam Extremities Exam: Pedal Edema. absent: Joint Swelling - Neurological Exam Neurological Exam: Altered - Skin Skin Exam: Dry, Mottled Assessment and Plan - Assessment and Plan (Free Text) Assessment: 53 year old female with Lung CA, Uterine CA, and asthma admitted with URI symptoms who then required intubation. Plan: Neuro: - Sepsis 2/2 PNA: Intubated; Nimbex, Levophed, Propofol, Versed Drips -Antiobiotic coverage: Zyvox, Doxycycline. -Pancultures ordered .Will f/u with results. -ID consulted. Help apprecicated -Procalcitonin ordered . Will f/u with results. - Maintain normothermia. Cooling blankets for elevated temperatures. Continue to monitor. Pulm: - Possible PNA as above -Legionella ordered. Will f/u with results. - Strep pna - f/u results Cardio: - A-Fib with RVR upon admission -Cardizem drip -Cardiology consulted. Help appreciated. - Elevated BNP: - Maintain MAP > 65 -Echo: showed lv systolic function is normal, mild tricuspid regurgitation. EF : 55%. No valvular lesions appreciated. GI: - Transaminitis: Abd u/s ordered; -Hepatitis panel reactive for Hepatitis C. -GI consulted. Help appreciated - Protonix drip. Renal: - Monitor electrolytes, replte as necessary - Maintain euvolemia Endo - Maintain euglycemia Heme - Thrombocytopenia: monitor - Lovenox for DVT ppx ID: - As Above
[2018-02-21 16:54] LABS: VENOUS BLOOD GAS PO2 154 mm/Hg (30-55)
[2018-02-21 16:59] LABS: VENOUS BLOOD PH < 6.80 (7.32-7.43)
[2018-02-21 17:02] LABS: INR 3.13 (0.93-1.08); PARTIAL THROMBOPLASTIN TIME 92.6 Seconds (25.1-36.5); PROTHROMBIN TIME 36.5 SECONDS (9.4-12.5)
[2018-02-21 17:02] LABS: INR 2.64 (0.93-1.08); PROTHROMBIN TIME 30.7 SECONDS (9.4-12.5)
[2018-02-21] MEDS: Sodium Bicarbonate 8.4% 150 MEQ in Dextrose 5% In Water 1,000 ML IV SCH ×2 (17:22→23:57)
--- NOTE | 2018-02-21 18:23 | CON ---
DATE: 02/21/2018 SUBJECTIVE: The patient is seen lying in bed in the ICU. She is intubated and sedated. History is obtained via the chart. 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 She was also complaining of palpitations. She was noted to be in atrial fibrillation with rapid ventricular response. She had respiratory insufficiency, required intubation. She remains intubated and in atrial fibrillation with a fairly rapid rate. Her blood pressure has been borderline low. PAST MEDICAL HISTORY: Her past history is notable for the problems mentioned above. She reportedly has a history of asthma and depression in the past. There is a questionable history of heroin abuse in the past as well. CURRENT MEDICATIONS: Include IV diltiazem at 5 mg/hour, cisatracurium infusion, IV fluids, Diprivan infusion, doxycycline, DuoNeb inhaler, fentanyl infusion, insulin, Levophed at 4 mcg per minute, subcutaneous Lovenox, meropenem, Protonix infusion, Solu-Cortef, Zyvox and vasopressin infusion. ALLERGIES: REPORTEDLY NONE. SOCIAL HISTORY: She is an active smoker. There is no history of alcohol use in the past. FAMILY HISTORY: Unable to obtain. REVIEW OF SYSTEMS: Also, unable to obtain at this time. PHYSICAL EXAMINATION: GENERAL: She is a chronically ill-appearing, middle-aged woman. VITAL SIGNS: Her blood pressure is 96/50 with a pulse of 130, respirations are 18, rectal temperature of 105 was noted. HEENT: She is orally intubated. NECK: A large firm lymph node is noted in the left supraclavicular region. CHEST: Bilateral scattered rhonchi. HEART: PMI displaced laterally with rhythm irregular regular with tachycardia. Systolic murmur at the left sternal border. ABDOMEN: Soft with bowel sounds present. EXTREMITIES: No edema. DIAGNOSTIC DATA: Potassium is 4.7, calcium is 5.6 with an albumin of 1.8. White count 23.7 with a hemoglobin and hematocrit of 10.1 and 27.5, platelet count is 83,000. Recent blood gas showed pH 7.23, pCO2 of 48, pO2 of 126. BUN and creatinine are 80 and 2.5 with a potassium of 4.7, glucose 292. AST and ALT 387 and 96, alkaline phosphatase 135. Electrocardiogram reveals atrial fibrillation with a rapid ventricular response. Chest x-ray reveals a dense infiltrate on the right. The cardiac silhouette appears normal. Echocardiogram was performed and was a limited study given her supine position on the ventilator. Chamber sizes appeared normal. LV systolic function appeared normal as well. Mild tricuspid regurgitation was present. IMPRESSION: 1. Atrial fibrillation with rapid ventricular response, likely secondary to stress of illness. 2. Metastatic uterine cancer with respiratory failure. Prognosis is extremely poor. 3. Acute renal failure. 4. Thrombocytopenia. 5. Hypocalcemia. 6. Elevated transaminases. RECOMMENDATIONS: Supportive care is appropriate at this time. Despite her renal insufficiency, digoxin loading can be initiated and dose adjusted based upon her renal function for heart rate control. Given her blood pressure, it appears she will not tolerate higher doses of diltiazem infusion. Her overall prognosis is extremely poor. The discussion should be have with her family regarding palliative care measures and a DNR order needs to be discussed. Thank you for this consultation. We will be happy to follow along throughout her hospital course and make further recommendations as appropriate. Maynor Cunningham MD
--- NOTE | 2018-02-21 21:12 | CON ---
DATE: 02/21/2018 GASTROENTEROLOGY CONSULTATION REQUESTING PHYSICIAN: Dr. Lei. REASON FOR CONSULTATION: I have been asked to see this 53-year-old female with a history of uterine cancer with metastasis to the lungs and lymph nodes of the neck who comes to the hospital with increasing shortness of breath, cough productive of whitish sputum for 1 day. In the emergency room, the patient was found to have atrial fibrillation with rapid ventricular rate. Workup also included an x-ray which showed right upper lobe and lower lobe consolidation suspicious for community acquired pneumonia. The patient's white blood cell count also increased raising the concern for septic shock. I have been asked to see this patient because of her liver enzymes were elevated with AST greater than ALT. The patient required intubation for respiratory failure. This morning, the patient vomited small amount of dark red blood and coffee-grounds. She is currently intubated and unable to give any history. PAST MEDICAL HISTORY: Notable for uterine cancer with lung metastasis, asthma, depression, hepatitis C. SOCIAL HISTORY: There is no history of alcohol use. She smokes up to a pack of cigarettes per day. There is a question of heroin use in the past. FAMILY HISTORY: Noncontributory. REVIEW OF SYSTEMS: A 14-point review of systems is unobtainable as the patient is on the ventilator. MEDICATIONS AT HOME: Include Pepcid, fentanyl patch, Singulair, Ventolin, oxycodone, Zoloft and vitamins B and C. PHYSICAL EXAMINATION: GENERAL: Middle-aged female appearing obese, lying in bed on the ventilator. She has her eyes closed. She is nonverbal. VITAL SIGNS: Reveal temperature of 105 rectally this morning, blood pressure 115/48, heart rate of 121. HEENT: Reveal sclerae to be white. Conjunctivae pink. Oral mucosa is dry. She has an endotracheal tube in her mouth. NECK: Supple. She has a 1.5 cm firm lymph node in the left side of her neck. CHEST: Reveal scattered rhonchi bilaterally. HEART: Reveals tachycardia. ABDOMEN: Obese, soft, nontender. EXTREMITIES: Show no edema. LABORATORY DATA: Reveal bicarb of 15, BUN 80, creatinine 2.5. On admission to the hospital, also her AST is 387, ALT 96, alkaline phosphatase 135, total bilirubin of 3.2. This morning, her BUN is down to 58, creatinine 0.8, bicarb is still 16, AST is down to 98, ALT down to 52, alkaline phosphatase down to 24, total bilirubin is 3.4. Her procalcitonin is 17.09. CBC reveals white blood cell count this morning 23.7, hemoglobin 10.1, platelet count of 83,000. Coags reveal PT 16.5, INR 1.42, fibrinogen is 476. Serology show hepatitis C antibody positivity. Urinalysis is positive for opiates. Blood cultures are positive for coag-negative staph as well as staph aureus. Ultrasound of the abdomen showed fatty liver and no evidence of gallstones or biliary dilatation. IMPRESSION: 1. Gram-positive coccemia with bilateral community-acquired pneumonia resulting in respiratory failure. 2. Elevated liver enzymes most likely secondary to sepsis. The patient also has a history of hepatitis C. I do not know if this has been treated in the past. 3. Uterine cancer with lung metastasis and metastasis to lymph node. 4. Acute renal failure. 5. Anemia. 6. Gastrointestinal bleed most likely secondary to stress gastritis. 7. Her overall prognosis is poor given the history of uterine cancer with lung metastasis. RECOMMENDATIONS: 1. Continue broad-spectrum IV antibiotics. 2. Follow liver enzymes. 3. Continue PPI. 4. Follow serial hematocrits. Wood Marshall MD
[2018-02-21 22:44] LABS: BASO # 0.04 K/mm3 (0.0-2.0); BASO % 0.2 % (0.0-3.0); EOS % 0.1 % (1.5-5.0); GRAN # 19.23 (1.4-6.5); GRAN % 89.1 % (50.0-68.0); HEMOGLOBIN 8.1 g/dL (12.0-16.0); LYMPH # 2.1 (1.2-3.4); LYMPH % 9.6 % (22.0-35.0); MEAN CELL VOLUME 99.6 fl (80.0-105.0); MEAN CORPUSCULAR HEMOGLOBIN 33.5 pg (25.0-35.0); MEAN CORPUSCULAR HGB CONC 33.6 g/dl (31.0-37.0); MEAN PLATELET VOLUME 10.5 fl (7.0-11.0); MONO # 0.2 (0.1-0.6); RBC 2.42 10^6/uL (3.5-6.1); RED CELL DISTRIBUTION WIDTH 16.4 % (11.5-14.5); WHITE BLOOD COUNT 21.6 10^3/ul (4.5-11.0)
[2018-02-21 22:50] LABS: INR 1.77 (0.93-1.08); PARTIAL THROMBOPLASTIN TIME 56.9 Seconds (25.1-36.5); PROTHROMBIN TIME 20.4 SECONDS (9.4-12.5)
[2018-02-21 23:00] LABS: ALB/GLOB RATIO 0.9 (1.1-1.8); ALBUMIN 1.9 g/dL (3.0-4.8); CALCIUM 5.5 mg/dL (8.4-10.5)
[2018-02-21] MEDS ORDERED: Insulin Regular 1 UNITS/0.01 ML ML IVP ONE (23:17)
[2018-02-22] MEDS: NOREPINEPHRINE BIT/0.9 % NACL 4 MG/250 ML BAG IV PRN (00:18)
[2018-02-22] MEDS: Pantoprazole 40mg/100mL NS 40 MG/100 ML BAG IVPB SCH ×3 (01:00→10:50)
[2018-02-22] MEDS ORDERED: Albuterol 0.083% Inhal Sol (2.5 mg/3 mL) UD INH STA (01:17)
[2018-02-22] MEDS: Insulin Reg-MEDIUM-Coverage SC SCH ×2 (01:30→05:44)
[2018-02-22] MEDS: Albuterol-Ipratrop 3 mg / 0.5 (3 ml) UD IH SCH ×3 (01:45→14:09)
[2018-02-22] MEDS ORDERED: Sod Polystyrene Sulf 15 gm/60 ml Susp PR ONE (02:18)
[2018-02-22] MEDS: Meropenem IV 1 gm in NS 50 ML IVPB SCH (05:30)
[2018-02-22 06:46] LABS: BASO # 0.04 K/mm3 (0.0-2.0); BASO % 0.2 % (0.0-3.0); GRAN # 22.84 (1.4-6.5); GRAN % 91.8 % (50.0-68.0); LYMPH # 1.3 (1.2-3.4); LYMPH % 5.3 % (22.0-35.0); MEAN CELL VOLUME 98.3 fl (80.0-105.0); MEAN CORPUSCULAR HEMOGLOBIN 33.3 pg (25.0-35.0); MEAN CORPUSCULAR HGB CONC 33.9 g/dl (31.0-37.0); MEAN PLATELET VOLUME 9.9 fl (7.0-11.0); MONO # 0.7 (0.1-0.6); MONO % 2.7 % (1.0-6.0); RBC 2.4 10^6/uL (3.5-6.1); WHITE BLOOD COUNT 24.9 10^3/ul (4.5-11.0)
[2018-02-22 07:18] LABS: INR 1.69 (0.93-1.08); PARTIAL THROMBOPLASTIN TIME 47.8 Seconds (25.1-36.5); PROTHROMBIN TIME 19.7 SECONDS (9.4-12.5)
[2018-02-22 07:35] LABS: ALBUMIN 2.5 g/dL (3.0-4.8); CALCIUM 5.2 mg/dL (8.4-10.5)
[2018-02-22] MEDS ORDERED: Insulin Regular 1 UNITS/0.01 ML ML SC STA (07:35)
[2018-02-22] MEDS ORDERED: Dextrose 50% SYRINGE Inj (50 ml) IVP ONE ×2 (07:35→14:15)
[2018-02-22 07:48] LABS: ARTERIAL BLOOD GAS HEMOGLOBIN 7.5 g/dL (11.7-17.4); ARTERIAL BLOOD GAS O2 CAPACITY 10.4 mL/dl (16-24); ARTERIAL BLOOD GAS O2 SAT 96.5 % (95-98); ARTERIAL BLOOD GAS PCO2 46 mm/Hg (35-45); ARTERIAL BLOOD GAS TCO2 9.6 mmol.L (22-28)
[2018-02-22 08:08] LABS: ARTERIAL BLOOD GAS HCO3 8.2 mmol/L (21-28); ARTERIAL BLOOD GAS PH 6.86 (7.35-7.45)
--- NOTE | 2018-02-22 08:26 | CP.PCM.PN ---
Subjective - Date & Time of Evaluation Date of Evaluation: 02/22/18 Time of Evaluation: 07:00 - Subjective Subjective: Doing poorly in ICU. Intubated. Chart reviewed. RSR now. V/S noted. RSR PE: Lungs: decreased BS right side Cor:S1S2 Abd: obese Ext: + edema Neuro: sedated I/O= 7027/15 recorded Labs and ABGs noted: H/H =8/23.6, WBC= 24,900, PlCt= 90,000, K+= 7.4, ca++= 5.2 BC X2 _ GPC CXR noted. Not read yet. White out right lung Echo report noted. Objective - Vital Signs/Intake and Output Vital Signs (last 24 hours): Temp Pulse Resp BP Pulse Ox 92.8 F L 87 35 H 117/38 L 74 L 02/21/18 18:47 02/22/18 03:00 02/21/18 18:47 02/22/18 00:26 02/21/18 16:00 Intake and Output: 02/22/18 02/22/18 06:59 18:59 Intake Total 230 Balance 230 - Medications Medications: Current Medications Albuterol/Ipratropium (Duoneb 3 Mg/0.5 Mg (3 Ml) Ud) 3 ml IH [id number] Last Admin: 02/22/18 01:45 Dose: 3 ml Albuterol/Ipratropium (Duoneb 3 Mg/0.5 Mg (3 Ml) Ud) 3 ml IH Q2H PRN PRN Reason: Shortness of Breath Enoxaparin Sodium (Lovenox) 86 mg SC Q12H LEE ANN PRN Reason: Protocol Last Admin: 02/21/18 00:14 Dose: 86 mg Hydrocortisone Sodium Succinate (Solu-Cortef) 50 mg IVP Q6 LEE ANN Last Admin: 02/22/18 05:29 Dose: 50 mg diltiaZEM IVPB 100mg in NS (Cardizem 100mg In Ns) 100 mls @ 5 mls/hr IV .Q20H PRN; Protocol; 5 MG/HR PRN Reason: TITRATE PER MD ORDER Last Titration: 02/21/18 12:13 Dose: 0 mg/hr, 0 mls/hr Propofol (Diprivan) 1,000 mg in 100 mls @ 2.585 mls/hr IV .Q24H PRN; Protocol; 5 MCG/KG/MIN PRN Reason: TITRATE PER MD ORDER Last Titration: 02/20/18 18:39 Dose: 0 mcg/kg/min, 0 mls/hr Fentanyl Citrate (Fentanyl Citrate/Sodium Chloride 1 Mg/100 Ml) 1,000 mcg in 100 mls @ 2 mls/hr IV .Q24H PRN; Protocol; 20 MCG/HR PRN Reason: TITRATE PER MD ORDER Last Titration: 02/21/18 14:12 Dose: 0 mcg/hr, 0 mls/hr Doxycycline Hyclate 100 mg/ (Sodium Chloride) 100 mls @ 100 mls/hr IVPB Q12 LEE ANN PRN Reason: Protocol Last Admin: 02/21/18 22:00 Dose: 100 mls/hr Cisatracurium Besylate 100 mg/ (Sodium Chloride) 260 mls @ 13.44 mls/hr IV .[id number] PRN; Protocol; 1 MCG/KG/MIN PRN Reason: TITRATE PER MD ORDER Last Titration: 02/21/18 14:10 Dose: 0 mcg/kg/min, 0 mls/hr Midazolam 100 mg/100ml in NS (Midazolam 100 Mg/100ml In Ns) 100 mg in 100 mls @ 1 mls/hr IV .Q24H PRN; Protocol; 1 MG/HR PRN Reason: Sedation Last Titration: 02/21/18 14:12 Dose: 0 mg/hr, 0 mls/hr NOREPINEPHRINE BIT/0.9 % NACL (Levophed 4 Mg/ 250 Ml Ns Premixed) 4 mg in 250 mls @ 15 mls/hr IV .[id number] PRN; Protocol; 4 MCG/MIN PRN Reason: TITRATE PER MD ORDER Last Titration: 02/22/18 01:20 Dose: 10 mcg/min, 37.5 mls/hr Vasopressin 20 units/ Sodium (Chloride) 101 mls @ 9.09 mls/hr IV .Q11H7M LEE ANN; 0.03 U/MIN PRN Reason: Protocol Last Admin: 02/22/18 00:26 Dose: 9.09 mls/hr Linezolid (Zyvox 600mg/300ml D5w) 600 mg in 300 mls @ 200 mls/hr IVPB Q12 LEE ANN PRN Reason: Protocol Stop: 02/27/18 16:46 Last Admin: 02/21/18 22:01 Dose: 200 mls/hr Acetaminophen (Ofirmev) 1,000 mg in 100 mls @ 400 mls/hr IVPB Q4H PRN PRN Reason: Temperature Stop: 02/23/18 01:04 Last Admin: 02/21/18 09:00 Dose: 400 mls/hr Phenylephrine HCl 40 mg/ (Sodium Chloride) 254 mls @ 38.1 mls/hr IV .Q6H40M PRN ; Protocol; 100 MCG/MIN PRN Reason: TITRATE PER MD ORDER Last Titration: 02/21/18 14:12 Dose: 0 mcg/min, 0 mls/hr Pantoprazole Sodium (Protonix 40mg Ivpb) 40 mg in 100 mls @ 20 mls/hr IVPB .Q5H LEE ANN Last Admin: 02/22/18 05:26 Dose: 20 mls/hr Meropenem (Merrem Iv 1 Gm Premix) 50 mls @ 100 mls/hr IVPB Q8 LEE ANN PRN Reason: Protocol Last Admin: 02/22/18 05:30 Dose: 100 mls/hr Sodium Bicarbonate 150 meq/ (Dextrose) 1,150 mls @ 150 mls/hr IV .Q7H40M LEE ANN Last Admin: 02/21/18 23:57 Dose: 150 mls/hr Insulin Human Regular (Humulin R Med) 0 units SC Q4H LEE ANN PRN Reason: Protocol Last Admin: 02/22/18 05:44 Dose: 3 units - Labs Labs: 02/22/18 06:33 02/22/18 06:33 PT 19.7 SECONDS (9.4-12.5) H 02/22/18 06:33 INR 1.69 (0.93-1.08) H 02/22/18 06:33 APTT 47.8 Seconds (25.1-36.5) H 02/22/18 06:33 Assessment and Plan - Assessment and Plan (Free Text) Assessment: AF with RVR > RSR now Metastatic Uterine cancer Acute Renal Failure with hyperkalemia Hypocalcemia Thrombocytopenia Abn. LFTs Smoker H/O Asthma Depression Plan: DNR/DNI was rescinded yesterday. [place] extremely poor. Hold dig for now. AB Kayexelate, etc, for hyperkalemia As per Intensivists, ID, GI, Palliative Care, Renal
[2018-02-22] MEDS: Sodium Bicarbonate 8.4% 150 MEQ in Dextrose 5% In Water 1,000 ML IV SCH (08:29)
--- NOTE | 2018-02-22 08:31 | RAD ---
HISTORY: intubated COMPARISON: 02/21/2018 FINDINGS: LUNGS: No significant change in the dense alveolar infiltrate in the right lung. Endotracheal tube in satisfactory position PLEURA: No significant pleural effusion identified, no pneumothorax apparent. CARDIOVASCULAR: Normal. OSSEOUS STRUCTURES: No significant abnormalities. VISUALIZED UPPER ABDOMEN: Normal. OTHER FINDINGS: None. IMPRESSION: No significant change in the dense alveolar infiltrate in the right lung. Endotracheal tube in satisfactory position
[2018-02-22] MEDS ORDERED: Vancomycin 2 GM in Sodium Chloride 0.9% 500 ML IVPB ONE (08:40)
[2018-02-22 08:47] VITALS: TEMP 98.2
[2018-02-22] MEDS ORDERED: Meropenem 500 MG in Sodium Chloride 0.9% 50 ML IVPB SCH (10:00)
--- NOTE | 2018-02-22 10:04 | CP.PCM.CON ---
History of Present Illness - History of Present Illness History of Present Illness: Palliative consult requested by Reason: Goals of care 53 year old female with history of metastatic uterine cancer who presented on 02/20/18 with dyspnea, cough and palpitations. EKG showed A Fib with RVR. She became hypoxic and was intubated in the ED. Transfered to ICU; Intubated, vasopressors, worsening LUNA and LFT's. Labs;WBC 23.8, Hgb 7.8, Plt 121,NA 142, NA 7.3, BUN 69, Creat.17, calc 5.1, AST 30031, ALT 1816, Alk Phos 174, LDH 27557, TCK 144.0. Vital Signs: P 56, BP 100/60, T 99.1 PMHx: Uterine cancer metastatic to lung, bone,asthma Social History: Smoker, drug,alcohol use unknown. Lives with her brother, Yonatan Adair. Family History: Unknown. Advance Care Planning: The patient does not have an Advanced Directive. Review of Systems: As per HPI, intubated unable to obtain. Past Patient History - Past Medical History & Family History Past Medical History?: Yes - Past Social History Smoking Status: Current Some Days Smoker - CARDIAC Hx Cardiac Disorders: No - PULMONARY Hx Respiratory Disorders: Yes Hx Asthma: Yes Hx Chronic Obstructive Pulmonary Disease (COPD): Yes Hx Lung Cancer: Yes - NEUROLOGICAL Hx Neurological Disorder: No - HEENT Hx HEENT Problems: No - RENAL Hx Chronic Kidney Disease: No - ENDOCRINE/METABOLIC Hx Endocrine Disorders: No - HEMATOLOGICAL/ONCOLOGICAL Hx Blood Disorders: Yes Hx Cancer: Yes Hx Hepatitis B: Yes Hx Hepatitis C: Yes Other/Comment: MRSA abcess on back - INTEGUMENTARY Hx Dermatological Problems: No - MUSCULOSKELETAL/RHEUMATOLOGICAL Hx Musculoskeletal Disorders: No - GASTROINTESTINAL Hx Gastrointestinal Disorders: Yes Hx Gastroesophageal Reflux: Yes - GENITOURINARY/GYNECOLOGICAL Hx Genitourinary Disorders: No - PSYCHIATRIC Hx Psychophysiologic Disorder: Yes Hx Depression: Yes - SURGICAL HISTORY Hx Section: Yes Hx Hysterectomy: Yes Hx Vascular Access Device: Yes (SRI CATH INSERTION X 2 & REMOVAL ) Other/Comment: SPLEENECTOMY 2008 - ANESTHESIA Hx Anesthesia: Yes Hx Anesthesia Reactions: No Hx Malignant Hyperthermia: No Meds Allergies/Adverse Reactions: Allergies Allergy/AdvReac Type Severity Reaction Status Date / Time No Known Allergies Allergy Verified 02/20/18 19:21 - Medications Medications: Current Medications Albuterol/Ipratropium (Duoneb 3 Mg/0.5 Mg (3 Ml) Ud) 3 ml [facility]H [id number] Last Admin: 02/22/18 09:23 Dose: 3 ml Albuterol/Ipratropium (Duoneb 3 Mg/0.5 Mg (3 Ml) Ud) 3 ml IH Q2H PRN PRN Reason: Shortness of Breath Enoxaparin Sodium (Lovenox) 86 mg SC Q12H LEE ANN PRN Reason: Protocol Last Admin: 02/21/18 00:14 Dose: 86 mg Hydrocortisone Sodium Succinate (Solu-Cortef) 50 mg IVP Q6 LEE ANN Last Admin: 02/22/18 05:29 Dose: 50 mg diltiaZEM IVPB 100mg in NS (Cardizem 100mg In Ns) 100 mls @ 5 mls/hr IV .Q20H PRN; Protocol; 5 MG/HR PRN Reason: TITRATE PER MD ORDER Last Titration: 02/21/18 12:13 Dose: 0 mg/hr, 0 mls/hr Propofol (Diprivan) 1,000 mg in 100 mls @ 2.585 mls/hr IV .Q24H PRN; Protocol; 5 MCG/KG/MIN PRN Reason: TITRATE PER MD ORDER Last Titration: 02/20/18 18:39 Dose: 0 mcg/kg/min, 0 mls/hr Fentanyl Citrate (Fentanyl Citrate/Sodium Chloride 1 Mg/100 Ml) 1,000 mcg in 100 mls @ 2 mls/hr IV .Q24H PRN; Protocol; 20 MCG/HR PRN Reason: TITRATE PER MD ORDER Last Titration: 02/21/18 14:12 Dose: 0 mcg/hr, 0 mls/hr Doxycycline Hyclate 100 mg/ (Sodium Chloride) 100 mls @ 100 mls/hr IVPB Q12 LEE ANN PRN Reason: Protocol Last Admin: 02/21/18 22:00 Dose: 100 mls/hr Cisatracurium Besylate 100 mg/ (Sodium Chloride) 260 mls @ 13.44 mls/hr IV .[id number] PRN; Protocol; 1 MCG/KG/MIN PRN Reason: TITRATE PER MD ORDER Last Titration: 02/21/18 14:10 Dose: 0 mcg/kg/min, 0 mls/hr Midazolam 100 mg/100ml in NS (Midazolam 100 Mg/100ml In Ns) 100 mg in 100 mls @ 1 mls/hr IV .Q24H PRN; Protocol; 1 MG/HR PRN Reason: Sedation Last Titration: 02/21/18 14:12 Dose: 0 mg/hr, 0 mls/hr NOREPINEPHRINE BIT/0.9 % NACL (Levophed 4 Mg/ 250 Ml Ns Premixed) 4 mg in 250 mls @ 15 mls/hr IV .[id number] PRN; Protocol; 4 MCG/MIN PRN Reason: TITRATE PER MD ORDER Last Titration: 02/22/18 01:20 Dose: 10 mcg/min, 37.5 mls/hr Vasopressin 20 units/ Sodium (Chloride) 101 mls @ 9.09 mls/hr IV .Q11H7M LEE ANN; 0.03 U/MIN PRN Reason: Protocol Last Admin: 02/22/18 00:26 Dose: 9.09 mls/hr Linezolid (Zyvox 600mg/300ml D5w) 600 mg in 300 mls @ 200 mls/hr IVPB Q12 LEE ANN PRN Reason: Protocol Stop: 02/27/18 16:46 Last Admin: 02/21/18 22:01 Dose: 200 mls/hr Acetaminophen (Ofirmev) 1,000 mg in 100 mls @ 400 mls/hr IVPB Q4H PRN PRN Reason: Temperature Stop: 02/23/18 01:04 Last Admin: 02/21/18 09:00 Dose: 400 mls/hr Phenylephrine HCl 40 mg/ (Sodium Chloride) 254 mls @ 38.1 mls/hr IV .Q6H40M PRN ; Protocol; 100 MCG/MIN PRN Reason: TITRATE PER MD ORDER Last Titration: 02/21/18 14:12 Dose: 0 mcg/min, 0 mls/hr Pantoprazole Sodium (Protonix 40mg Ivpb) 40 mg in 100 mls @ 20 mls/hr IVPB .Q5H LEE ANN Last Admin: 02/22/18 05:26 Dose: 20 mls/hr Sodium Bicarbonate 150 meq/ (Dextrose) 1,150 mls @ 150 mls/hr IV .Q7H40M LEE ANN Last Admin: 02/22/18 08:29 Dose: 150 mls/hr Meropenem 500 mg/ Sodium (Chloride) 50 mls @ 100 mls/hr IVPB Q12 LEE ANN PRN Reason: Protocol Stop: 03/01/18 10:01 Vancomycin HCl 2 gm/ Sodium (Chloride) 500 mls @ 170 mls/hr IVPB ONCE ONE PRN Reason: Protocol Stop: 02/22/18 11:36 Calcium Gluconate 1,000 mg/ (Dextrose) 110 mls @ 110 mls/hr IVPB ONCE ONE Stop: 02/22/18 10:20 Insulin Human Regular (Humulin R Med) 0 units SC Q4H LEE ANN PRN Reason: Protocol Last Admin: 02/22/18 05:44 Dose: 3 units Physical Exam - Constitutional Appears: Cachectic, Chronically Ill - Head Exam Head Exam: NORMOCEPHALIC - Eye Exam Eye Exam: Normal appearance, PERRL - ENT Exam ENT Exam: Mucous Membranes Moist - Neck Exam Additional comments: large firm lypmph node left supraclavicular area - Respiratory Exam Respiratory Exam: Decreased Breath Sounds - Cardiovascular Exam Cardiovascular Exam: Tachycardia, Irregular Rhythm, +S1, +S2 - GI/Abdominal Exam GI & Abdominal Exam: Diminished Bowel Sounds, Soft - Exam Additional comments: oliguric - Extremities Exam Additional comments: edematous - Skin Skin Exam: Dry, Pallor - Additional Findings Additional findings: Palliatives performance scale rating 10 % Results - Vital Signs Recent Vital Signs: Last Vital Signs Temp 98.2 F 02/22/18 06:00 Pulse 77 02/22/18 08:32 Resp 35 H 02/21/18 18:47 BP 132/89 02/22/18 08:14 Pulse Ox 74 L 02/21/18 16:00 - Labs Result Diagrams: 02/22/18 11:20 02/22/18 11:00 Labs: Laboratory Results - last 24 hr 02/21/18 02/21/18 02/21/18 06:30 08:01 08:30 WBC RBC Hgb Hct MCV MCH MCHC RDW Plt Count MPV Gran % Lymph % (Auto) [place] % (Auto) Eos % (Auto) Baso % (Auto) Gran # Lymph # (Auto) [place] # (Auto) Eos # (Auto) Baso # (Auto) PT INR APTT pCO2 pO2 HCO3 ABG pH ABG Total CO2 ABG O2 Saturation ABG O2 Content ABG Base Excess ABG Hemoglobin ABG Carboxyhemoglobin POC ABG HHb (Measured) ABG Methemoglobin ABG O2 Capacity ABG Potassium VBG pH VBG pCO2 VBG Total CO2 VBG O2 Sat (Calc) VBG Potassium Hgb O2 Saturation Sodium Chloride Glucose Lactate Mechanical Rate FiO2 Tidal Volume PEEP Potassium Carbon Dioxide Anion Gap BUN Creatinine Est GFR ( Amer) Est GFR (Non-Af Amer) POC Glucose (mg/dL) 332 H Random Glucose Calcium 5.6 L* Phosphorus Magnesium Total Bilirubin AST ALT Alkaline Phosphatase Total Creatine Kinase 6894 H CK-MB (CK-2) 54.4 H CK-MB (CK-2) % 0.8 L Troponin I Total Protein Albumin Globulin Albumin/Globulin Ratio Arterial Blood Potassium Venous Blood Potassium Ur L.pneumophila Ag Blood Type Blood Type Confirm Antibody Screen Crossmatch BBK History Checked 02/21/18 02/21/18 02/21/18 08:30 08:50 10:30 WBC RBC Hgb Hct MCV MCH MCHC RDW Plt Count MPV Gran % Lymph % (Auto) [place] % (Auto) Eos % (Auto) Baso % (Auto) Gran # Lymph # (Auto) [place] # (Auto) Eos # (Auto) Baso # (Auto) PT INR APTT pCO2 pO2 HCO3 ABG pH ABG Total CO2 ABG O2 Saturation ABG O2 Content ABG Base Excess ABG Hemoglobin ABG Carboxyhemoglobin POC ABG HHb (Measured) ABG Methemoglobin ABG O2 Capacity ABG Potassium VBG pH VBG pCO2 VBG Total CO2 VBG O2 Sat (Calc) VBG Potassium Hgb O2 Saturation Sodium Chloride Glucose Lactate Mechanical Rate FiO2 Tidal Volume PEEP Potassium Carbon Dioxide Anion Gap BUN Creatinine Est GFR ( Amer) Est GFR (Non-Af Amer) POC Glucose (mg/dL) Random Glucose Calcium Phosphorus Magnesium Total Bilirubin AST ALT Alkaline Phosphatase Total Creatine Kinase CK-MB (CK-2) CK-MB (CK-2) % Troponin I Total Protein Albumin Globulin Albumin/Globulin Ratio Arterial Blood Potassium Venous Blood Potassium Ur L.pneumophila Ag Negative Blood Type B POSITIVE Blood Type Confirm B POSITIVE Antibody Screen Negative Crossmatch See Detail BBK History Checked No verified bt 02/21/18 02/21/18 02/21/18 11:00 11:39 13:00 WBC 23.2 H RBC 2.64 L Hgb 9.2 L Hct 26.1 L MCV 98.9 D MCH 34.8 MCHC 35.2 RDW 14.6 H Plt Count 79 L MPV 12.3 H Gran % 90.6 H Lymph % (Auto) 4.3 L [place] % (Auto) 5.0 Eos % (Auto) 0.0 L Baso % (Auto) 0.1 Gran # 21.00 H Lymph # (Auto) 1.0 L [place] # (Auto) 1.2 H Eos # (Auto) 0.0 Baso # (Auto) 0.02 PT INR APTT pCO2 44 pO2 80.0 HCO3 ABG pH < 6.80 L* ABG Total CO2 ABG O2 Saturation 92.8 L ABG O2 Content 9.0 L ABG Base Excess ABG Hemoglobin 6.9 L ABG Carboxyhemoglobin 1.3 POC ABG HHb (Measured) 7.1 H ABG Methemoglobin 0.7 ABG O2 Capacity 9.7 L ABG Potassium VBG pH VBG pCO2 VBG Total CO2 VBG O2 Sat (Calc) VBG Potassium Hgb O2 Saturation 90.9 L Sodium Chloride Glucose Lactate Mechanical Rate FiO2 80.0 Tidal Volume PEEP Potassium Carbon Dioxide Anion Gap BUN Creatinine Est GFR ( Amer) Est GFR (Non-Af Amer) POC Glucose (mg/dL) 214 H Random Glucose Calcium Phosphorus Magnesium Total Bilirubin AST ALT Alkaline Phosphatase Total Creatine Kinase CK-MB (CK-2) CK-MB (CK-2) % Troponin I Total Protein Albumin Globulin Albumin/Globulin Ratio Arterial Blood Potassium Venous Blood Potassium Ur L.pneumophila Ag Blood Type Blood Type Confirm Antibody Screen Crossmatch BBK History Checked 02/21/18 02/21/18 02/21/18 13:20 13:30 15:47 WBC 19.1 H RBC 1.91 L Hgb 6.7 L* D Hct 20.0 L* MCV 104.7 D MCH 35.1 H MCHC 33.5 RDW 16.0 H Plt Count 56 L MPV 12.8 H Gran % 82.2 H Lymph % (Auto) 10.2 L [place] % (Auto) 7.2 H Eos % (Auto) 0.1 L Baso % (Auto) 0.3 Gran # 15.69 H Lymph # (Auto) 2.0 [place] # (Auto) 1.4 H Eos # (Auto) 0.0 Baso # (Auto) 0.05 PT 30.7 H INR 2.64 H APTT 67.0 H pCO2 45 pO2 79.0 L HCO3 ABG pH < 6.80 L* ABG Total CO2 ABG O2 Saturation 91.7 L ABG O2 Content ABG Base Excess ABG Hemoglobin ABG Carboxyhemoglobin POC ABG HHb (Measured) ABG Methemoglobin ABG O2 Capacity ABG Potassium 5.7 H VBG pH VBG pCO2 VBG Total CO2 VBG O2 Sat (Calc) VBG Potassium Hgb O2 Saturation Sodium 137.0 Chloride 106.0 Glucose 176 H Lactate 12.7 H* Mechanical Rate 35 FiO2 80.0 Tidal Volume 350 PEEP 16 Potassium Carbon Dioxide Anion Gap BUN Creatinine Est GFR ( Amer) Est GFR (Non-Af Amer) POC Glucose (mg/dL) Random Glucose Calcium Phosphorus Magnesium Total Bilirubin AST ALT Alkaline Phosphatase Total Creatine Kinase CK-MB (CK-2) CK-MB (CK-2) % Troponin I Total Protein Albumin Globulin Albumin/Globulin Ratio Arterial Blood Potassium 5.7 H Venous Blood Potassium Ur L.pneumophila Ag Blood Type Blood Type Confirm Antibody Screen Crossmatch BBK History Checked 02/21/18 02/21/18 02/21/18 15:47 16:15 16:15 WBC RBC Hgb Hct MCV MCH MCHC RDW Plt Count MPV Gran % Lymph % (Auto) [place] % (Auto) Eos % (Auto) Baso % (Auto) Gran # Lymph # (Auto) [place] # (Auto) Eos # (Auto) Baso # (Auto) PT INR APTT pCO2 43 pO2 61.0 L HCO3 ABG pH < 6.80 L* ABG Total CO2 ABG O2 Saturation 84.0 L ABG O2 Content ABG Base Excess ABG Hemoglobin ABG Carboxyhemoglobin POC ABG HHb (Measured) ABG Methemoglobin ABG O2 Capacity ABG Potassium 6.9 H* VBG pH VBG pCO2 VBG Total CO2 VBG O2 Sat (Calc) VBG Potassium Hgb O2 Saturation Sodium 143 137.0 Chloride 111 H 109.0 H Glucose 144 H Lactate 15.5 H* Mechanical Rate 35 FiO2 100.0 Tidal Volume 350 PEEP 18 Potassium 6.6 H* D Carbon Dioxide < 5 L D Anion Gap 34 H BUN 68 H Creatinine 2.7 H Est GFR ( Amer) 22 Est GFR (Non-Af Amer) 19 POC Glucose (mg/dL) 158 H Random Glucose 139 H Calcium 5.5 L* Phosphorus Magnesium Total Bilirubin 2.4 H AST 1275 H ALT 291 H Alkaline Phosphatase 84 Total Creatine Kinase CK-MB (CK-2) CK-MB (CK-2) % Troponin I 0.47 H* D Total Protein 3.1 L Albumin 1.3 L Globulin 1.9 Albumin/Globulin Ratio 0.7 L Arterial Blood Potassium 6.9 H* Venous Blood Potassium Ur L.pneumophila Ag Blood Type Blood Type Confirm Antibody Screen Crossmatch BBK History Checked 02/21/18 02/21/18 02/21/18 16:48 16:48 20:10 WBC RBC Hgb Hct MCV MCH MCHC RDW Plt Count MPV Gran % Lymph % (Auto) [place] % (Auto) Eos % (Auto) Baso % (Auto) Gran # Lymph # (Auto) [place] # (Auto) Eos # (Auto) Baso # (Auto) PT 36.5 H INR 3.13 H APTT 92.6 H pCO2 pO2 154 H HCO3 ABG pH ABG Total CO2 ABG O2 Saturation ABG O2 Content ABG Base Excess ABG Hemoglobin ABG Carboxyhemoglobin POC ABG HHb (Measured) ABG Methemoglobin ABG O2 Capacity ABG Potassium VBG pH < 6.80 L* VBG pCO2 41.0 VBG Total CO2 TEST NOT PERFORMED VBG O2 Sat (Calc) 100.1 H VBG Potassium 6.9 H* Hgb O2 Saturation Sodium 135.0 Chloride 107.0 Glucose 301 H Lactate 16.6 H* Mechanical Rate FiO2 21.0 Tidal Volume PEEP Potassium Carbon Dioxide Anion Gap BUN Creatinine Est GFR ( Amer) Est GFR (Non-Af Amer) POC Glucose (mg/dL) 223 H Random Glucose Calcium Phosphorus Magnesium Total Bilirubin AST ALT Alkaline Phosphatase Total Creatine Kinase CK-MB (CK-2) CK-MB (CK-2) % Troponin I Total Protein Albumin Globulin Albumin/Globulin Ratio Arterial Blood Potassium Venous Blood Potassium 6.9 H* Ur L.pneumophila Ag Blood Type Blood Type Confirm Antibody Screen Crossmatch BBK History Checked 02/21/18 02/21/18 02/21/18 22:33 22:33 22:33 WBC 21.6 H RBC 2.42 L Hgb 8.1 L Hct 24.1 L MCV 99.6 D MCH 33.5 MCHC 33.6 RDW 16.4 H Plt Count 73 L MPV 10.5 Gran % 89.1 H Lymph % (Auto) 9.6 L [place] % (Auto) 1.0 Eos % (Auto) 0.1 L Baso % (Auto) 0.2 Gran # 19.23 H Lymph # (Auto) 2.1 [place] # (Auto) 0.2 Eos # (Auto) 0.0 Baso # (Auto) 0.04 PT 20.4 H INR 1.77 H APTT 56.9 H pCO2 pO2 HCO3 ABG pH ABG Total CO2 ABG O2 Saturation ABG O2 Content ABG Base Excess ABG Hemoglobin ABG Carboxyhemoglobin POC ABG HHb (Measured) ABG Methemoglobin ABG O2 Capacity ABG Potassium VBG pH VBG pCO2 VBG Total CO2 VBG O2 Sat (Calc) VBG Potassium Hgb O2 Saturation Sodium 142 Chloride 106 Glucose Lactate Mechanical Rate FiO2 Tidal Volume PEEP Potassium 7.2 H* Carbon Dioxide 9 L D Anion Gap 36 H BUN 67 H Creatinine 2.9 H Est GFR ( Amer) 21 Est GFR (Non-Af Amer) 17 POC Glucose (mg/dL) Random Glucose 193 H Calcium 5.5 L* Phosphorus Magnesium Total Bilirubin 2.6 H AST 4983 H ALT 734 H Alkaline Phosphatase 105 Total Creatine Kinase CK-MB (CK-2) CK-MB (CK-2) % Troponin I Total Protein 3.9 L Albumin 1.9 L Globulin 2.1 Albumin/Globulin Ratio 0.9 L Arterial Blood Potassium Venous Blood Potassium Ur L.pneumophila Ag Blood Type Blood Type Confirm Antibody Screen Crossmatch BBK History Checked 02/22/18 02/22/18 02/22/18 01:56 05:40 06:33 WBC RBC Hgb Hct MCV MCH MCHC RDW Plt Count MPV Gran % Lymph % (Auto) [place] % (Auto) Eos % (Auto) Baso % (Auto) Gran # Lymph # (Auto) [place] # (Auto) Eos # (Auto) Baso # (Auto) PT INR APTT pCO2 pO2 HCO3 ABG pH ABG Total CO2 ABG O2 Saturation ABG O2 Content ABG Base Excess ABG Hemoglobin ABG Carboxyhemoglobin POC ABG HHb (Measured) ABG Methemoglobin ABG O2 Capacity ABG Potassium VBG pH VBG pCO2 VBG Total CO2 VBG O2 Sat (Calc) VBG Potassium Hgb O2 Saturation Sodium Chloride Glucose Lactate Mechanical Rate FiO2 Tidal Volume PEEP Potassium Carbon Dioxide Anion Gap BUN Creatinine Est GFR ( Amer) Est GFR (Non-Af Amer) POC Glucose (mg/dL) 245 H 244 H Random Glucose Calcium Phosphorus 17.9 H Magnesium 2.8 H Total Bilirubin AST ALT Alkaline Phosphatase Total Creatine Kinase CK-MB (CK-2) CK-MB (CK-2) % Troponin I Total Protein Albumin Globulin Albumin/Globulin Ratio Arterial Blood Potassium Venous Blood Potassium Ur L.pneumophila Ag Blood Type Blood Type Confirm Antibody Screen Crossmatch BBK History Checked 02/22/18 02/22/18 02/22/18 06:33 06:33 06:33 WBC 24.9 H RBC 2.40 L Hgb 8.0 L Hct 23.6 L MCV 98.3 MCH 33.3 MCHC 33.9 RDW 17.0 H Plt Count 90 L MPV 9.9 Gran % 91.8 H Lymph % (Auto) 5.3 L [place] % (Auto) 2.7 Eos % (Auto) 0.0 L Baso % (Auto) 0.2 Gran # 22.84 H Lymph # (Auto) 1.3 [place] # (Auto) 0.7 H Eos # (Auto) 0.0 Baso # (Auto) 0.04 PT 19.7 H INR 1.69 H APTT 47.8 H pCO2 pO2 HCO3 ABG pH ABG Total CO2 ABG O2 Saturation ABG O2 Content ABG Base Excess ABG Hemoglobin ABG Carboxyhemoglobin POC ABG HHb (Measured) ABG Methemoglobin ABG O2 Capacity ABG Potassium VBG pH VBG pCO2 VBG Total CO2 VBG O2 Sat (Calc) VBG Potassium Hgb O2 Saturation Sodium 143 Chloride 101 Glucose Lactate Mechanical Rate FiO2 Tidal Volume PEEP Potassium 7.4 H* Carbon Dioxide 9 L Anion Gap 40 H BUN 67 H Creatinine Est GFR ( Amer) Est GFR (Non-Af Amer) POC Glucose (mg/dL) Random Glucose 210 H Calcium 5.2 L* Phosphorus Magnesium Total Bilirubin 3.8 H AST ALT 1564 H Alkaline Phosphatase 159 H D Total Creatine Kinase CK-MB (CK-2) CK-MB (CK-2) % Troponin I Total Protein 4.9 L Albumin 2.5 L Globulin 2.4 Albumin/Globulin Ratio 1.0 L Arterial Blood Potassium Venous Blood Potassium Ur L.pneumophila Ag Blood Type Blood Type Confirm Antibody Screen Crossmatch BBK History Checked 02/22/18 02/22/18 07:44 09:20 WBC RBC Hgb Hct MCV MCH MCHC RDW Plt Count MPV Gran % Lymph % (Auto) [place] % (Auto) Eos % (Auto) Baso % (Auto) Gran # Lymph # (Auto) [place] # (Auto) Eos # (Auto) Baso # (Auto) PT INR APTT pCO2 46 H pO2 75.0 L HCO3 8.2 L* ABG pH 6.86 L* ABG Total CO2 9.6 L ABG O2 Saturation 96.5 ABG O2 Content 10.0 L ABG Base Excess -23.8 L ABG Hemoglobin 7.5 L ABG Carboxyhemoglobin 1.6 H POC ABG HHb (Measured) 3.4 ABG Methemoglobin 1.2 ABG O2 Capacity 10.4 L ABG Potassium VBG pH VBG pCO2 VBG Total CO2 VBG O2 Sat (Calc) VBG Potassium Hgb O2 Saturation 93.9 L Sodium Chloride Glucose Lactate Mechanical Rate FiO2 100.0 Tidal Volume PEEP Potassium Carbon Dioxide Anion Gap BUN Creatinine Est GFR ( Amer) Est GFR (Non-Af Amer) POC Glucose (mg/dL) 256 H Random Glucose Calcium Phosphorus Magnesium Total Bilirubin AST ALT Alkaline Phosphatase Total Creatine Kinase CK-MB (CK-2) CK-MB (CK-2) % Troponin I Total Protein Albumin Globulin Albumin/Globulin Ratio Arterial Blood Potassium Venous Blood Potassium Ur L.pneumophila Ag Blood Type Blood Type Confirm Antibody Screen Crossmatch BBK History Checked Assessment & Plan - Assessment and Plan (Free Text) Assessment: 53 year old female with history of metastatic uterine cancer who is admitted with sepsis, respiratory failure, hepatorenal failure, A Fib with RVR, thrombocytopenia and hypotension. Patients brother Ed and stepson at bedside. Family aware of patient's medical condition and extremely poor prognosis. Family has decided to proceed with terminal extubation. They are awaiting other family members to visit before proceeding.Terminal extubation process and end of life care explained. Questions answered. Psychosocial support provided. Family requesting spiritual blessing, shift supervisor melting called. DNR/DNI, terminal extubation directive signed by family. Extubation process explained. Time spent with family in goals of care discussion and end of life counseling, 50 minutes Plan: [place] of care/advance care planning, end of life counseling DNR/DNI, terminal extubation Discontinue all lab testing, discontinue imaging studies, discontinue all medications, discontinue ventilator support. Morphine 4 mg IV now, Morphine 2 mg as needed for pain/dyspnea
--- NOTE | 2018-02-22 11:08 | PN ---
DATE: 02/22/2018 SUBJECTIVE: The patient remains in ICU, intubated. She has become anuric. Her liver enzymes have also increased with an AST of 4983 late last night with an ALT this morning of 1564. Her BUN and creatinine are up to 67 and 3.1. Her platelet count yesterday afternoon was 56,000. There is no report of any GI bleeding. Her troponins yesterday were elevated at 0.47. Vital signs reveal blood pressure of 132/89, heart rate of 78. She is on Levophed and phenylephrine IV. PHYSICAL EXAMINATION: GENERAL: Obese female, intubated, sedated, lying in bed. VITAL SIGNS: Reveal she is afebrile, heart rate of 82, blood pressure of 117/38. HEENT: Reveals sclerae to be white. Conjunctivae pale. She has an ET tube in her mouth. NECK: Supple. She has a 1.5 cm node in her left neck. CHEST: Reveals scattered rhonchi. HEART: Reveals a regular rate and rhythm. ABDOMEN: Soft, nontender. SKIN: She has numerous ecchymotic areas throughout her abdomen and legs. EXTREMITIES: Show no edema. LABORATORY DATA: Reveal BUN 58, creatinine 0.8. AST of 1564, ALT yesterday was 4983, total bilirubin this morning is 3.8, BUN 67, creatinine 3.1. CBC reveals hemoglobin of 8, white blood cell count of 24.9, platelet count of 90,000. IMPRESSION: A 53-year-old female admitted to the hospital with sepsis, multilobar pneumonia, gram-positive coccemia, which turned out to be Staphylococcus aureus and coag-negative Staphylococcus with multisystem organ failure including acute renal failure with anuria, elevated liver enzymes, most likely secondary to shock liver. The patient was hypotensive with a blood pressure of 80 on arrival to the emergency room and respiratory failure secondary to multilobar pneumonia. She does have uterine cancer with metastasis to the lungs and lymph node in the neck. She also has a history of hepatitis C. Her prognosis is extremely poor. RECOMMENDATIONS: 1. Supportive care. 2. Consider palliative care with possible hospice. 3. Consider stopping meropenem as this can cause liver toxicity. Wood Marshall MD
[2018-02-22] MEDS ORDERED: Enoxaparin 100 mg Syringe SC SCH (11:09)
[2018-02-22 11:29] LABS: INR 1.91 (0.93-1.08); PARTIAL THROMBOPLASTIN TIME 48.1 Seconds (25.1-36.5); PROTHROMBIN TIME 22.2 SECONDS (9.4-12.5)
[2018-02-22 11:31] LABS: ALBUMIN 2.4 g/dL (3.0-4.8); CALCIUM 5.1 mg/dL (8.4-10.5)
[2018-02-22 11:37] LABS: BASO # 0.05 K/mm3 (0.0-2.0); BASO % 0.2 % (0.0-3.0); GRAN # 21.9 (1.4-6.5); HEMOGLOBIN 7.8 g/dL (12.0-16.0); LYMPH # 1.3 (1.2-3.4); LYMPH % 5.3 % (22.0-35.0); MEAN CELL VOLUME 100.4 fl (80.0-105.0); MEAN CORPUSCULAR HEMOGLOBIN 34.1 pg (25.0-35.0); MEAN CORPUSCULAR HGB CONC 33.9 g/dl (31.0-37.0); MEAN PLATELET VOLUME 12.1 fl (7.0-11.0); MONO # 0.6 (0.1-0.6); MONO % 2.5 % (1.0-6.0); RBC 2.29 10^6/uL (3.5-6.1); RED CELL DISTRIBUTION WIDTH 17.7 % (11.5-14.5); WHITE BLOOD COUNT 23.8 10^3/ul (4.5-11.0)
--- NOTE | 2018-02-22 12:31 | CP.PCM.PN ---
Subjective - Date & Time of Evaluation Date of Evaluation: 02/22/18 Time of Evaluation: 08:40 - Subjective Subjective: Continues to be on the ventilator, not responsive, has eechymotic lesions all over her body, now is hypothermic. Objective - Vital Signs/Intake and Output Vital Signs (last 24 hours): Temp Pulse Resp BP Pulse Ox 92.8 F L 77 35 H 132/89 74 L 02/21/18 18:47 02/22/18 08:32 02/21/18 18:47 02/22/18 08:14 02/21/18 16:00 Intake and Output: 02/22/18 02/22/18 06:59 18:59 Intake Total 230 Balance 230 - Medications Medications: Current Medications Albuterol/Ipratropium (Duoneb 3 Mg/0.5 Mg (3 Ml) Ud) 3 ml IH [id number] [facility] Last Admin: 02/22/18 01:45 Dose: 3 ml Albuterol/Ipratropium (Duoneb 3 Mg/0.5 Mg (3 Ml) Ud) 3 ml IH Q2H PRN PRN Reason: Shortness of Breath Enoxaparin Sodium (Lovenox) 86 mg SC Q12H LEE ANN PRN Reason: Protocol Last Admin: 02/21/18 00:14 Dose: 86 mg Hydrocortisone Sodium Succinate (Solu-Cortef) 50 mg IVP Q6 [facility] Last Admin: 02/22/18 05:29 Dose: 50 mg diltiaZEM IVPB 100mg in NS (Cardizem 100mg In Ns) 100 mls @ 5 mls/hr IV .Q20H PRN; Protocol; 5 MG/HR PRN Reason: TITRATE PER MD ORDER Last Titration: 02/21/18 12:13 Dose: 0 mg/hr, 0 mls/hr Propofol (Diprivan) 1,000 mg in 100 mls @ 2.585 mls/hr IV .Q24H PRN; Protocol; 5 MCG/KG/MIN PRN Reason: TITRATE PER MD ORDER Last Titration: 02/20/18 18:39 Dose: 0 mcg/kg/min, 0 mls/hr Fentanyl Citrate (Fentanyl Citrate/Sodium Chloride 1 Mg/100 Ml) 1,000 mcg in 100 mls @ 2 mls/hr IV .Q24H PRN; Protocol; 20 MCG/HR PRN Reason: TITRATE PER MD ORDER Last Titration: 02/21/18 14:12 Dose: 0 mcg/hr, 0 mls/hr Doxycycline Hyclate 100 mg/ (Sodium Chloride) 100 mls @ 100 mls/hr IVPB Q12 LEE ANN PRN Reason: Protocol Last Admin: 02/21/18 22:00 Dose: 100 mls/hr Cisatracurium Besylate 100 mg/ (Sodium Chloride) 260 mls @ 13.44 mls/hr IV .[id number] PRN; Protocol; 1 MCG/KG/MIN PRN Reason: TITRATE PER MD ORDER Last Titration: 02/21/18 14:10 Dose: 0 mcg/kg/min, 0 mls/hr Midazolam 100 mg/100ml in NS (Midazolam 100 Mg/100ml In Ns) 100 mg in 100 mls @ 1 mls/hr IV .Q24H PRN; Protocol; 1 MG/HR PRN Reason: Sedation Last Titration: 02/21/18 14:12 Dose: 0 mg/hr, 0 mls/hr NOREPINEPHRINE BIT/0.9 % NACL (Levophed 4 Mg/ 250 Ml Ns Premixed) 4 mg in 250 mls @ 15 mls/hr IV .[id number] PRN; Protocol; 4 MCG/MIN PRN Reason: TITRATE PER MD ORDER Last Titration: 02/22/18 01:20 Dose: 10 mcg/min, 37.5 mls/hr Vasopressin 20 units/ Sodium (Chloride) 101 mls @ 9.09 mls/hr IV .Q11H7M LEE ANN; 0.03 U/MIN PRN Reason: Protocol Last Admin: 02/22/18 00:26 Dose: 9.09 mls/hr Linezolid (Zyvox 600mg/300ml D5w) 600 mg in 300 mls @ 200 mls/hr IVPB Q12 LEE ANN PRN Reason: Protocol Stop: 02/27/18 16:46 Last Admin: 02/21/18 22:01 Dose: 200 mls/hr Acetaminophen (Ofirmev) 1,000 mg in 100 mls @ 400 mls/hr IVPB Q4H PRN PRN Reason: Temperature Stop: 02/23/18 01:04 Last Admin: 02/21/18 09:00 Dose: 400 mls/hr Phenylephrine HCl 40 mg/ (Sodium Chloride) 254 mls @ 38.1 mls/hr IV .Q6H40M PRN ; Protocol; 100 MCG/MIN PRN Reason: TITRATE PER MD ORDER Last Titration: 02/21/18 14:12 Dose: 0 mcg/min, 0 mls/hr Pantoprazole Sodium (Protonix 40mg Ivpb) 40 mg in 100 mls @ 20 mls/hr IVPB .Q5H [facility] Last Admin: 02/22/18 05:26 Dose: 20 mls/hr Sodium Bicarbonate 150 meq/ (Dextrose) 1,150 mls @ 150 mls/hr IV .Q7H40M [facility] Last Admin: 02/22/18 08:29 Dose: 150 mls/hr Meropenem 500 mg/ Sodium (Chloride) 50 mls @ 100 mls/hr IVPB Q12 LEE ANN PRN Reason: Protocol Stop: 03/01/18 10:01 Vancomycin HCl 2 gm/ Sodium (Chloride) 500 mls @ 170 mls/hr IVPB ONCE ONE PRN Reason: Protocol Stop: 02/22/18 11:36 Insulin Human Regular (Humulin R Med) 0 units SC Q4H LEE ANN PRN Reason: Protocol Last Admin: 02/22/18 05:44 Dose: 3 units - Labs Labs: 02/22/18 06:33 02/22/18 06:33 PT 19.7 SECONDS (9.4-12.5) H 02/22/18 06:33 INR 1.69 (0.93-1.08) H 02/22/18 06:33 APTT 47.8 Seconds (25.1-36.5) H 02/22/18 06:33 - Constitutional Appears: Other (intubated, not responsive, on vasopressor support) - ENT Exam Additional comments: ET tube in place - Respiratory Exam Respiratory Exam: Decreased Breath Sounds - Cardiovascular Exam Cardiovascular Exam: +S1, +S2 - GI/Abdominal Exam GI & Abdominal Exam: Soft. absent: Tenderness - Skin Additional comments: multiple ecchymotic lesions all over the body Assessment and Plan - Assessment and Plan (Free Text) Plan: Assessment Septic shock with multiorgan failure (acute encephalopathy, ventilator- dependent respiratory failure, acute renal failure with acute rhabdomyolysis) due to right sided severe healthcare-associated pneumonia, now also with gram positive cocci in chains bacteremia R/O port infection stage 4 uterine cancer with metastases to the bone and lungs S/P hysterectomy S/P port-a-cath placement obesity with BMI 33 GERD depression COPD Plan continue Zyvox, will switch Merrem to Azactam because of increasing transaminitis and hold Doxycycline for now; gave a dose of IV Daptomycin yesterday but will hold off because of the rhabdomyolysis and give Vancomycin 25 mg/kg tody pending identification and sensitivities of the bacteria in the blood; follow up repeat blood cx follow up 2D echo, ultrasound duplex of the port area to rule out DVT reviewed CXR overall prognosis is poor discussed with Dr. Marshall (GI) and Dr. Avendano (Renal)
[2018-02-22 12:50] LABS: URIC ACID 16.5 mg/dL (2.5-6.2)
--- NOTE | 2018-02-22 13:14 | PN ---
DATE: 02/22/2018 SUBJECTIVE: The patient is seen and examined at bedside. She is off of sedation; however, she is not responding to painful stimuli. She is intubated. She is on volume assist control 350 /35/18/100%. She is not initiating breath. Her plateau pressure is 30, peak pressure 38 (she is wheezing a little bit on exam, we are going to give her nebulizer treatment). Chest x-ray did not show any pneumothorax; however, worsening of lobar pneumonia on the right side. Stress index is 0.92. ABG is pending. The patient is on bicarbonate drip 150 mL/hr, Protonix drip, norepinephrine 10 mcg/minute, vasopressin 0.03 units/minute. OBJECTIVE: VITAL SIGNS: Blood pressure 110/30, heart rate 84, end-tidal CO2 on the monitor 33. ENT: Head and neck atraumatic. There is lymphadenopathy in the left supraclavicular area representing metastatic disease. HEART: Regular rate and rhythm. S1, S2 distant. ABDOMEN: Soft, does not appear to be tender, not distended. LUNGS: A few wheezes on the left side. Decreased breath sounds on the right side. MUSCULOSKELETAL: A 1+ to 2+ bilateral pedal and ankle edema. NEUROLOGICAL: The patient does not appear to be moving spontaneously. SKIN: Moist. PSYCHIATRIC: Patient is not responsive to painful stimuli. The patient has right pupil somewhat more dilated than the left lung. LABORATORY DATA: WBC 24.9, hemoglobin 8, platelet count 19. Sodium 143, potassium 7.4 (1 gram of calcium and 10 units of insulin as well as D50 bolus was given. Nephrology consult is pending. BUN 67, creatinine is pending. Calcium 5.2, albumin 2.5, carbon dioxide 9 (the patient is on bicarbonate drip). MEDICATIONS: Tylenol IV, DuoNeb p.r.n. and every 6 hours, doxycycline, hydrocortisone 50 mg IV every 6 hours, meropenem, norepinephrine, Protonix drip, bicarbonate drip, vasopressin, Zyvox. DATA: Chest x-ray showed worsening of the right lobar pneumonia, left lung appears to be clear. ASSESSMENT AND PLAN: This is a 53-year-old lady with stage IV uterine cancer with metastasis to the lung and lymph nodes in the neck, who presented with septic shock secondary to Gram-positive cocci in chains, bacteremia and likely pneumonia complicated by multiorgan system failure with progression of the DIC, worsening of shock, acute kidney injury, "shock" liver, septic encephalopathy. Neuro: I am concerned about intracranial acute pathology, especially in the setting of DIC where ICH is clear possibility. We will have to carefully weigh risks against benefits associated with transferring the patient to CT scan to perform CT of the head. The family opted to proceed with aggressive care for now. We might take a risk and have CT scan of the head done for further prognostication. Meanwhile, the patient is off of sedation, off of neuromuscular blockade for more than 12 hours and she was not seen either spontaneously moving or responding to painful stimuli. Pulmonary: The patient is on 100% FiO2, PEEP 18. Her stress index is 0.82. Her plateau pressure 30, peak pressure a little bit on the high side and the patient will be given bronchodilators more frequently. Chest x-ray did not reveal any pneumothorax. We will continue with protective lung ventilation strategy. Head of bed elevated at more than 35 degrees. Oral hygiene. She does have severe community-acquired pneumonia and has been treated for it. Unfortunately, progresses. Cardiovascular: The patient is in refractory distributive shock, most likely secondary to sepsis. She is on stress dose steroids, vasopressin and norepinephrine at 10 mcg per minute. Her blood pressure is borderline; however, we had mean atrial pressure more than 65. Echocardiogram did not reveal any left ventricular systolic dysfunction. The patient is receiving bicarbonate drip as well. However, remains in severe metabolic acidosis. Renal: The patient has worsening of acute kidney injury, hyperkalemia and severe metabolic acidosis. She received several doses of IV calcium, D50 plus insulin IV. Nephrology consult was requested yesterday and their input is pending. I doubt that she is a candidate for hemodialysis; however, that decision will be deferred to Nephrology Service. She is on bicarbonate drip. ID: The patient appears to be in septic shock secondary to likely streptococcal pneumonia and severe community-acquired pneumonia complicated by septicemia and multiorgan system failure. The patient is on Zyvox, meropenem, doxycycline. ID service is following her as well. She is immunocompromised as she received chemotherapy recently and had a stage IV cancer per se. The patient was immunocompromised as well. The patient has DIC versus exacerbation of her chronic liver disease. She had upper GI bleed yesterday and I could not rule out extraluminal bleed as well. She had blood and blood product transfused yesterday. Her hemoglobin currently at 8 and no other signs of bleeding present time. Dr. Garcia is following her as well. He concurred with his management. I spoke with him last night. As per Dr. Garcia, her overall prognosis is very poor. Endocrine. We will maintain blood glucose within 140-180 range according to [employer] trial. We will continue with stress dose steroids. GI: The patient is on Protonix drip. No signs of upper GI bleed. The patient is n.p.o. for now. ccm time 40 min Hunter Bhardwaj MD MTDD
[2018-02-22] MEDS ORDERED: Aztreonam 1 Gm in NS 100mL 100 ML IVPB SCH (14:00)
[2018-02-22] MEDS ORDERED: Insulin Regular 1 UNITS/0.01 ML ML IV ONE (14:15)
[2018-02-22] MEDS ORDERED: Morphine 4 mg/ml ISec IVP STA (14:17)
[2018-02-22] MEDS ORDERED: Morphine 2 mg/2 mL syringe IVP PRN (14:19)
[2018-02-22 14:49] LABS: CK MB% 0.7 % (2.5-3.0)
--- NOTE | 2018-02-22 15:37 | CP.PCM.PRO ---
Pronouncement of Note - Clinical Findings Physical Exam: No Response Verbal/Painful Stimuli, Absent Peripheral Pulses{ Carotid & Femoral}, Absent Heart & Breath Sounds, No Pupillary Light Reflex, No Corneal Reflex, Pupils Fixed & Dilated, Absence of Vital Signs - Pronouncement Time Time of Pronouncement of : 14:57 - Notifications Pronouncement Notifications: Family Notified, Atending Notified Rail Grinder Notified: No - Autopsy Autopsy Requested: No - [place] [id number]
[2018-02-22 15:51] VITALS: PULSE 61; RESP 36; O2SAT 57
[2018-02-22 15:55] VITALS: BP 126/38
--- NOTE | 2018-02-22 16:02 | CP.PCM.DIS ---
<Mario Aiken - Last Filed: 02/22/18 16:14> Provider - Provider Date of Admission: 02/20/18 12:43 Attending physician: Loyda Lei MD Time Spent in preparation of Discharge (in minutes): 45 Hospital Course - Lab Results Lab Results: Micro Results 02/20/18 14:15 Urine Urine Culture - Final No Growth (<1,000 CFU/ML) 02/21/18 09:20 Sputum Induced Gram Stain - Final Most Recent Lab Values WBC 23.8 10^3/ul (4.5-11.0) H 02/22/18 11:20 RBC 2.29 10^6/uL (3.5-6.1) L 02/22/18 11:20 Hgb 7.8 g/dL (12.0-16.0) L 02/22/18 11:20 Hct 23.0 % (36.0-48.0) L 02/22/18 11:20 MCV 100.4 fl (80.0-105.0) 02/22/18 11:20 MCH 34.1 pg (25.0-35.0) 02/22/18 11:20 MCHC 33.9 g/dl (31.0-37.0) 02/22/18 11:20 RDW 17.7 % (11.5-14.5) H 02/22/18 11:20 Plt Count 121 10^3/uL (120.0-450.0) 02/22/18 11:20 MPV 12.1 fl (7.0-11.0) H 02/22/18 11:20 Gran % 92.0 % (50.0-68.0) H 02/22/18 11:20 Lymph % (Auto) 5.3 % (22.0-35.0) L 02/22/18 11:20 [place] % (Auto) 2.5 % (1.0-6.0) 02/22/18 11:20 Eos % (Auto) 0.0 % (1.5-5.0) L 02/22/18 11:20 Baso % (Auto) 0.2 % (0.0-3.0) 02/22/18 11:20 Gran # 21.90 (1.4-6.5) H 02/22/18 11:20 Lymph # (Auto) 1.3 (1.2-3.4) 02/22/18 11:20 [place] # (Auto) 0.6 (0.1-0.6) 02/22/18 11:20 Eos # (Auto) 0.0 (0.0-0.7) 02/22/18 11:20 Baso # (Auto) 0.05 K/mm3 (0.0-2.0) 02/22/18 11:20 Neutrophils % (Manual) 92 % (50.0-70.0) H 02/20/18 11:30 Band Neutrophils % 2 % (0-2) 02/20/18 11:30 Lymphocytes % (Manual) 4 % (22.0-35.0) L 02/20/18 11:30 Monocytes % (Manual) 1 % (1.0-6.0) 02/20/18 11:30 Metamyelocytes % 1 % 02/20/18 11:30 Platelet Evaluation Low (NORMAL) 02/20/18 11:30 PT 22.2 SECONDS (9.4-12.5) H 02/22/18 11:00 INR 1.91 (0.93-1.08) H 02/22/18 11:00 APTT 48.1 Seconds (25.1-36.5) H 02/22/18 11:00 Fibrinogen 476 mg/dl (200-393) H 02/21/18 07:00 pCO2 46 mm/Hg (35-45) H 02/22/18 07:44 pO2 75.0 mm/Hg (80-100) L 02/22/18 07:44 HCO3 8.2 mmol/L (21-28) L* 02/22/18 07:44 ABG pH 6.86 (7.35-7.45) L* 02/22/18 07:44 ABG Total CO2 9.6 mmol.L (22-28) L 02/22/18 07:44 ABG O2 Saturation 96.5 % (95-98) 02/22/18 07:44 ABG O2 Content 10.0 ML/dl (15-23) L 02/22/18 07:44 ABG Base Excess -23.8 mmol/L (-2.0-3.0) L 02/22/18 07:44 ABG Hemoglobin 7.5 g/dL (11.7-17.4) L 02/22/18 07:44 ABG Carboxyhemoglobin 1.6 % (0.5-1.5) H 02/22/18 07:44 POC ABG HHb (Measured) 3.4 % (0-5) 02/22/18 07:44 ABG Methemoglobin 1.2 % (0.0-3.0) 02/22/18 07:44 ABG O2 Capacity 10.4 mL/dl (16-24) L 02/22/18 07:44 ABG Potassium 6.9 mmol/L (3.6-5.2) H* 02/21/18 16:15 VBG pH < 6.80 (7.32-7.43) L* 02/21/18 16:48 VBG pCO2 41.0 (40-60) 02/21/18 16:48 VBG HCO3 19.6 mmol/l (21-28) L 02/21/18 03:10 VBG Total CO2 TEST NOT PERFORMED 02/21/18 16:48 VBG O2 Sat (Calc) 100.1 % (40-65) H 02/21/18 16:48 VBG Base Excess -10.1 mmol/L (0.0-2.0) L 02/21/18 03:10 VBG Potassium 6.9 mmol/L (3.6-5.2) H* 02/21/18 16:48 Hgb O2 Saturation 93.9 % (95.0-98.0) L 02/22/18 07:44 Sodium 135.0 mmol/L (132-148) 02/21/18 16:48 Chloride 107.0 mmol/L (98-107) 02/21/18 16:48 Glucose 301 mg/dl (65-105) H 02/21/18 16:48 Lactate 16.6 mmol/L (0.7-2.1) H* 02/21/18 16:48 Mechanical Rate 35 02/21/18 16:15 FiO2 100.0 % 02/22/18 07:44 Tidal Volume 350 02/21/18 16:15 PEEP 18 02/21/18 16:15 Sodium 142 mmol/L (132-148) 02/22/18 11:00 Potassium 7.3 mmol/L (3.6-5.0) H* 02/22/18 11:00 Chloride 101 mmol/L (98-107) 02/22/18 11:00 Carbon Dioxide 9 mmol/L (21-33) L 02/22/18 11:00 Anion Gap 39 (10-20) H 02/22/18 11:00 BUN 69 mg/dL (7-21) H 02/22/18 11:00 Creatinine 3.4 mg/dl (0.7-1.2) H 02/22/18 11:00 Est GFR ( Amer) 17 02/22/18 11:00 Est GFR (Non-Af Amer) 14 02/22/18 11:00 POC Glucose (mg/dL) 230 mg/dL (65-110) H 02/22/18 14:02 Random Glucose 216 mg/dL (70-110) H 02/22/18 11:00 Uric Acid 16.5 mg/dL (2.5-6.2) H 02/22/18 11:30 Calcium 5.1 mg/dL (8.4-10.5) L* 02/22/18 11:00 Phosphorus 17.9 mg/dL (2.5-4.5) H 02/22/18 06:33 Magnesium 2.8 mg/dL (1.7-2.2) H 02/22/18 06:33 Total Bilirubin 4.2 mg/dL (0.2-1.3) H 02/22/18 11:00 GGT 85 U/L (8-78) H 02/20/18 14:15 AST 35795 U/L (14-36) H 02/22/18 11:00 ALT 1816 U/L (7-56) H 02/22/18 11:00 Alkaline Phosphatase 174 U/L (38-126) H 02/22/18 11:00 Lactate Dehydrogenase 807 U/L (333-699) H 02/20/18 11:30 Total Creatine Kinase 16525 U/L (35-230) H 02/22/18 11:30 CK-MB (CK-2) 144.0 ng/mL (0.0-3.6) H 02/22/18 11:30 CK-MB (CK-2) % 0.7 % (2.5-3.0) L 02/22/18 11:30 Troponin I 0.47 ng/mL H* D 02/21/18 15:47 C-Reactive Protein 236.80 mg/L (0.0-9.9) H 02/20/18 15:47 NT-Pro-B Natriuret Pep 6280 pg/mL (0-450) H 02/20/18 11:30 Total Protein 4.7 g/dL (5.8-8.3) L 02/22/18 11:00 Albumin 2.4 g/dL (3.0-4.8) L 02/22/18 11:00 Globulin 2.3 gm/dL 02/22/18 11:00 Albumin/Globulin Ratio 1.0 (1.1-1.8) L 02/22/18 11:00 Procalcitonin 17.09 NG/ML (0.19-0.49) H 02/20/18 15:47 Arterial Blood Potassium 6.9 mmol/L (3.6-5.2) H* 02/21/18 16:15 Venous Blood Potassium 6.9 mmol/L (3.6-5.2) H* 02/21/18 16:48 Urine Color Dark yellow (YELLOW) 02/20/18 14:15 Urine Appearance Sl cloudy (CLEAR) 02/20/18 14:15 Urine pH 6.0 (4.7-8.0) 02/20/18 14:15 Ur Specific [place] 1.020 (1.005-1.035) 02/20/18 14:15 Urine Protein 100 mg/dL (<30 mg/dL) H 02/20/18 14:15 Urine Glucose (UA) 100 mg/dL (NEGATIVE) H 02/20/18 14:15 Urine Ketones Negative mg/dL (NEGATIVE) 02/20/18 14:15 Urine Blood Negative (NEGATIVE) 02/20/18 14:15 Urine Nitrate Negative (NEGATIVE) 02/20/18 14:15 Urine Bilirubin Moderate (NEGATIVE) H 02/20/18 14:15 Urine Urobilinogen 2.0 E.U./dL (<1 E.U./dL) H 02/20/18 14:15 Ur Leukocyte Esterase Trace Brit/uL (NEGATIVE) H 02/20/18 14:15 Urine RBC 1 - 3 /hpf (0-2) 02/20/18 14:15 Urine WBC 10 - 15 /hpf (0-6) 02/20/18 14:15 Ur Epithelial Cells 6 - 8 /hpf (0-5) 02/20/18 14:15 Amorphous Sediment Moderate 02/20/18 14:15 Urine Bacteria Large (NEG) 02/20/18 14:15 Fine Granular Casts 0 - 2 /hpf (0-2) 02/20/18 14:15 Coarse Granular Casts Trace /hpf (0-2) H 02/20/18 14:15 Urine Other [place] 02/20/18 14:15 Urine HCG, Qual Negative (NEGATIVE) 02/20/18 14:15 Salicylates < 1 mg/dL (2.0-20.0) L 02/20/18 12:00 Urine Opiates Screen Positive (NEGATIVE) H 02/20/18 14:15 Urine Methadone Screen Negative (NEGATIVE) 02/20/18 14:15 Acetaminophen < 10.0 ug/ml (10.0-20.0) L 02/20/18 12:00 Ur Barbiturates Screen Negative (NEGATIVE) 02/20/18 14:15 Ur Phencyclidine Scrn Negative (NEGATIVE) 02/20/18 14:15 Ur Amphetamines Screen Negative (NEGATIVE) 02/20/18 14:15 U Benzodiazepines Scrn Negative (NEGATIVE) 02/20/18 14:15 U Oth Cocaine Metabols Negative (NEGATIVE) 02/20/18 14:15 U Cannabinoids Screen Negative (NEGATIVE) 02/20/18 14:15 Alcohol, Quantitative < 10 mg/dL (0-10) 02/20/18 12:00 Hepatitis A IgM Ab Negative (NEGATIVE) 02/20/18 15:47 Hep Bs Antigen Negative (NEGATIVE) 02/20/18 15:47 Hep B Core IgM Ab Negative (NEGATIVE) 02/20/18 15:47 Hepatitis C Antibody Reactive (NEGATIVE) 02/20/18 15:47 Ur L.pneumophila Ag Negative (NEGATIVE) 02/21/18 10:30 Blood Type B POSITIVE 02/21/18 08:30 Blood Type Confirm B POSITIVE 02/21/18 08:50 Antibody Screen Negative 02/21/18 08:30 Crossmatch See Detail 02/21/18 08:30 BBK History Checked No verified bt 02/21/18 08:30 - Hospital Course Hospital Course: 53 year old female with a past medical history of lung cancer, uterine cancer, and asthma who came in today complaining of upper respiratory symptoms. She was reporting feeling subjective fevers at home along with a cough and feeling sick per EMR review. By the time the patient was seen in the emergency department she was intubated for airway protection. ROS was unable to be obtained due to intubation status. Past medical history: lung cancer, uterine cancer, asthma Medications: Will call next of kin Daughter and verify home medications Past surgical history: Will verify with next of kin. Allergies: No known allergies Hospital Course: Patient was found to have healthcare associated pneumonia on chest xray done initially and was started on Zyvox, merrem and doxycycline and a dose of Daptomycin. Patient was found to be encephalopathic, hypoxic and as a result was intubated for airway protection. Patient was also started on pressors to maintain vital signs. [place] cultures were ran and they grew gram positive cocci in chains. Patient had a port and we wanted to rule out an port infection. Patient was seen by Palliative care who reached out to family in regards to patient. Family made aware of poor prognosis and decided to make the patient dnr/dni. Subsequently the family had a change of heart and changed the patient back to a full code. Palliative reached out to family again and convinced to placed her back on dnr/dni. Patient was seen by Infectious diseases, Cardiology , Nephrology and GI. Patient shortly afterwards. Imagin. EKG: atrial flutter with variable AV block. STTW CHANGES Discharge Exam - Head Exam Head Exam: NORMOCEPHALIC Discharge Plan - Follow Up Plan Condition: GOOD Disposition: HOME/ ROUTINE <Agustin Ferro - Last Filed: 02/22/18 16:38> Provider - Provider Date of Admission: 02/20/18 12:43 Attending physician: Loyda Lei MD Hospital Course - Lab Results Lab Results: Micro Results 02/20/18 14:15 Urine Urine Culture - Final No Growth (<1,000 CFU/ML) 02/21/18 09:20 Sputum Induced Gram Stain - Final Most Recent Lab Values WBC 23.8 10^3/ul (4.5-11.0) H 02/22/18 11:20 RBC 2.29 10^6/uL (3.5-6.1) L 02/22/18 11:20 Hgb 7.8 g/dL (12.0-16.0) L 02/22/18 11:20 Hct 23.0 % (36.0-48.0) L 02/22/18 11:20 MCV 100.4 fl (80.0-105.0) 02/22/18 11:20 MCH 34.1 pg (25.0-35.0) 02/22/18 11:20 MCHC 33.9 g/dl (31.0-37.0) 02/22/18 11:20 RDW 17.7 % (11.5-14.5) H 02/22/18 11:20 Plt Count 121 10^3/uL (120.0-450.0) 02/22/18 11:20 MPV 12.1 fl (7.0-11.0) H 02/22/18 11:20 Gran % 92.0 % (50.0-68.0) H 02/22/18 11:20 Lymph % (Auto) 5.3 % (22.0-35.0) L 02/22/18 11:20 [place] % (Auto) 2.5 % (1.0-6.0) 02/22/18 11:20 Eos % (Auto) 0.0 % (1.5-5.0) L 02/22/18 11:20 Baso % (Auto) 0.2 % (0.0-3.0) 02/22/18 11:20 Gran # 21.90 (1.4-6.5) H 02/22/18 11:20 Lymph # (Auto) 1.3 (1.2-3.4) 02/22/18 11:20 [place] # (Auto) 0.6 (0.1-0.6) 02/22/18 11:20 Eos # (Auto) 0.0 (0.0-0.7) 02/22/18 11:20 Baso # (Auto) 0.05 K/mm3 (0.0-2.0) 02/22/18 11:20 Neutrophils % (Manual) 92 % (50.0-70.0) H 02/20/18 11:30 Band Neutrophils % 2 % (0-2) 02/20/18 11:30 Lymphocytes % (Manual) 4 % (22.0-35.0) L 02/20/18 11:30 Monocytes % (Manual) 1 % (1.0-6.0) 02/20/18 11:30 Metamyelocytes % 1 % 02/20/18 11:30 Platelet Evaluation Low (NORMAL) 02/20/18 11:30 PT 22.2 SECONDS (9.4-12.5) H 02/22/18 11:00 INR 1.91 (0.93-1.08) H 02/22/18 11:00 APTT 48.1 Seconds (25.1-36.5) H 02/22/18 11:00 Fibrinogen 476 mg/dl (200-393) H 02/21/18 07:00 pCO2 46 mm/Hg (35-45) H 02/22/18 07:44 pO2 75.0 mm/Hg (80-100) L 02/22/18 07:44 HCO3 8.2 mmol/L (21-28) L* 02/22/18 07:44 ABG pH 6.86 (7.35-7.45) L* 02/22/18 07:44 ABG Total CO2 9.6 mmol.L (22-28) L 02/22/18 07:44 ABG O2 Saturation 96.5 % (95-98) 02/22/18 07:44 ABG O2 Content 10.0 ML/dl (15-23) L 02/22/18 07:44 ABG Base Excess -23.8 mmol/L (-2.0-3.0) L 02/22/18 07:44 ABG Hemoglobin 7.5 g/dL (11.7-17.4) L 02/22/18 07:44 ABG Carboxyhemoglobin 1.6 % (0.5-1.5) H 02/22/18 07:44 POC ABG HHb (Measured) 3.4 % (0-5) 02/22/18 07:44 ABG Methemoglobin 1.2 % (0.0-3.0) 02/22/18 07:44 ABG O2 Capacity 10.4 mL/dl (16-24) L 02/22/18 07:44 ABG Potassium 6.9 mmol/L (3.6-5.2) H* 02/21/18 16:15 VBG pH < 6.80 (7.32-7.43) L* 02/21/18 16:48 VBG pCO2 41.0 (40-60) 02/21/18 16:48 VBG HCO3 19.6 mmol/l (21-28) L 02/21/18 03:10 VBG Total CO2 TEST NOT PERFORMED 02/21/18 16:48 VBG O2 Sat (Calc) 100.1 % (40-65) H 02/21/18 16:48 VBG Base Excess -10.1 mmol/L (0.0-2.0) L 02/21/18 03:10 VBG Potassium 6.9 mmol/L (3.6-5.2) H* 02/21/18 16:48 Hgb O2 Saturation 93.9 % (95.0-98.0) L 02/22/18 07:44 Sodium 135.0 mmol/L (132-148) 02/21/18 16:48 Chloride 107.0 mmol/L (98-107) 02/21/18 16:48 Glucose 301 mg/dl (65-105) H 02/21/18 16:48 Lactate 16.6 mmol/L (0.7-2.1) H* 02/21/18 16:48 Mechanical Rate 35 02/21/18 16:15 FiO2 100.0 % 02/22/18 07:44 Tidal Volume 350 02/21/18 16:15 PEEP 18 02/21/18 16:15 Sodium 142 mmol/L (132-148) 02/22/18 11:00 Potassium 7.3 mmol/L (3.6-5.0) H* 02/22/18 11:00 Chloride 101 mmol/L (98-107) 02/22/18 11:00 Carbon Dioxide 9 mmol/L (21-33) L 02/22/18 11:00 Anion Gap 39 (10-20) H 02/22/18 11:00 BUN 69 mg/dL (7-21) H 02/22/18 11:00 Creatinine 3.4 mg/dl (0.7-1.2) H 02/22/18 11:00 Est GFR ( Amer) 17 02/22/18 11:00 Est GFR (Non-Af Amer) 14 02/22/18 11:00 POC Glucose (mg/dL) 230 mg/dL (65-110) H 02/22/18 14:02 Random Glucose 216 mg/dL (70-110) H 02/22/18 11:00 Uric Acid 16.5 mg/dL (2.5-6.2) H 02/22/18 11:30 Calcium 5.1 mg/dL (8.4-10.5) L* 02/22/18 11:00 Phosphorus 17.9 mg/dL (2.5-4.5) H 02/22/18 06:33 Magnesium 2.8 mg/dL (1.7-2.2) H 02/22/18 06:33 Total Bilirubin 4.2 mg/dL (0.2-1.3) H 02/22/18 11:00 GGT 85 U/L (8-78) H 02/20/18 14:15 AST 82192 U/L (14-36) H 02/22/18 11:00 ALT 1816 U/L (7-56) H 02/22/18 11:00 Alkaline Phosphatase 174 U/L (38-126) H 02/22/18 11:00 Lactate Dehydrogenase 807 U/L (333-699) H 02/20/18 11:30 Total Creatine Kinase 02008 U/L (35-230) H 02/22/18 11:30 CK-MB (CK-2) 144.0 ng/mL (0.0-3.6) H 02/22/18 11:30 CK-MB (CK-2) % 0.7 % (2.5-3.0) L 02/22/18 11:30 Troponin I 0.47 ng/mL H* D 02/21/18 15:47 C-Reactive Protein 236.80 mg/L (0.0-9.9) H 02/20/18 15:47 NT-Pro-B Natriuret Pep 6280 pg/mL (0-450) H 02/20/18 11:30 Total Protein 4.7 g/dL (5.8-8.3) L 02/22/18 11:00 Albumin 2.4 g/dL (3.0-4.8) L 02/22/18 11:00 Globulin 2.3 gm/dL 02/22/18 11:00 Albumin/Globulin Ratio 1.0 (1.1-1.8) L 02/22/18 11:00 Procalcitonin 17.09 NG/ML (0.19-0.49) H 02/20/18 15:47 Arterial Blood Potassium 6.9 mmol/L (3.6-5.2) H* 02/21/18 16:15 Venous Blood Potassium 6.9 mmol/L (3.6-5.2) H* 02/21/18 16:48 Urine Color Dark yellow (YELLOW) 02/20/18 14:15 Urine Appearance Sl cloudy (CLEAR) 02/20/18 14:15 Urine pH 6.0 (4.7-8.0) 02/20/18 14:15 Ur Specific [place] 1.020 (1.005-1.035) 02/20/18 14:15 Urine Protein 100 mg/dL (<30 mg/dL) H 02/20/18 14:15 Urine Glucose (UA) 100 mg/dL (NEGATIVE) H 02/20/18 14:15 Urine Ketones Negative mg/dL (NEGATIVE) 02/20/18 14:15 Urine Blood Negative (NEGATIVE) 02/20/18 14:15 Urine Nitrate Negative (NEGATIVE) 02/20/18 14:15 Urine Bilirubin Moderate (NEGATIVE) H 02/20/18 14:15 Urine Urobilinogen 2.0 E.U./dL (<1 E.U./dL) H 02/20/18 14:15 Ur Leukocyte Esterase Trace Brit/uL (NEGATIVE) H 02/20/18 14:15 Urine RBC 1 - 3 /hpf (0-2) 02/20/18 14:15 Urine WBC 10 - 15 /hpf (0-6) 02/20/18 14:15 Ur Epithelial Cells 6 - 8 /hpf (0-5) 02/20/18 14:15 Amorphous Sediment Moderate 02/20/18 14:15 Urine Bacteria Large (NEG) 02/20/18 14:15 Fine Granular Casts 0 - 2 /hpf (0-2) 02/20/18 14:15 Coarse Granular Casts Trace /hpf (0-2) H 02/20/18 14:15 Urine Other [place] 02/20/18 14:15 Urine HCG, Qual Negative (NEGATIVE) 02/20/18 14:15 Salicylates < 1 mg/dL (2.0-20.0) L 02/20/18 12:00 Urine Opiates Screen Positive (NEGATIVE) H 02/20/18 14:15 Urine Methadone Screen Negative (NEGATIVE) 02/20/18 14:15 Acetaminophen < 10.0 ug/ml (10.0-20.0) L 02/20/18 12:00 Ur Barbiturates Screen Negative (NEGATIVE) 02/20/18 14:15 Ur Phencyclidine Scrn Negative (NEGATIVE) 02/20/18 14:15 Ur Amphetamines Screen Negative (NEGATIVE) 02/20/18 14:15 U Benzodiazepines Scrn Negative (NEGATIVE) 02/20/18 14:15 U Oth Cocaine Metabols Negative (NEGATIVE) 02/20/18 14:15 U Cannabinoids Screen Negative (NEGATIVE) 02/20/18 14:15 Alcohol, Quantitative < 10 mg/dL (0-10) 02/20/18 12:00 Hepatitis A IgM Ab Negative (NEGATIVE) 02/20/18 15:47 Hep Bs Antigen Negative (NEGATIVE) 02/20/18 15:47 Hep B Core IgM Ab Negative (NEGATIVE) 02/20/18 15:47 Hepatitis C Antibody Reactive (NEGATIVE) 02/20/18 15:47 Ur L.pneumophila Ag Negative (NEGATIVE) 02/21/18 10:30 Blood Type B POSITIVE 02/21/18 08:30 Blood Type Confirm B POSITIVE 02/21/18 08:50 Antibody Screen Negative 02/21/18 08:30 Crossmatch See Detail 02/21/18 08:30 BBK History Checked No verified bt 02/21/18 08:30 Attending/Attestation - Attestation I have personally seen and examined this patient.: Yes I have fully participated in the care of the patient.: Yes I have reviewed all pertinent clinical information, including history, physical exam and plan: Yes Notes (Text): Patient seen and examined. Agree with above Terminal extubation
--- NOTE | 2018-02-22 23:40 | CP.PCM.CON ---
Past Patient History - Past Medical History & Family History Past Medical History?: Yes - Past Social History Smoking Status: Current Some Days Smoker - CARDIAC Hx Cardiac Disorders: No - PULMONARY Hx Respiratory Disorders: Yes Hx Asthma: Yes Hx Chronic Obstructive Pulmonary Disease (COPD): Yes Hx Lung Cancer: Yes - NEUROLOGICAL Hx Neurological Disorder: No - HEENT Hx HEENT Problems: No - RENAL Hx Chronic Kidney Disease: No - ENDOCRINE/METABOLIC Hx Endocrine Disorders: No - HEMATOLOGICAL/ONCOLOGICAL Hx Blood Disorders: Yes Hx Cancer: Yes Hx Hepatitis B: Yes Hx Hepatitis C: Yes Other/Comment: MRSA abcess on back - INTEGUMENTARY Hx Dermatological Problems: No - MUSCULOSKELETAL/RHEUMATOLOGICAL Hx Musculoskeletal Disorders: No - GASTROINTESTINAL Hx Gastrointestinal Disorders: Yes Hx Gastroesophageal Reflux: Yes - GENITOURINARY/GYNECOLOGICAL Hx Genitourinary Disorders: No - PSYCHIATRIC Hx Psychophysiologic Disorder: Yes Hx Depression: Yes - SURGICAL HISTORY Hx Section: Yes Hx Hysterectomy: Yes Hx Vascular Access Device: Yes (SRI CATH INSERTION X 2 & REMOVAL ) Other/Comment: SPLEENECTOMY 2009 - ANESTHESIA Hx Anesthesia: Yes Hx Anesthesia Reactions: No Hx Malignant Hyperthermia: No Meds Allergies/Adverse Reactions: Allergies Allergy/AdvReac Type Severity Reaction Status Date / Time No Known Allergies Allergy Verified 02/20/18 19:21 - Medications Medications: Current Medications Enoxaparin Sodium (Lovenox) 86 mg SC DAILY LEE ANN PRN Reason: Protocol Doxycycline Hyclate 100 mg/ (Sodium Chloride) 100 mls @ 100 mls/hr IVPB Q12 LEE ANN PRN Reason: Protocol Last Admin: 02/22/18 10:55 Dose: 100 mls/hr Acetaminophen (Ofirmev) 1,000 mg in 100 mls @ 400 mls/hr IVPB Q4H PRN PRN Reason: Temperature Stop: 02/23/18 01:04 Last Admin: 02/21/18 09:00 Dose: 400 mls/hr Meropenem 500 mg/ Sodium (Chloride) 50 mls @ 100 mls/hr IVPB Q12 LEE ANN PRN Reason: Protocol Stop: 03/01/18 10:01 Last Admin: 02/22/18 10:52 Dose: 100 mls/hr Results - Vital Signs Recent Vital Signs: Last Vital Signs Temp 98.2 F 02/22/18 06:00 Pulse 61 02/22/18 14:39 Resp 36 H 02/22/18 14:55 BP 126/38 L 02/22/18 13:00 Pulse Ox 57 L 02/22/18 14:20 - Labs Result Diagrams: 02/22/18 11:20 02/22/18 11:00 Labs: Laboratory Results - last 24 hr 02/22/18 02/22/18 02/22/18 01:56 05:40 06:33 WBC RBC Hgb Hct MCV MCH MCHC RDW Plt Count MPV Gran % Lymph % (Auto) [place] % (Auto) Eos % (Auto) Baso % (Auto) Gran # Lymph # (Auto) [place] # (Auto) Eos # (Auto) Baso # (Auto) PT INR APTT pCO2 pO2 HCO3 ABG pH ABG Total CO2 ABG O2 Saturation ABG O2 Content ABG Base Excess ABG Hemoglobin ABG Carboxyhemoglobin POC ABG HHb (Measured) ABG Methemoglobin ABG O2 Capacity Hgb O2 Saturation FiO2 Sodium Potassium Chloride Carbon Dioxide Anion Gap BUN Creatinine Est GFR ( Amer) Est GFR (Non-Af Amer) POC Glucose (mg/dL) 245 H 244 H Random Glucose Uric Acid Calcium Phosphorus 17.9 H Magnesium 2.8 H Total Bilirubin AST ALT Alkaline Phosphatase Total Creatine Kinase CK-MB (CK-2) CK-MB (CK-2) % Total Protein Albumin Globulin Albumin/Globulin Ratio 02/22/18 02/22/18 02/22/18 06:33 06:33 06:33 WBC 24.9 H RBC 2.40 L Hgb 8.0 L Hct 23.6 L MCV 98.3 MCH 33.3 MCHC 33.9 RDW 17.0 H Plt Count 90 L MPV 9.9 Gran % 91.8 H Lymph % (Auto) 5.3 L [place] % (Auto) 2.7 Eos % (Auto) 0.0 L Baso % (Auto) 0.2 Gran # 22.84 H Lymph # (Auto) 1.3 [place] # (Auto) 0.7 H Eos # (Auto) 0.0 Baso # (Auto) 0.04 PT 19.7 H INR 1.69 H APTT 47.8 H pCO2 pO2 HCO3 ABG pH ABG Total CO2 ABG O2 Saturation ABG O2 Content ABG Base Excess ABG Hemoglobin ABG Carboxyhemoglobin POC ABG HHb (Measured) ABG Methemoglobin ABG O2 Capacity Hgb O2 Saturation FiO2 Sodium 143 Potassium 7.4 H* Chloride 101 Carbon Dioxide 9 L Anion Gap 40 H BUN 67 H Creatinine 3.1 H Est GFR ( Amer) 19 Est GFR (Non-Af Amer) 16 POC Glucose (mg/dL) Random Glucose 210 H Uric Acid Calcium 5.2 L* Phosphorus Magnesium Total Bilirubin 3.8 H AST 20140 H ALT 1564 H Alkaline Phosphatase 159 H D Total Creatine Kinase CK-MB (CK-2) CK-MB (CK-2) % Total Protein 4.9 L Albumin 2.5 L Globulin 2.4 Albumin/Globulin Ratio 1.0 L 02/22/18 02/22/18 02/22/18 07:44 09:20 11:00 WBC RBC Hgb Hct MCV MCH MCHC RDW Plt Count MPV Gran % Lymph % (Auto) [place] % (Auto) Eos % (Auto) Baso % (Auto) Gran # Lymph # (Auto) [place] # (Auto) Eos # (Auto) Baso # (Auto) PT 22.2 H INR 1.91 H APTT 48.1 H pCO2 46 H pO2 75.0 L HCO3 8.2 L* ABG pH 6.86 L* ABG Total CO2 9.6 L ABG O2 Saturation 96.5 ABG O2 Content 10.0 L ABG Base Excess -23.8 L ABG Hemoglobin 7.5 L ABG Carboxyhemoglobin 1.6 H POC ABG HHb (Measured) 3.4 ABG Methemoglobin 1.2 ABG O2 Capacity 10.4 L Hgb O2 Saturation 93.9 L FiO2 100.0 Sodium Potassium Chloride Carbon Dioxide Anion Gap BUN Creatinine Est GFR ( Amer) Est GFR (Non-Af Amer) POC Glucose (mg/dL) 256 H Random Glucose Uric Acid Calcium Phosphorus Magnesium Total Bilirubin AST ALT Alkaline Phosphatase Total Creatine Kinase CK-MB (CK-2) CK-MB (CK-2) % Total Protein Albumin Globulin Albumin/Globulin Ratio 02/22/18 02/22/18 02/22/18 11:00 11:20 11:30 WBC 23.8 H RBC 2.29 L Hgb 7.8 L Hct 23.0 L MCV 100.4 MCH 34.1 MCHC 33.9 RDW 17.7 H Plt Count 121 MPV 12.1 H Gran % 92.0 H Lymph % (Auto) 5.3 L [place] % (Auto) 2.5 Eos % (Auto) 0.0 L Baso % (Auto) 0.2 Gran # 21.90 H Lymph # (Auto) 1.3 [place] # (Auto) 0.6 Eos # (Auto) 0.0 Baso # (Auto) 0.05 PT INR APTT pCO2 pO2 HCO3 ABG pH ABG Total CO2 ABG O2 Saturation ABG O2 Content ABG Base Excess ABG Hemoglobin ABG Carboxyhemoglobin POC ABG HHb (Measured) ABG Methemoglobin ABG O2 Capacity Hgb O2 Saturation FiO2 Sodium 142 Potassium 7.3 H* Chloride 101 Carbon Dioxide 9 L Anion Gap 39 H BUN 69 H Creatinine 3.4 H Est GFR ( Amer) 17 Est GFR (Non-Af Amer) 14 POC Glucose (mg/dL) Random Glucose 216 H Uric Acid 16.5 H Calcium 5.1 L* Phosphorus Magnesium Total Bilirubin 4.2 H AST 94224 H ALT 1816 H Alkaline Phosphatase 174 H Total Creatine Kinase 77827 H CK-MB (CK-2) 144.0 H CK-MB (CK-2) % 0.7 L Total Protein 4.7 L Albumin 2.4 L Globulin 2.3 Albumin/Globulin Ratio 1.0 L 02/22/18 14:02 WBC RBC Hgb Hct MCV MCH MCHC RDW Plt Count MPV Gran % Lymph % (Auto) [place] % (Auto) Eos % (Auto) Baso % (Auto) Gran # Lymph # (Auto) [place] # (Auto) Eos # (Auto) Baso # (Auto) PT INR APTT pCO2 pO2 HCO3 ABG pH ABG Total CO2 ABG O2 Saturation ABG O2 Content ABG Base Excess ABG Hemoglobin ABG Carboxyhemoglobin POC ABG HHb (Measured) ABG Methemoglobin ABG O2 Capacity Hgb O2 Saturation FiO2 Sodium Potassium Chloride Carbon Dioxide Anion Gap BUN Creatinine Est GFR ( Amer) Est GFR (Non-Af Amer) POC Glucose (mg/dL) 230 H Random Glucose Uric Acid Calcium Phosphorus Magnesium Total Bilirubin AST ALT Alkaline Phosphatase Total Creatine Kinase CK-MB (CK-2) CK-MB (CK-2) % Total Protein Albumin Globulin Albumin/Globulin Ratio
--- NOTE | 2018-02-23 10:30 | CARD ---
APPROVED REPORT EXAM: Two-dimensional and M-mode echocardiogram with Doppler and color Doppler. Other Information Quality : FairRhythm : INDICATION Infection:Rule out subacute bacterial endocarditis 2D DIMENSIONS Left Atrium (2D)3.4 (1.6-4.0cm)IVSd0.8 (0.7-1.1cm) LVDd5.2 (3.9-5.9cm)PWd1.0 (0.7-1.1cm) LVDs3.2 (2.5-4.0cm)FS (%) 37.3 % LVEF (%)67.0 (>50%) M-Mode DIMENSIONS Aortic Root2.50 (2.2-3.7cm)Aortic Cusp Exc.1.70 (1.5-2.0cm) Aortic Valve AoV Peak Mpjhotxr072.0cm/s Mitral Valve MV E Yesfbdwp97.1cm/sMV A Fckossdg46.4cm/sE/A ratio1.3 TDI E/Lateral E'0.0E/Medial E'0.0 Tricuspid Valve TR Peak [id number]/sRAP [id number] Peak Gr.33mmHg [id number] <Conclusion> F/U study ordered to R/O endocarditis. Limited study. No vegetation seen on AV, MV or TV. The PV was not adequately visualized.
--- NOTE | 2018-02-23 12:32 | CP.PCM.PN ---
Subjective - Date & Time of Evaluation Date of Evaluation: 02/21/18 Time of Evaluation: 18:00 - Subjective Subjective: Vented, family at bedside. Objective - Vital Signs/Intake and Output Vital Signs (last 24 hours): Temp Pulse Resp BP Pulse Ox 98.2 F 61 36 H 126/38 L 57 L 02/22/18 06:00 02/22/18 14:39 02/22/18 14:55 02/22/18 13:00 02/22/18 14:20 - Labs Labs: 02/22/18 11:20 02/22/18 11:00 PT 22.2 SECONDS (9.4-12.5) H 02/22/18 11:00 INR 1.91 (0.93-1.08) H 02/22/18 11:00 APTT 48.1 Seconds (25.1-36.5) H 02/22/18 11:00 - Head Exam Head Exam: ATRAUMATIC - Eye Exam Eye Exam: Normal appearance - ENT Exam ENT Exam: Mucous Membranes Dry - Respiratory Exam Respiratory Exam: NORMAL BREATHING PATTERN - Cardiovascular Exam Cardiovascular Exam: +S1, +S2 - GI/Abdominal Exam GI & Abdominal Exam: Normal Bowel Sounds - Extremities Exam Extremities Exam: Pedal Edema Assessment and Plan (1) Anemia Assessment & Plan: chronic disease, recent chemotherapy, GI blood loss transfusion support Status: Acute (2) Coagulopathy Assessment & Plan: rule out DIC FFP Status: Acute (3) Thrombocytopenia Assessment & Plan: rule out DIC; check fibrinogen element of chemotherapy effect sepsis Status: Acute (4) Leukocytosis Assessment & Plan: on antibiotics Status: Acute (5) Uterine cancer Assessment & Plan: stage IV on outpatient chemotherapy Status: Acute
== END 2018-02-22 15:00 | DRG 584 ==
LOC: ED 11:18 → ERH 12:43 → ICU 14:24
PROVIDERS: ADMIT Internal Medicine; ATTEND Internal Medicine
PROC: 5A1945Z Respiratory Ventilation, 24-96 Consecutive Hours (ICD-10-PCS; principal; 2018-02-20)
PROC: 04HK33Z Insertion of Infusion Device into Right Femoral Artery, Percutaneous Approach (ICD-10-PCS; 2018-02-20)
PROC: B44FZZZ Ultrasonography of Right Lower Extremity Arteries (ICD-10-PCS; 2018-02-20)
PROC: 0BH17EZ Insertion of Endotracheal Airway into Trachea, Via Natural or Artificial Opening (ICD-10-PCS; 2018-02-20)
PROC: 30233K1 Transfusion of Nonautologous Frozen Plasma into Peripheral Vein, Percutaneous Approach (ICD-10-PCS; 2018-02-21)
PROC: 30233N1 Transfusion of Nonautologous Red Blood Cells into Peripheral Vein, Percutaneous Approach (ICD-10-PCS; 2018-02-21)
PROC: 6A550Z2 Pheresis of Platelets, Single (ICD-10-PCS; 2018-02-21)
PROC: 6A550Z2 Pheresis of Platelets, Single (ICD-10-PCS; 2018-02-22)
DX: A41.01 Sepsis due to Methicillin susceptible Staphylococcus aureus (principal); D65 Disseminated intravascular coagulation [defibrination syndrome]; N17.9 Acute kidney failure, unspecified; R65.21 Severe sepsis with septic shock; J15.4 Pneumonia due to other streptococci; J96.91 Respiratory failure, unspecified with hypoxia; K29.61 Other gastritis with bleeding; K72.00 Acute and subacute hepatic failure without coma; M62.82 Rhabdomyolysis; Z99.11 Dependence on respirator [ventilator] status; C77.9 Secondary and unspecified malignant neoplasm of lymph node, unspecified; C79.51 Secondary malignant neoplasm of bone; C79.89 Secondary malignant neoplasm of other specified sites; E87.2 Acidosis; E87.5 Hyperkalemia; I48.92 Unspecified atrial flutter; J44.0 Chronic obstructive pulmonary disease with (acute) lower respiratory infection; J95.851 Ventilator associated pneumonia; D64.9 Anemia, unspecified; E66.9 Obesity, unspecified; E83.51 Hypocalcemia; F32.89 Other specified depressive episodes; F17.200 Nicotine dependence, unspecified, uncomplicated; G93.41 Metabolic encephalopathy; I44.30 Unspecified atrioventricular block; I48.91 Unspecified atrial fibrillation; K21.9 Gastro-esophageal reflux disease without esophagitis; T45.1X5A Adverse effect of antineoplastic and immunosuppressive drugs, initial encounter; Y84.8 Other medical procedures as the cause of abnormal reaction of the patient, or of later complication, without mention of misadventure at the time of the procedure; Y95 Nosocomial condition; Z51.5 Encounter for palliative care; Z66 Do not resuscitate; Z68.33 Body mass index [BMI] 33.0-33.9, adult; Z79.1 Long term (current) use of non-steroidal anti-inflammatories (NSAID); Z90.710 Acquired absence of both cervix and uterus; Z98.891 History of uterine scar from previous surgery; Z85.118 Personal history of other malignant neoplasm of bronchus and lung; Z85.42 Personal history of malignant neoplasm of other parts of uterus; R40.2412 Glasgow coma scale score 13-15, at arrival to emergency department